=== PATIENT | male | born 1955 | race Caucasian/White ===

== ENCOUNTER 2018-03-09 09:51 | Emergency (ER) | payer OTHER ==
--- NOTE | 2018-03-09 09:55 | ER Document Report ---
ED Neuro Symptoms/Deficit - General Stated Complaint: STROKE ALERT Time Seen by Provider: 03/09/18 09:54 Notes: 62-year-old male presents via EMS with chief complaint of stroke. Symptoms began approximately 530 this morning. Patient was recently discharged from [facility] for renal failure on dialysis. Had recent surgery to the left upper extremity for AV fistula for dialysis. states that he was taking his medications when he became garbled and speech and fell onto the floor. Whole left side was affected. Moving right upper extremity and right leg. Difficulty with speech. Facial droop. Looking to the right. - HPI Patient complains to provider of: Difficulty standing, Difficulty walking, Facial Droop, Falling, Paralysis, Paresthesia, Speech Impairment, Vision Changes , Weakness Onset: This morning Symptoms are: Constant Duration: Continues in ED - Related Data Allergies/Adverse Reactions: Sulfa (Sulfonamide Antibiotics) Adverse Reaction (Verified 03/09/18 10:27) Vomiting sulfamethoxazole [From Bactrim] Adverse Reaction (Verified 03/09/18 10:27) Vomiting trimethoprim [From Bactrim] Adverse Reaction (Verified 03/09/18 10:27) Vomiting Past Medical History - General Information source: Relative - Social History Smoking Status: Unknown if Ever Smoked Cigarette use (# per day): No Frequency of alcohol use: None Drug Abuse: None Lives with: Family, Spouse/Significant other Family History: Reviewed & Not Pertinent - Medical History Notes: Hypertension, diabetes, renal failure Review of Systems - Review of Systems -: Yes ROS unobtainable due to patient's medical condition Physical Exam - Vital signs Interpretation: Hypertensive - General General appearance: Appears well, Alert - HEENT Head: Normocephalic, Atraumatic Eyes: Normal Pupils: PERRL Notes: Left-sided facial droop, right gaze - Respiratory Respiratory status: No respiratory distress Chest status: Nontender Breath sounds: Normal Chest palpation: Normal - Cardiovascular Rhythm: Regular Heart sounds: Normal auscultation Murmur: No - Abdominal Inspection: Normal Distension: No distension Bowel sounds: Normal Tenderness: Nontender Organomegaly: No organomegaly - Back Back: Normal, Nontender - Extremities General upper extremity: Normal inspection, Nontender, Normal color, Normal ROM , Normal temperature General lower extremity: Normal inspection, Nontender, Normal color, Normal ROM , Normal temperature, Normal weight bearing. No: Sal's sign - Neurological Neuro grossly intact: No Cognition: Confused [place] Coma Scale Eye Opening: Spontaneous [place] Coma Scale Motor: None - Able to move right upper extremity and right lower extremity. Complete left-sided neglect Speech: Expressive aphasia Cranial nerves: Facial palsy, Gaze palsy Motor strength normal: RUE, RLE. No: LUE, LLE Sensory: Normal - Skin Skin Temperature: Warm Skin Moisture: Dry Skin Color: Normal Course - Re-evaluation Re-evalutation: 03/09/18 10:20 Patient is right at 4-1/2 hours, hypertensive, recent vascular surgery. Does not meet criteria for intravenous thrombolytics but may benefit from neurovascular interventional treatment. Will attempt to transfer immediately. CT scan report read as consistent with large right MCA CVA. 03/09/18 10:46 Patient accepted at [facility] in [place]. Dr. Nelson and Dr. Franklin accepting. Will readdress airway management when care flight gets here. I have spoken with the family and is okay with endotracheal intubation if needed. At this time patient does have a mild gag is sitting upright. Is n.p.o. 03/09/18 10:51 Laboratory 03/09/18 03/09/18 03/09/18 10:04 10:04 10:04 WBC 5.4 RBC 3.82 L Hgb 9.6 L Hct 30.7 L MCV 80 MCH 25.2 L MCHC 31.4 L RDW 19.7 H Plt Count 175 Seg Neutrophils % 67.1 Lymphocytes % 20.0 Monocytes % 6.6 Eosinophils % 5.2 Basophils % 1.1 Absolute Neutrophils 3.6 Absolute Lymphocytes 1.1 Absolute Monocytes 0.4 Absolute Eosinophils 0.3 Absolute Basophils 0.1 PT 15.0 INR 1.13 APTT 26.8 Sodium 151.7 H Potassium 5.4 H Chloride 109 H Carbon Dioxide 25 Anion Gap 18 BUN 69 H Creatinine 3.41 H Est GFR ( Amer) 22 L Est GFR (Non-Af Amer) 18 L Glucose 179 H Calcium 9.1 Total Bilirubin 0.7 Direct Bilirubin 0.4 Neonat Total Bilirubin Not Reportable Neonat Direct Bilirubin Not Reportable Neonat Indirect Bili Not Reportable AST 12 L ALT 22 Alkaline Phosphatase 74 Creatine Kinase 36 L Total Protein 6.4 Albumin 4.1 he has been reevaluated. At this time she patient remained stable for transport. 10:55 AM - Laboratory Result Diagrams: 03/09/18 10:04 03/09/18 10:04 - EKG Interpretation by Me EKG shows normal: Sinus rhythm, [place], Intervals, QRS Complexes. abnormal: ST-T Waves Additional EKG results interpreted by me: 03/09/18 10:17 ST segment depression noted in V4 with T-wave inversions in lead II, III, aVF, V4 V5 and V6 Critical Care Note - Critical Care Note Total time excluding time spent on procedures (mins): 60 Comments: Acute strokelike symptoms, consultation with specialists, coordination of care. ED Alteplase [employer]/Exc Criteria - Inclusion Criteria: 1: Patient presented to ED within 3 hours of acute ischemic stroke symptom onset ? -: No 2: Did baseline CT exclude intracranial hemorrhage and/or other risk factors? -: Yes 3: Is the age of the patient 18 years of age or greater? -: Yes : If any of the above questions are answered "NO" then stop, patient is not a candidate for Alteplase, : If all of the above questions are answered "YES" then continue with Exclusion Criteria. - Exclusion Criteria: 1: Is there evidence of intracranial hemorrhage on baseline CT? -: No 2: Is there suspicion of subarachnoid hemorrhage (even if CT negative)? -: No 3: Is there a history of serious head trauma, recent previous stroke or LA within 3 months? -: No 4: Does the patient have a clinical presentation consistent with LA or post-LA pericarditis? -: No 5: Is there history of intracranial hemorrhage? -: No 6: On repeated measurement is Systolic BP greater than 185mmHg or Diastolic BP greater that 110 mmHg and is aggressive treatment needed to reduce blood pressure to these limits (e.g. constant infusion of an anti-hypertensive)? -: No 7: Did the patient awake with stroke symptoms? -: No 8: Has the patient had a lumbar puncture or an arterial puncture at a non- compressile site within 7 days? -: No 9: With in the last 14 days did the patient have surgery or major trauma? -: Yes 10: Is the patient or less than 2 weeks? -: No 11: Was there any active bleeding or acute trauma? -: No 12: Does the patient have intracranial neoplasm, arteriovenous malformation or aneurysm? -: Yes - fistula left arm 13: Does the patient have abnormal glucose (less than 50 or greater than 400mg/ dl)? Record glucose in Comment. -: No 14: Patient has rapidly improving symptoms at the time Alteplase is to be Administered. -: No 15: Does the patient have any risks for bleeding, including but not limited to: a.: Current use of Coumadin with PT greater than 15 seconds or INR greater than 1.7. b.: Current use of Pradaxa (Dabigatran). c.: Heparin administereed within the past 48 hours and PTT elevated. d.: Platelet count less than 100,000/mm. e.: Major surgery or serious trauma within 14 days. f.: Gastrointestinal or gynecological urinary bleeding within 14 days. g.: Myocardial Infarction (LA) within 3 months. -: Yes : If the answer to any of the above questions is "YES" then stop, the patient is not a candidate for Alteplase. : If the answer to all of the above questions is "NO" then the patient may be eligible for the Administration of Alteplase. : If the patient is noted to have seizure activity at onset of Stroke symptoms; Consult Neurologist for further evaluation. - The patient is: -: Included and is eligible to receive Alteplase. *Initiate bed placement at higher level of care* --: No Reviewd risks & benefits of thrombolytic therapy: I have reviewed the risks and benefits of thrombolytic therapy with the patient and/or his/her family. Yes -: Excluded and not eligible to receive Alteplase for the above exclusions. --: Yes - Greater than 3 hours symptoms, recent surgery, AV malformation ( surgical) -: Excluded and not eligible to receive Alteplase for other reasons (specify in comments): - Diagnosis of TIA: -: Patient presented with transient symptoms that are now resolved and no other neurologic findings are currently present. List symptoms in comments. -: Patient is NOT a candidate for tPA. -: ____(put name in comment) has been consulted for admission and continued evaluation of risk factor assessment. ED NIH Stroke Scale - NIH Stroke Scale When completed:: Before Alteplase *: 1. NIH scale should be completed with appropriate accompanying assessment tools. *: 2. The NIH should reflect what the patient is capable of doing and should not be coached by the clinician. 1a. Level of Consciousness: 0=Alert;keenly responsive -: 1=Drowsy -: 2=Obtunded -: 3=Coma/unresponsive or reflex to noxious stimuli. 1a. Responses: 2 1b. Orientation Questions: a. What month is it? -: b. How old are you? -: 0=Answers both questions correctly. -: 1=Answers one question correctly or patient is intubated or has orotracheal trauma. -: 2=Answers neither question correctly. 1b. Responses: 2 1c. Response to commands: a. Open and close eyes? -: b. Manager Urgent [facility] and release hand? -: Credit is given despite weakness. Demonstration of task is permitted. Substitute command if hands cannot be used. -: 0=Performs both tasks correctly -: 1=Performs one task correctly -: 2=Performs neither task correctly 1c. Responses: 0 2. Gaze: Establish eye contact and instruct patient to "Follow my finger" -: 0=Normal -: 1=Partial gaze palsy. Gaze is abnormal in one or both eyes, but where forced deviation or total gaze paresis is not present. -: 2=Forced deviation or total gaze paresis. 2. Responses: 2 3. Visual Erwin: Sees fingers in all four quadrants. -: 0=No visual loss. -: 1=Partial hemianopsia. -: 2=Complete hemianopsia. -: 3=Bilateral hemianopsia (including Cortical blindness) 3. Responses: 2 4. Facial Movement: Instruct patient to: -: a. Show me your teeth -: b. Raise your eyebrows -: c. Close your eyes -: d. Smile -: 0=Normal symmetrical movement -: 1=Minor paralysis (flattened nasolabial fold, asymmetry on smiling). -: 2=Partial paralysis (total or near total paralysis of lower face). -: 3=Complete paralysis of upper and lower face 4. Responses: 3 5. Motor functions (left arm): Alternate sides and extend each arm with palms down (90 degrees if sitting or 45 degrees for supine). -: 0=No drift;limb holds for full 10 seconds. -: 1=Drift; limb holds but drifts down before full 10 seconds, but does not hit bed. -: 2=Some effort against gravity; limb cannot get to or maintain position. -: 3=No effort against gravity; limb falls. -: 4=No movement. -: UN=Amputation, joint fusion, explain in comments. 5. Responses (left arm): 4 5. Motor Functions (right arm): Alternate sides and extend each arm with palms down (90 degrees if sitting or 45 degrees for supine). -: 0=No drift;limb holds for full 10 seconds. -: 1=Drift; limb holds but drifts down before full 10 seconds, but does not hit bed. -: 2=Some effort against gravity; limb cannot get to or maintain position. -: 3=No effort against gravity; limb falls. -: 4=No movement. -: UN=Amputation, joint fusion, explain in comments. 5. Responses (right arm): 0 6. Motor Functions (left leg): With patient lying supine, alternate sides and extend each leg (30 degrees always while supine). -: 0=No drift, leg holds position for full 5 seconds -: 1=Drift; leg falls before full 5 seconds but does not hit bed. -: 2=Some effort against gravity, leg falls to bed but some effort against gravity. -: 3=No effort against gravity, leg falls to bed immediately. -: 4=No movement. -: UN=Amputation, joint fusion; explain in comments. 6. Responses (left leg): 4 6. Motor Functions (right leg): With patient lying supine, alternate sides and extend each leg (30 degrees always while supine). -: 0=No drift, leg holds position for full 5 seconds -: 1=Drift; leg falls before full 5 seconds but does not hit bed. -: 2=Some effort against gravity, leg falls to bed but some effort against gravity. -: 3=No effort against gravity, leg falls to bed immediately. -: 4=No movement. -: UN=Amputation, joint fusion; explain in comments. 6. Responses (right leg): 0 7. Limb Ataxia: With eyes open instruct patient to: -: a. "Touch your finger to your nose". -: b. "Touch your heel to your vences" -: 0=Absent -: 1=Present in one limb. -: 2=Present in two limbs. -: UN=Amputation or joint fusion; explain in comments. 7. Responses: 1 7. If ataxia present choose as appropriate: Right arm, Right leg 8. Sensory: Test sensation using pinprick or noxious stimuli. Test as many body parts as possible. -: 0=Normal;no sensory loss -: 1=Mile to moderate sensory loss (patient feels pin prick but is less sharp on affected side). -: 2=Severe or total sensory loss. 8. Responses: 2 9. Best Language: Instruct patient to: -: a. "Describe what you see in this picture." -: b. "Name the items in this picture." -: c. "Read these sentences." -: 0=No aphasia, normal -: 1=Mild to moderate aphasia. -: 2=Severe aphasia -: 3=Mute, global aphasia, no usable speech or auditory comprehension. 9. Responses: 3 10. Articulation, Dysarthia: Instruct patient to: -: "Read these words" or "Repeat these words" -: 0=Normal -: 1=Mild to moderate; patient may slur some words but can be understood without difficulty. -: 2=Severe; patients speech so slurred as to be unintelligible in the absence of dysphasia. -: UN=Intubated or other physical barrier, explain in comments. 10. Responses: 2 11. Extinction or inattention: 0=No abnormality -: 1= Visual, tactile, auditory, spatial, or personal inattention or extinction to bilateral simulation in one or the sensory modalities. -: 2=Profound lito-inattention or lito-inattention to more than one modality; does not recognize own hand. 11. Responses: 2 Total Score: 29 Discharge - Discharge Clinical Impression: Acute right MCA stroke Condition: Poor
--- NOTE | 2018-03-09 10:13 | RADIOLOGY REPORT (SQ) ---
EXAM DESCRIPTION: CT HEAD WITHOUT COMPLETED DATE/TIME: 03/09/2018 10:03 am REASON FOR STUDY: stroke COMPARISON: None. TECHNIQUE: Axial images acquired through the brain without intravenous contrast. Images reviewed wi th bone, brain and subdural windows. Additional sagittal and coronal reconstructions were generated. Images stored on PACS. All CT scanners at this facility use dose modulation, iterative reconstruction, and/or weight based d osing when appropriate to reduce radiation dose to as low as reasonably achievable (ALARA). [facility]: Dose Right [facility]: CareDose [facility]: Dose Right [facility]: Teradose 4D [facility]: Xylo RADIATION DOSE: CT Rad equipment meets quality standard of care and radiation dose reduction techniq ues were employed. CTDIvol: 53.2 mGy. DLP: 991 mGy-cm. mGy. LIMITATIONS: None. FINDINGS: VENTRICLES: Normal size and contour. CEREBRUM: There is loss of campbell-white differentiation in the right hemisphere over the frontoparietal and temporal regions. Insular cortex is difficult to visualize, external capsule difficult to visua lize. Findings are worrisome for a large right MCA acute infarct. On axial image 15, a dense right middle cerebral artery sign may be present. These findings were discussed with Dr. Rangel. No midl ine shift. No acute intracranial hemorrhage CEREBELLUM: No masses. No hemorrhage. No alteration of density. No evidence for acute infarction. EXTRAAXIAL SPACES: No fluid collections. No masses. ORBITS AND GLOBE: No intra- or extraconal masses. Normal contour of globe without masses. CALVARIUM: No fracture. PARANASAL SINUSES: No fluid or mucosal thickening. SOFT TISSUES: No mass or hematoma. OTHER: No other significant finding. IMPRESSION: Large acute right MCA distribution nonhemorrhagic infarct. EVIDENCE OF ACUTE STROKE: Yes COMMENT: Pertinent findings on the imaging study reported as a CRITICAL RESULT to ANIKA RANGEL DO at10:00 on 03/09/2018. Category of Critical Result: CT code stroke Quality ID # [id number]: Final reports with documentation of one or more dose reduction techniques (e.g., Au tomated exposure control, adjustment of the mA and/or kV according to patient size, use of iterative reconstruction technique) TECHNICAL DOCUMENTATION: JOB ID: [id number] [employer]- All Rights Reserved Reading location - IP/workstation name: [facility]
--- NOTE | 2018-03-09 10:17 | RADIOLOGY REPORT (SQ) ---
EXAM DESCRIPTION: CHEST SINGLE VIEW COMPLETED DATE/TIME: 03/09/2018 10:05 am REASON FOR STUDY: stroke COMPARISON: None. EXAM PARAMETERS: NUMBER OF VIEWS: One view. TECHNIQUE: Single frontal radiographic view of the chest acquired. RADIATION DOSE: NA LIMITATIONS: None. FINDINGS: LUNGS AND PLEURA: Pulmonary edema in. MEDIASTINUM AND HILAR STRUCTURES: No masses. Contour normal. HEART AND VASCULAR STRUCTURES: Cardiomegaly. Pulmonary edema. BONES: No acute findings. HARDWARE: None in the chest. OTHER: No other significant finding. IMPRESSION: Cardiomegaly with pulmonary edema. TECHNICAL DOCUMENTATION: JOB ID: [id number] [employer]- All Rights Reserved Reading location - IP/workstation name: [email or web address]
[2018-03-09 10:21] LABS: ABSOLUTE BASOPHILS # (AUTO) 0.1 10^3/uL (0.0-0.2); ABSOLUTE EOSINOPHILS # (AUTO) 0.3 10^3/uL (0.0-0.6); ABSOLUTE LYMPHOCYTES (AUTO) 1.1 10^3/uL (0.5-4.7); ABSOLUTE MONOCYTES (AUTO) 0.4 10^3/uL (0.1-1.4); ABSOLUTE NEUT (AUTO) 3.6 10^3/uL (1.7-8.2); BASOPHILS % (AUTO) 1.1 % (0-2); EOSINOPHILS % (AUTO) 5.2 % (0-6); HEMATOCRIT 30.7 % (37.9-51.0); HEMOGLOBIN 9.6 g/dL (13.5-17.0); MEAN CORPUSCULAR HEMOGLOBIN 25.2 pg (27.0-33.4); MEAN CORPUSCULAR HGB CONC 31.4 g/dL (32.0-36.0); MEAN CORPUSCULAR VOLUME 80 fl (80-97); MONOCYTES % (AUTO) 6.6 % (3-13); PLATELET COUNT 175 10^3/uL (150-450); RED BLOOD COUNT 3.82 10^6/uL (4.35-5.55); RED CELL DISTRIBUTION WIDTH 19.7 % (11.5-14.0); SEGMENTED NEUTROPHILS % (AUTO) 67.1 % (42-78); TOTAL CELLS COUNTED % (AUTO) 100 %; WHITE BLOOD COUNT 5.4 10^3/uL (4.0-10.5)
[2018-03-09 10:22] LABS: INTERNATIONAL RATION (INR) 1.13; PARTIAL THROMBOPLASTIN TIME 26.8 SEC (23.5-35.8)
[2018-03-09 10:26] VITALS: BP 145/129
[2018-03-09 10:39] LABS: ALANINE AMINOTRANSFERASE 22 U/L (21-72); ALBUMIN 4.1 g/dL (3.5-5.0); ALKALINE PHOSPHATASE 74 U/L (38-126); ANION GAP 18 (5-19); ASPARTATE AMINO TRANSFERASE 12 U/L (17-59); BILIRUBIN,DIRECT 0.4 mg/dL (0.0-0.4); BILIRUBIN,TOTAL 0.7 mg/dL (0.2-1.3); BLOOD UREA NITROGEN 69 mg/dL (7-20); CALCIUM 9.1 mg/dL (8.4-10.2); CARBON DIOXIDE 25 mmol/L (22-30); CHLORIDE 109 mmol/L (98-107); CREATINE KINASE 36 U/L (55-170); GLUCOSE 179 mg/dL (75-110); POTASSIUM 5.4 mmol/L (3.6-5.0); SODIUM 151.7 mmol/L (137-145); TOTAL PROTEIN 6.4 g/dL (6.3-8.2)
[2018-03-09 10:51] LABS: CREATINE KINASE MB 1.07 ng/mL (<4.55)
[2018-03-09 10:52] LABS: TROPONIN I 0.447 ng/mL
--- NOTE | 2018-03-09 21:07 | EKG REPORT ---
SEVERITY:- ABNORMAL ECG - SINUS RHYTHM REPOL ABNRM SUGGESTS ISCHEMIA, DIFFUSE LEADS : Confirmed by: Rosalind Hilliard 09-Mar-2018 21:06:50
== END 2018-03-09 11:30 | disposition short-term general hospital (02) ==
LOC: ER 09:51
DX: I63.9 Cerebral infarction, unspecified (principal); R29.810 Facial weakness; R47.01 Aphasia; R26.2 Difficulty in walking, not elsewhere classified; R20.2 Paresthesia of skin; N18.9 Chronic kidney disease, unspecified; Z99.2 Dependence on renal dialysis; Z98.890 Other specified postprocedural states
CPT/HCPCS: 36415; 70450; 71045; 80053; 82550; 82553; 84484; 85025; 85610; 85730; 93005; 93010; 99291

== ENCOUNTER 2018-06-19 14:57 | Emergency (ER) | payer OTHER, BC ==
--- NOTE | 2018-06-19 15:42 | ER Document Report ---
ED General - General Mode of Arrival: Ambulatory Information source: Patient TRAVEL OUTSIDE OF THE [place] IN LAST 30 DAYS: No <ELDA GRAVES - Last Filed: 06/19/18 17:16> <YENNY LIND - Last Filed: 06/19/18 18:19> - General Stated Complaint: WEAKNESS Time Seen by Provider: 06/19/18 15:12 Notes: 62-year-old male who presents to the emergency department today for PICC line placement. Patient is currently residing at [facility]. Patient has chronic lower extremity wounds secondary to peripheral vascular disease. Patient recently had a posterior tibial "clean out" according to family at bedside. (ELDA GRAVES) - Related Data Allergies/Adverse Reactions: Sulfa (Sulfonamide Antibiotics) Adverse Reaction (Verified 03/09/18 10:27) Vomiting sulfamethoxazole [From Bactrim] Adverse Reaction (Verified 03/09/18 10:27) Vomiting trimethoprim [From Bactrim] Adverse Reaction (Verified 03/09/18 10:27) Vomiting Past Medical History - General Information source: Patient - Social History Smoking Status: Never Smoker Cigarette use (# per day): No Family History: Reviewed & Not Pertinent - Past Medical History Cardiac Medical History: Reports: Hx Atrial Fibrillation Renal/ Medical History: Denies: Hx Peritoneal Dialysis - pt may start but hasnt decided Past Surgical History: Reports: Hx Appendectomy, Hx Orthopedic Surgery - bilateral, Hx Tonsillectomy <ELDA GRAVES - Last Filed: 06/19/18 17:16> Review of Systems - Review of Systems Constitutional: See HPI, Other - sent here for PICC line EENT: No symptoms reported Cardiovascular: No symptoms reported Respiratory: No symptoms reported Gastrointestinal: No symptoms reported Genitourinary: No symptoms reported Male Genitourinary: No symptoms reported Musculoskeletal: No symptoms reported Skin: See HPI, Lesions - multiple lower extremity wounds Hematologic/Lymphatic: No symptoms reported Neurological/Psychological: No symptoms reported -: Yes All other systems reviewed and negative <ELDA GRAVES - Last Filed: 06/19/18 17:16> Physical Exam <ELDA GRAVES - Last Filed: 06/19/18 17:16> <YENNY LIND - Last Filed: 06/19/18 18:19> - Notes Notes: Physical Exam: General: Alert. HEENT: Normocephalic. Atraumatic. PERRL. Extraocular movements intact. Oropharynx clear. Neck: Supple. Non-tender. Respiratory: No respiratory distress. Clear and equal breath sounds bilaterally. Cardiovascular: Regular rate and rhythm. Abdominal: Normal Inspection. Non-tender. No distension. Normal Bowel Sounds. Back: Non-tender. No deformity or step off. Extremities: Moves all four extremities. Upper extremities: Normal inspection. Normal ROM. Lower extremities: Lower extremity chronic discoloration but legs are warm to the touch, right heel is bandaged. No edema. Normal ROM. Neurological: Normal cognition. AAOx4. Normal speech. Psychological: Normal affect. Normal Mood. Skin: Warm. Dry. Normal color. (ELDA GRAVES) Course <ELDA GRAVES - Last Filed: 06/19/18 17:16> - Laboratory Result Diagrams: 06/19/18 17:30 06/19/18 17:30 <YENNY LIND - Last Filed: 06/19/18 18:19> - Re-evaluation Re-evalutation: 06/19/18 18:17 Patient daughter was advised to [facility] to [facility] to have him brought to the emergency room at [address] he should be here and ready to go by the time the radiology department can take him back to do the PICC line. He should then have plenty of time to make it to his 10 AM dialysis time. (YENNY LIND) - Laboratory Laboratory results interpreted by me: 06/19/18 06/19/18 06/19/18 17:30 17:30 17:30 WBC 11.8 H RBC 4.12 L Hgb 10.3 L Hct 32.2 L MCV 78 L MCH 24.9 L MCHC 31.9 L RDW 22.7 H Absolute Neutrophils 8.8 H PT 28.0 H BUN 43 H Creatinine 6.56 H Est GFR ( Amer) 10 L Est GFR (Non-Af Amer) 9 L Glucose 143 H Total Protein 5.9 L Albumin 3.2 L Discharge <ELDA GRAVES - Last Filed: 06/19/18 17:16> <YENNY LIND - Last Filed: 06/19/18 18:19> - Discharge Clinical Impression: Need for intravenous access, Anticoagulated on Coumadin Diabetic foot ulcer Qualifiers: Diabetic foot ulcer location: heel Diabetes mellitus type: other specified ( including ERIN) Laterality: right Non-pressure ulcer stage: unspecified non- pressure ulcer stage Qualified Code(s): E13.621 - Other specified diabetes mellitus with foot ulcer; L97.419 - Non-pressure chronic ulcer of right heel and midfoot with unspecified severity; L97.419 - Non-pressure chronic ulcer of right heel and midfoot with unspecified severity; L97.419 - Non-pressure chronic ulcer of right heel and midfoot with unspecified severity; L97.419 - Non -pressure chronic ulcer of right heel and midfoot with unspecified severity Chronic renal failure Qualifiers: Chronic kidney disease stage: stage 5 Qualified Code(s): N18.5 - Chronic kidney disease, stage 5 Condition: Stable Disposition: HOME, SELF-CARE Additional Instructions: Return to the emergency room early in the day tomorrow to have a PICC line inserted by the radiology department. [employer] Attestation: 06/19/18 18:08 I personally performed the services described in the documentation, reviewed and edited the documentation which was dictated to the scribe in my presence, and it accurately records my words and actions. (YENNY ILND) Scribe Documentation - Scribe Written by Vandana:: Vandana Alvarado, 06/19/2018 1719 acting as scribe for :: Yadiel <ELDA GRAVES - Last Filed: 06/19/18 17:16>
[2018-06-19 17:47] LABS: ABSOLUTE BASOPHILS # (AUTO) 0.1 10^3/uL (0.0-0.2); ABSOLUTE EOSINOPHILS # (AUTO) 0.1 10^3/uL (0.0-0.6); ABSOLUTE MONOCYTES (AUTO) 0.7 10^3/uL (0.1-1.4); ABSOLUTE NEUT (AUTO) 8.8 10^3/uL (1.7-8.2); BASOPHILS % (AUTO) 0.5 % (0-2); EOSINOPHILS % (AUTO) 1.2 % (0-6); HEMATOCRIT 32.2 % (37.9-51.0); HEMOGLOBIN 10.3 g/dL (13.5-17.0); MEAN CORPUSCULAR HEMOGLOBIN 24.9 pg (27.0-33.4); MEAN CORPUSCULAR HGB CONC 31.9 g/dL (32.0-36.0); MEAN CORPUSCULAR VOLUME 78 fl (80-97); MONOCYTES % (AUTO) 6.2 % (3-13); PLATELET COUNT 268 10^3/uL (150-450); RED BLOOD COUNT 4.12 10^6/uL (4.35-5.55); RED CELL DISTRIBUTION WIDTH 22.7 % (11.5-14.0); SEGMENTED NEUTROPHILS % (AUTO) 75.1 % (42-78); TOTAL CELLS COUNTED % (AUTO) 100 %; WHITE BLOOD COUNT 11.8 10^3/uL (4.0-10.5)
[2018-06-19 17:56] LABS: INTERNATIONAL RATION (INR) 2.48
[2018-06-19 18:01] LABS: ALANINE AMINOTRANSFERASE 34 U/L (21-72); ALBUMIN 3.2 g/dL (3.5-5.0); ALKALINE PHOSPHATASE 79 U/L (38-126); ANION GAP 15 (5-19); ASPARTATE AMINO TRANSFERASE 59 U/L (17-59); BILIRUBIN,DIRECT 0.4 mg/dL (0.0-0.4); BILIRUBIN,TOTAL 0.5 mg/dL (0.2-1.3); BLOOD UREA NITROGEN 43 mg/dL (7-20); CALCIUM 8.5 mg/dL (8.4-10.2); CARBON DIOXIDE 27 mmol/L (22-30); CHLORIDE 99 mmol/L (98-107); GLUCOSE 143 mg/dL (75-110); POTASSIUM 4.5 mmol/L (3.6-5.0); SODIUM 140.8 mmol/L (137-145); TOTAL PROTEIN 5.9 g/dL (6.3-8.2)
== END 2018-06-19 19:49 | disposition home or self-care (01) ==
LOC: ER 14:57
DX: E13.621 Other specified diabetes mellitus with foot ulcer (principal); E13.51 Other specified diabetes mellitus with diabetic peripheral angiopathy without gangrene; E13.22 Other specified diabetes mellitus with diabetic chronic kidney disease; L97.419 Non-pressure chronic ulcer of right heel and midfoot with unspecified severity; N18.5 Chronic kidney disease, stage 5; Z99.2 Dependence on renal dialysis; I48.91 Unspecified atrial fibrillation; Z79.01 Long term (current) use of anticoagulants
CPT/HCPCS: 36415; 80053; 85025; 85610; 99285

== ENCOUNTER 2018-06-20 08:06 | Emergency (ER) | payer BC, OTHER ==
[2018-06-20] MEDS ORDERED: MORPHINE SULFATE 10 MG/ML INJ IV ONE (08:30)
--- NOTE | 2018-06-20 08:44 | ER Document Report ---
ED General - General Chief Complaint: Other Stated Complaint: PICC LINE PROBLEMS Time Seen by Provider: 06/20/18 08:16 Mode of Arrival: Ambulatory Information source: Patient Notes: 62-year-old male with atrial fibrillation, coronary artery disease, multiple myeloma, osteomyelitis of the foot presents from [facility] with request for PICC line placement. Per nursing facility patient is requiring long -term antibiotics. Patient was seen yesterday in the emergency department and advised to return this morning for PICC line placement. After speaking to our vascular surgeon and radiologist they are declining PICC line placement at this time due to the patient's end-stage renal disease and dialysis requirements. We have contacted Dr. Whitley the patient's seam stay stitcher who suggests that we may be able to administer antibiotics during dialysis. Patient currently complaining of left foot pain. TRAVEL OUTSIDE OF THE [place] IN LAST 30 DAYS: No - HPI Onset: Yesterday Onset/Duration: Gradual Quality of pain: Throbbing Severity: Moderate Associated symptoms: None Exacerbated by: Movement Relieved by: Denies Similar symptoms previously: Yes Recently seen / treated by doctor: Yes - 06/19/2018 - Related Data Allergies/Adverse Reactions: Sulfa (Sulfonamide Antibiotics) Adverse Reaction (Verified 06/20/18 08:47) Vomiting sulfamethoxazole [From Bactrim] Adverse Reaction (Verified 06/20/18 08:47) Vomiting trimethoprim [From Bactrim] Adverse Reaction (Verified 06/20/18 08:47) Vomiting Past Medical History - General Information source: Patient, Relative, [facility] Records, Outside Facility Records - Social History Smoking Status: Former Smoker Frequency of alcohol use: None Drug Abuse: None Lives with: [facility] Family History: Reviewed & Not Pertinent Patient has suicidal ideation: No Patient has homicidal ideation: No - Past Medical History Cardiac Medical History: Reports: Hx Atrial Fibrillation Renal/ Medical History: Denies: Hx Peritoneal Dialysis - pt may start but hasnt decided Past Surgical History: Reports: Hx Appendectomy, Hx Orthopedic Surgery - bilateral, Hx Tonsillectomy Review of Systems - Review of Systems Notes: REVIEW OF SYSTEMS: CONSTITUTIONAL : Denies fever, chills, or sweats. Denies recent illness. Denies weight loss, recent hospitalizations. EENT: Denies visual changes, eye pain. Denies nasal or sinus congestion or discharge. Denies sore throat, oral lesions, difficulty swallowing. CARDIOVASCULAR: Denies chest pain. Denies palpitations. Denies lower extremity edema. RESPIRATORY: Denies cough, cold, or chest congestion. Denies shortness of breath, wheezing. GASTROINTESTINAL: Denies abdominal pain or distention. Denies nausea, vomiting , or diarrhea. Denies blood in vomitus, stools, or per rectum. Denies black, tarry stools. Denies constipation. GENITOURINARY: Denies difficulty urinating, painful urination, frequency, blood in urine, or vaginal discharge. MUSCULOSKELETAL: SKIN: Denies rash, lesions or sores. HEMATOLOGIC : Denies easy bruising or bleeding. LYMPHATIC: Denies swollen glands. NEUROLOGICAL: Denies confusion or altered mental status. Denies passing out or loss of consciousness. Denies dizziness or lightheadedness. Denies headache. Denies weakness or paralysis. Denies problems difficulty with ambulation, slurred speech. Denies sensory loss, numbness, or tingling. Denies seizures. PSYCHIATRIC: Denies anxiety or stress. Denies depression, suicidal ideation, or homicidal ideation. Denies visual or auditory hallucinations. Physical Exam - Vital signs Vitals: Temp Pulse Resp BP Pulse Ox 98.2 F 70 18 177/114 H 96 06/20/18 08:47 06/20/18 08:47 06/20/18 08:47 06/20/18 08:47 06/20/18 08:47 Interpretation: Hypertensive. No: Febrile - Notes Notes: PHYSICAL EXAMINATION: GENERAL: Well-appearing, well-nourished and in no acute distress. HEAD: Atraumatic, normocephalic. EYES: Pupils equal round and reactive to light, extraocular movements intact, sclera anicteric, conjunctiva are normal. ENT: Nares patent, oropharynx clear without exudates. Moist mucous membranes. NECK: Normal range of motion, supple without lymphadenopathy LUNGS: Breath sounds clear to auscultation bilaterally and equal. No wheezes rales or rhonchi. HEART: Regular rate and rhythm without murmurs ABDOMEN: Soft, nontender, nondistended abdomen. No guarding, no rebound. No masses appreciated. Musculoskeletal: Normal range of motion, no pitting or edema. No cyanosis. NEUROLOGICAL: Cranial nerves grossly intact. Normal speech, normal gait. Normal sensory, motor exams PSYCH: Normal mood, normal affect. SKIN: Bilateral foot ulcers. Course - Re-evaluation Re-evalutation: 06/20/18 10:22 62-year-old male with atrial fibrillation, coronary artery disease, multiple myeloma, osteomyelitis of the foot presents from [facility] with request for PICC line placement. Per nursing facility patient is requiring long -term antibiotics. Patient was seen yesterday in the emergency department and advised to return this morning for PICC line placement. After speaking to our vascular surgeon and radiologist they are declining PICC line placement at this time due to the patient's end-stage renal disease and dialysis requirements. We have contacted Dr. Whitley the patient's seam stay stitcher who suggests that we may be able to administer antibiotics during dialysis. Patient currently complaining of left foot pain. Patient was transported to dialysis. We did speak to the daughter at length regarding the need for her to talk to the patient's nephrology who is not Dr. Whitley. Patient provided the opportunity to ask questions, and express concerns. Discharge instructions discussed. Patient is agreeable with discharge home. Return indications explained and discussed with the patient who displays understanding. Patient encouraged to return to the emergency department immediately with any concerns. - Vital Signs Vital signs: Temp Pulse Resp BP Pulse Ox 98.2 F 70 18 177/114 H 96 06/20/18 08:47 06/20/18 08:47 06/20/18 08:47 06/20/18 08:47 06/20/18 08:47 Discharge - Discharge Clinical Impression: Need for intravenous access, ESRD (end stage renal disease), Request for PICC placement Hypertension Qualifiers: Hypertension type: unspecified Qualified Code(s): I10 - Essential (primary) hypertension Chronic pain Qualifiers: Chronic pain type: other chronic pain Qualified Code(s): G89.29 - Other chronic pain Condition: Good Disposition: SNF-Other Additional Instructions: Unfortunately we are unable to place a PICC line due to the fact that you are a dialysis patient. Please discuss with your seam stay stitcher during dialysis your need for chronic antibiotics. Forms: Elevated Blood Pressure
[2018-06-20 08:47] VITALS: BP 177/114
== END 2018-06-20 09:38 ==
LOC: ER 08:06
DX: I12.0 Hypertensive chronic kidney disease with stage 5 chronic kidney disease or end stage renal disease (principal); N18.6 End stage renal disease; Z99.2 Dependence on renal dialysis; M79.672 Pain in left foot; G89.29 Other chronic pain; I48.91 Unspecified atrial fibrillation; I25.10 Atherosclerotic heart disease of native coronary artery without angina pectoris; Z87.891 Personal history of nicotine dependence
CPT/HCPCS: 99283; 96374; J2270

== ENCOUNTER → 2018-06-21 | Day surgery (SDC) | payer BC, MEDICARE, OTHER ==
--- NOTE | 2018-06-21 14:52 | RADIOLOGY REPORT (SQ) ---
EXAM DESCRIPTION: PICC INSERTION; U/S GUIDE FOR VASCULAR ACCESS; FLUORO/CV PLACEMENT COMPLETED DATE/TIME: 06/21/2018 2:44 pm REASON FOR STUDY: E13.621 OTHER SPECIFIED DIABETES MELLITUS WITH FOOT ULCER; IV ABX E13.621 OTHER S PECIFIED DIABETES MELLITUS WITH FOOT ULCER COMPARISON: AP chest 03/09/2018 FLUOROSCOPY TIME: 46 seconds 1 ultrasound image and 1 digital fluoroscopic chest image saved to PACS. TECHNIQUE: Fluoroscopic and ultrasound guided PICC placement. LIMITATIONS: None. PROCEDURE: After written consent and assessment were obtained, the patient was brought into the fluo roscopy room and place supine on the table. Ultrasound evaluation of potential access sites were perf ormed. After successfully identifying a patent right basilic, the right arm was prepped and draped in a sterile fashion along with the ultrasound probe. The entry site was anesthetized with 1% lidocaine . A 21 gauge 7 cm needle was advanced through the skin and into the basilic vein under live ultrasoun d guidance. An ultrasound image was saved to PACS confirming access site. A .018 guide wire was the n inserted through the needle and into the venous system. The needle was the removed and an 11 blade scalpel was used to make a 1cm skin incision. A 5 fr peel-away sheath was advanced over the wire and into the venous system. A measurement was then made using the existing wire and live fluoroscopic gu idance. The wire was then removed and the trimmed. The PICC was advanced through the peel-away sheath and into the venous system. The peel-away sheath was removed and the catheter was adhered to the pat ients arm with a stat lock. The catheter was then aspirated and flushed and a sterile bandage was marce summer over the access site. A fluoroscopic spot image was saved to PACS confirming the catheter tip wi thin the superior vena cava. IMPRESSION: SUCCESSFUL PLACEMENT OF A 5 FR DUAL LUMEN 37 CM PICC IN THE RIGHT BASILIC VEIN. COMMENT: Patient medication list reviewed: Yes- Quality ID# 130:Eligible professional attests to doc umenting in the medical record they obtained, updated, or reviewed the patient's current medications. . Quality ID 145: Final reports for procedures using fluoroscopy that document radiation exposure castro da, or exposure time and number of fluorographic images (if radiation exposure indices are not avail able) Quality ID #76: The patient was prepped and draped using maximum sterile barrier technique including cap, mask, sterile gown, sterile gloves, a large sterile sheet, hand hygiene, and 2% Chlorhexidine fo r cutaneous antisepsis. When ultrasound is used, sterile ultrasound techniques are followed requiring sterile gel and sterile probes. TECHNICAL DOCUMENTATION: JOB ID: [id number] [employer]- All Rights Reserved rev-03/23 Reading location - IP/workstation name: [email or web address] [id number]
== END ==
LOC: RAD 14:02
PROVIDERS: ATTEND Family Medicine
DX: E13.621 Other specified diabetes mellitus with foot ulcer (principal)
CPT/HCPCS: 36569; 77001; 76937; J1642

== ENCOUNTER 2018-06-23 21:06 | Emergency (ER) | payer BC, MEDICARE, OTHER ==
[2018-06-23 21:42] LABS: ABSOLUTE BASOPHILS # (AUTO) 0.1 10^3/uL (0.0-0.2); ABSOLUTE EOSINOPHILS # (AUTO) 0.2 10^3/uL (0.0-0.6); ABSOLUTE LYMPHOCYTES (AUTO) 2.4 10^3/uL (0.5-4.7); ABSOLUTE MONOCYTES (AUTO) 0.6 10^3/uL (0.1-1.4); ABSOLUTE NEUT (AUTO) 4.9 10^3/uL (1.7-8.2); BASOPHILS % (AUTO) 0.8 % (0-2); EOSINOPHILS % (AUTO) 2.8 % (0-6); HEMATOCRIT 27.7 % (37.9-51.0); LYMPHOCYTES % (AUTO) 29.5 % (13-45); MEAN CORPUSCULAR HEMOGLOBIN 25.3 pg (27.0-33.4); MEAN CORPUSCULAR HGB CONC 32.4 g/dL (32.0-36.0); MEAN CORPUSCULAR VOLUME 78 fl (80-97); MONOCYTES % (AUTO) 7.5 % (3-13); PLATELET COUNT 293 10^3/uL (150-450); RED BLOOD COUNT 3.54 10^6/uL (4.35-5.55); RED CELL DISTRIBUTION WIDTH 21.7 % (11.5-14.0); SEGMENTED NEUTROPHILS % (AUTO) 59.4 % (42-78); TOTAL CELLS COUNTED % (AUTO) 100 %; WHITE BLOOD COUNT 8.2 10^3/uL (4.0-10.5)
--- NOTE | 2018-06-23 21:44 | ER Document Report ---
ED General - General Chief Complaint: Edema Stated Complaint: left side swelling Time Seen by Provider: 06/23/18 21:36 Notes: Patient is a 62-year-old male with a complex medical history including chronic kidney disease with dialysis dependence effectively no urine output, recent stroke with residual left-sided hemiparesis, morbid obesity, hypertension, atrial fibrillation anticoagulated on Coumadin, recent angioplasty of the left upper extremity secondary to peripheral arterial disease who presents with several hours of progressively worsening swelling over the left side of his chest and left upper extremity. The family first noticed this when they visited today. They state the swelling has gotten progressively worse since onset. The patient has chronic pain with opiate dependence but states that this pain is new and is a dull, throbbing, constant pain to the entire affected area. The patient denies any new additional symptoms. He is completely paralyzed with the extremity at baseline. Family does note that he has had multiple transfers due to having to go to various appointments and wonder if he could have become injured during 1 of these transports. He was referred from the nursing facility where he is currently staying. TRAVEL OUTSIDE OF THE [place] IN LAST 30 DAYS: No - Related Data Allergies/Adverse Reactions: Sulfa (Sulfonamide Antibiotics) Adverse Reaction (Verified 06/20/18 08:47) Vomiting sulfamethoxazole [From Bactrim] Adverse Reaction (Verified 06/20/18 08:47) Vomiting trimethoprim [From Bactrim] Adverse Reaction (Verified 06/20/18 08:47) Vomiting Past Medical History - General Information source: Patient, Relative - Social History Smoking Status: Never Smoker Frequency of alcohol use: None Drug Abuse: None Lives with: Group Home Family History: Reviewed & Not Pertinent - Past Medical History Cardiac Medical History: Reports: Hx Atrial Fibrillation Endocrine Medical History: Reports: Hx Diabetes Mellitus Type 2 Renal/ Medical History: Denies: Hx Peritoneal Dialysis - pt may start but hasnt decided Past Surgical History: Reports: Hx Appendectomy, Hx Orthopedic Surgery - bilateral, Hx Tonsillectomy Review of Systems - Review of Systems Notes: Constitutional: Negative for fever. HENT: Negative for sore throat. Eyes: Negative for visual changes. Cardiovascular: Negative for chest pain. Respiratory: Negative for shortness of breath. Gastrointestinal: Negative for abdominal pain, vomiting or diarrhea. Genitourinary: Negative for dysuria. Musculoskeletal: Positive for left upper extremity swelling and pain Skin: Negative for rash. Neurological: Negative for headaches, positive for left-sided hemiparesis 10 point ROS negative except as marked above and in HPI. Physical Exam - Vital signs Vitals: Resp 18 06/23/18 21:20 Interpretation: Normal Notes: PHYSICAL EXAMINATION: GENERAL: Appears older than stated age, chronically ill in appearance but in no acute distress HEAD: Atraumatic, normocephalic. EYES: Pupils equal round and reactive to light, extraocular movements intact, sclera anicteric, conjunctiva are normal. ENT: nares patent, oropharynx clear without exudates. Mildly dry mucous membranes. NECK: Normal range of motion, supple without lymphadenopathy LUNGS: Breath sounds clear to auscultation bilaterally and equal. No wheezes rales or rhonchi. HEART: Irregular regular rate and rhythm without murmurs, 2+ radial pulses bilaterally. Palpable thrill over the AV fistula in the distal left upper extremity. Chest wall: The left pectoral muscle appears visibly more swollen versus the right. No bruising or erythema over the area. ABDOMEN: Soft, nontender, normoactive bowel sounds. No guarding, no rebound. No masses appreciated. EXTREMITIES: Notable edema approximately 1+ to the entirety of left upper extremity. Patient is unable to range the extremity at baseline secondary to hemiparesis. NEUROLOGICAL: Left-sided hemiparesis which is baseline. PSYCH: Normal mood, normal affect. SKIN: Warm, Dry, normal turgor, no rashes or lesions noted. Course - Re-evaluation Re-evalutation: 06/23/18 21:43 Patient presents with left upper extremity edema that has been present over the last 12 hours. Hemiparetic at baseline from prior stroke and is unable to move the left upper extremity. He does have a fistula in the left distal upper extremity that has a palpable thrill. 2+ radial pulse. Will obtain Doppler ultrasound of the left upper extremity to evaluate for a DVT. Will also obtain an x-ray of the humerus and chest as this appears to be where the swelling is most prominent. 06/23/18 23:52 Patient's left upper extremity Doppler does not show any evidence of an acute DVT. The patient continues to have swelling over the left chest and left upper extremity but family notes has progressed since he has been here. The patient' s INR is nontherapeutic at 1.2. A dose of Lovenox has been given to bridge the patient as he has continued to be subtherapeutic on his Coumadin dosing for at least the past 3-4 days. I increased concerned about the possibility of a subclavian artery occlusion which could produce left upper and chest wall edema and swelling. I have informed the family that he is already dialysis dependent although apparently does make urine once every several days. The family understands that this could effectively remove his ability to make any urine whatsoever and consents to this risk. 06/24/18 01:46 CT of the chest shows no evidence of subclavian artery occlusion. At this point the exact etiology of why the patient is having swelling over the left side of the chest and into the left upper extremity is uncertain to me but it is possible that this is still due to local trauma from either the patient being turned or transported. There is no evidence of bony injury, no evidence of a venous occlusion, no evidence of a proximal arterial occlusion and the patient just had an angioplasty and angiogram less than 2 weeks ago. He continues to have appropriate pulses, capillary refill of the left upper extremity and I do not suspect a critical arterial occlusion. At this point we have initiated Lovenox for bridging as he on therapeutic and I have prescribed this for return to the nursing facility. I have also explained to the family and patient that there is diagnostic uncertainty regarding the cause of his left upper extremity swelling that he does need to follow-up with vascular surgery as this could also be related to his recent angiogram and angioplasty. At this time will discharge with return precautions and follow-up recommendations. Verbal discharge instructions given a the bedside and opportunity for questions given. Medication warnings reviewed. Patient is in agreement with this plan and has verbalized understanding of return precautions and the need for vascular surgery and primary care follow-up in the next 24-48 hours. - Vital Signs Vital signs: Temp Pulse Resp BP Pulse Ox 14 101/74 98 06/24/18 02:29 06/24/18 02:29 06/24/18 02:29 - Laboratory Result Diagrams: 06/23/18 21:24 06/23/18 21:24 Laboratory results interpreted by me: 06/23/18 06/23/18 06/23/18 21:24 21:24 21:24 RBC 3.54 L Hgb 9.0 L Hct 27.7 L MCV 78 L MCH 25.3 L RDW 21.7 H PT 16.6 H BUN 47 H Creatinine 8.05 H Est GFR ( Amer) 8 L Est GFR (Non-Af Amer) 7 L Glucose 134 H - Diagnostic Test Radiology reviewed: Image reviewed, Reports reviewed Radiology results interpreted by me: 06/24/18 01:48 Left humerus x-ray: No acute fracture or dislocation Discharge - Discharge Clinical Impression: Left upper extremity edema, Localized swelling of chest wall, Anticoagulated on Coumadin, Subtherapeutic anticoagulation Chronic renal failure Qualifiers: Chronic kidney disease stage: unspecified stage Qualified Code(s): N18.9 - Chronic kidney disease, unspecified Condition: Stable Disposition: HOME, SELF-CARE Additional Instructions: The exact cause of the swelling in her left upper extremity and chest wall is uncertain but may be due to trauma sustained during a transfer. The CT scan your chest does not show any evidence of a blockage in the subclavian artery in your chest. The venous Doppler ultrasound of your approximate does not show any clot. Your labs do show that your Coumadin level is not high enough. You have been started on Lovenox until your INR comes back to a normal level. Please follow closely with your vascular surgeon and doctor within the next 24- 48 hours. Return if you have worsening pain to the area, increased swelling, fever, or any other symptoms that are worrisome to you. Prescriptions: Enoxaparin Sodium [Lovenox Inj 100 mg/1 ml Disp.syrin] 100 mg SUBCUT Q12 #60 disp.syrin Referrals: ANNIE GALICIA DO [Primary Care Provider] - Follow up as needed
[2018-06-23 22:00] LABS: INTERNATIONAL RATION (INR) 1.28; PROTHROMBIN TIME 16.6 SEC (11.4-15.4)
--- NOTE | 2018-06-23 22:22 | RADIOLOGY REPORT (SQ) ---
EXAM DESCRIPTION: HUMERUS LEFT COMPLETED DATE/TIME: 06/23/2018 10:14 pm REASON FOR STUDY: lue swelling, pain COMPARISON: None. NUMBER OF VIEWS: Two views. TECHNIQUE: Two radiographic images were acquired of the left humerus to include elbow and shoulder i n at least one projection. LIMITATIONS: None. FINDINGS: MINERALIZATION: Normal. BONES: No acute fracture or dislocation. No worrisome bone lesions. SOFT TISSUES: No obvious swelling or foreign body. OTHER: No other significant finding. IMPRESSION: NEGATIVE STUDY OF THE LEFT HUMERUS. NO RADIOGRAPHIC EVIDENCE OF ACUTE INJURY. TECHNICAL DOCUMENTATION: JOB ID: [id number] [employer]- All Rights Reserved Reading location - IP/workstation name: [email or web address]
--- NOTE | 2018-06-23 22:25 | RADIOLOGY REPORT (SQ) ---
EXAM DESCRIPTION: CHEST SINGLE VIEW COMPLETED DATE/TIME: 06/23/2018 10:14 pm REASON FOR STUDY: lue swelling, pain COMPARISON: 03/09/2018 and 06/21/2018 EXAM PARAMETERS: NUMBER OF VIEWS: One view. TECHNIQUE: Single frontal radiographic view of the chest acquired. RADIATION DOSE: NA LIMITATIONS: None. FINDINGS: LUNGS AND PLEURA: No opacities, masses or pneumothorax. No pleural effusion. MEDIASTINUM AND HILAR STRUCTURES: No masses. Contour normal. HEART AND VASCULAR STRUCTURES: Cardiomegaly without central vascular congestion. BONES: No acute findings. HARDWARE: Right upper extremity PICC and right cervical vascular access catheter without evidence of gross complication. OTHER: No other significant finding. IMPRESSION: Cardiomegaly without evidence of vascular congestion. Right upper extremity PICC and ri ght central vascular access catheter. TECHNICAL DOCUMENTATION: JOB ID: [id number] [employer]- All Rights Reserved Reading location - IP/workstation name: [email or web address]
[2018-06-23 22:26] LABS: ANION GAP 16 (5-19); BLOOD UREA NITROGEN 47 mg/dL (7-20); CALCIUM 8.6 mg/dL (8.4-10.2); CARBON DIOXIDE 25 mmol/L (22-30); CHLORIDE 100 mmol/L (98-107); GLUCOSE 134 mg/dL (75-110); POTASSIUM 4.7 mmol/L (3.6-5.0); SODIUM 140.5 mmol/L (137-145)
[2018-06-23] MEDS ORDERED: ENOXAPARIN SODIUM INJ 100 MG/1 ML DISP.SYRIN SUBCUT SCH (23:45)
[2018-06-24] MEDS ORDERED: OXYCODONE-ACETAMINOPHEN 5-325 MG TABLET PO ONE (00:14)
[2018-06-24] MEDS ORDERED: MORPHINE SULFATE SR 15 MG TABLET PO ONE (00:15)
--- NOTE | 2018-06-24 01:36 | RADIOLOGY REPORT (SQ) ---
EXAM DESCRIPTION: CT CHEST ANGIOGRAPHY WITHOUT THEN WITH IV CONTRAST COMPLETED DATE/TME: 06/23/2018 23:51 CLINICAL HISTORY: 62 years Male, Evaluate possible left subclavian occlusion Comparison: None. Technique: IV contrast. Coronal and sagittal reformat. 3d reconstruction. This exam was performed according to our departmental dose-optimization program, which includes automated exposure control, adjustment of the mA and/or kV according to patient size and/or use of iterative reconstruction technique.[facility]: Dose Right [facility]: CareDose [facility]: Dose Right [facility]: Teradose 4D [facility]: [employer] LIMITATIONS: Streak artifact. Findings: Indeterminate 1.4 cm lesion of the left kidney may indicate a hemorrhagic cyst. Differential diagnosis includes neoplasm. Recommend multiphase contrast CT or MRI of the kidneys. Splenomegaly index of 865. No pulmonary embolus. No right ventricular strain. Left subclavian artery appears patent, as queried. Moderate coronary artery calcification, calcification/prosthesis associated with the aortic valve, right jugular central line tip at the mid right atrium; consider 5.4 cm retraction of the right jugular central line. Mild scattered interstitial markings, atelectasis, or scar. Mild bilateral perinephric fat stranding. 3.6 cm ectatic diameter of the ascending thoracic aorta. Inferior neck, axillae, mediastinum, airway, lymphatics, heart, vasculature, upper abdomen, and musculoskeleton appear unremarkable. Impression: 1. Indeterminate 1.4 cm lesion of the left kidney may indicate a hemorrhagic cyst. Differential diagnosis includes neoplasm. Recommend multiphase contrast CT or MRI of the kidneys. 2. Splenomegaly index of 865. 3. No pulmonary embolus. No right ventricular strain. 4. Left subclavian artery appears patent, as queried.
[2018-06-24 02:55] VITALS: BP 101/74
--- NOTE | 2018-06-24 08:42 | RADIOLOGY REPORT (SQ) ---
EXAM DESCRIPTION: VENOUS UNILATERAL UPPER COMPLETED DATE/TIME: 06/23/2018 11:28 pm REASON FOR STUDY: Blue swelling COMPARISON: None. TECHNIQUE: Dynamic and static campbell scale and color images acquired of the left arm venous system. Se lected spectral images acquired with additional compression and augmentation maneuvers. The contralat eral subclavian vein and internal jugular vein were also imaged. Images stored on PACS. LIMITATIONS: None. FINDINGS: INTERNAL JUGULAR VEIN: Normal phasicity and compression. No visualized echogenic material on campbell scale. No defects on color images. Comparison opposite side normal. SUBCLAVIAN VEIN: Normal compression. No visualized echogenic material on campbell scale. No defects on co mary images. AXILLARY VEIN: Normal compression, augmentation. No visualized echogenic material on campbell scale. No d efects on color images. BRACHIAL VEIN: Normal compression. No visualized echogenic material on campbell scale. No defects on colo r images. BASILIC VEIN: Normal compression. No visualized echogenic material on campbell scale. No defects on color images. CEPHALIC VEIN: Normal compression. No visualized echogenic material on campbell scale. No defects on colo r images. RADIAL VEIN: Normal compression. No visualized echogenic material on cambpell scale. No defects on color images. OTHER: Ulnar venous system not identified. No other significant finding. CONTRALATERAL SUBCLAVIAN VEIN AND INTERNAL JUGULAR VEIN: Not assessed. IMPRESSION: NO EVIDENCE DVT OR SVT LEFT ARM. TECHNICAL DOCUMENTATION: JOB ID: [id number]- All Rights Reserved Reading location - IP/workstation name: [email or web address]
== END 2018-06-24 02:29 | disposition home or self-care (01) ==
LOC: ER 21:06
DX: R60.0 Localized edema (principal); I12.0 Hypertensive chronic kidney disease with stage 5 chronic kidney disease or end stage renal disease; E11.22 Type 2 diabetes mellitus with diabetic chronic kidney disease; N18.6 End stage renal disease; Z99.2 Dependence on renal dialysis; I48.91 Unspecified atrial fibrillation; Z79.01 Long term (current) use of anticoagulants; E11.51 Type 2 diabetes mellitus with diabetic peripheral angiopathy without gangrene; I69.354 Hemiplegia and hemiparesis following cerebral infarction affecting left non-dominant side; G89.29 Other chronic pain; F11.20 Opioid dependence, uncomplicated; Z98.890 Other specified postprocedural states
CPT/HCPCS: 99285; 96372; 36415; 85025; 85610; 80048; 93971; 71045; 73060; 71275; J3490; J1650

== ENCOUNTER 2018-06-30 11:23 | Emergency (ER) | payer MEDICARE, OTHER ==
[2018-06-30] MEDS ORDERED: ONDANSETRON HCL INJ/PF 4 MG/2 ML SDV ONE (11:34)
--- NOTE | 2018-06-30 11:49 | ER Document Report ---
ED General - General Stated Complaint: SPITTING UP BLOOD Time Seen by Provider: 06/30/18 11:28 Mode of Arrival: Medic Information source: Patient, Relative, [facility] Records, Outside Facility Records Notes: 62-year-old male with type 2 diabetes, atrial fibrillation, coronary artery disease, end-stage renal disease on dialysis, COPD, remote history of multiple myeloma which is now in remission presents from [facility] via EMS with hemoptysis. Per the she went to visit the patient this morning and noticed blood dripping out of his mouth. Patient currently only complaining of a headache. He denies any shortness of breath, difficulty swallowing, chest pain, abdominal pain. Patient is on Coumadin for atrial fibrillation. His states that he was subtherapeutic the last time he was seen in the emergency room (last week)and was started on Lovenox which was completed yesterday. Patient recently discharged from [facility]. TRAVEL OUTSIDE OF THE [place] IN LAST 30 DAYS: No - HPI Onset: This morning Onset/Duration: Sudden, Worse Quality of pain: Achy Severity: Moderate - Bleeding after coughing Pain Level: 1 Associated symptoms: Headache. denies: Chest pain, Nonproductive cough, Shortness of breath Exacerbated by: Denies, Standing Similar symptoms previously: No Recently seen / treated by doctor: Yes - 06/24/18 recent admission to [facility] - Related Data Allergies/Adverse Reactions: Sulfa (Sulfonamide Antibiotics) Adverse Reaction (Verified 06/20/18 08:47) Vomiting sulfamethoxazole [From Bactrim] Adverse Reaction (Verified 06/20/18 08:47) Vomiting trimethoprim [From Bactrim] Adverse Reaction (Verified 06/20/18 08:47) Vomiting Past Medical History - General Information source: Patient, Relative, [facility] Records, Outside Facility Records - Social History Smoking Status: Former Smoker Frequency of alcohol use: None Drug Abuse: None Lives with: Care Home Family History: Reviewed & Not Pertinent Patient has suicidal ideation: No Patient has homicidal ideation: No - Past Medical History Cardiac Medical History: Reports: Hx Atrial Fibrillation Endocrine Medical History: Reports: Hx Diabetes Mellitus Type 2 Renal/ Medical History: Denies: Hx Peritoneal Dialysis - pt may start but hasnt decided Past Surgical History: Reports: Hx Appendectomy, Hx Orthopedic Surgery - bilateral, Hx Tonsillectomy Review of Systems - Review of Systems Notes: REVIEW OF SYSTEMS: CONSTITUTIONAL : Denies fever, chills, or sweats. Denies recent illness. Denies weight loss, recent hospitalizations. EENT: Denies visual changes, eye pain. Denies nasal or sinus congestion or discharge. Denies sore throat, oral lesions, difficulty swallowing. CARDIOVASCULAR: Denies chest pain. Denies palpitations. Denies lower extremity edema. RESPIRATORY: Denies cough, cold, or chest congestion. Denies shortness of breath, wheezing. GASTROINTESTINAL: Denies abdominal pain or distention. Denies nausea, vomiting , or diarrhea. Denies blood in vomitus, stools, or per rectum. Denies black, tarry stools. Denies constipation. GENITOURINARY: Denies difficulty urinating, painful urination, frequency, blood in urine, MUSCULOSKELETAL: Denies back or neck pain or stiffness. Denies joint pain or swelling. SKIN: Denies rash, lesions or sores. HEMATOLOGIC : Denies easy bruising or bleeding. LYMPHATIC: Denies swollen glands. NEUROLOGICAL: Denies confusion or altered mental status. Denies passing out or loss of consciousness. Denies dizziness or lightheadedness. Denies weakness or paralysis. Denies problems difficulty with ambulation, slurred speech. Denies sensory loss, numbness, or tingling. Denies seizures. PSYCHIATRIC: Denies anxiety or stress. Denies depression, suicidal ideation, or homicidal ideation. Denies visual or auditory hallucinations. Physical Exam - Vital signs Vitals: Resp 15 06/30/18 11:26 - Notes Notes: PHYSICAL EXAMINATION: GENERAL: Ill-appearing, actively coughing up large amounts of blood blood. HEAD: Atraumatic, normocephalic. EYES: Pupils equal round and reactive to light, extraocular movements intact, sclera anicteric, conjunctiva are normal. ENT: Blood in mouth and posterior pharynx. Airway patent after mild suctioning. NECK: Normal range of motion, supple without lymphadenopathy LUNGS: Diminished breath sounds in the right and left lower lung field no wheezes rales or rhonchi. HEART: Tachycardic, irregular rhythm. Port and right upper chest without associated erythema. ABDOMEN: Soft, nontender, nondistended abdomen. No guarding, no rebound. No masses appreciated. Musculoskeletal: Lower extremity with skin discoloration, feet it Booties secondary to extensive wound wounds. Left upper extremity fistula with strong bruit. PICC line and right upper extremity. NEUROLOGICAL: Cranial nerves grossly intact. Normal sensory, motor exams PSYCH: Normal mood, normal affect. SKIN: Warm, Dry, normal turgor, no rashes or lesions noted. Course - Re-evaluation Re-evalutation: Laboratory 06/30/18 06/30/18 06/30/18 11:44 11:44 11:44 WBC 11.4 H RBC 3.52 L Hgb 8.9 L Hct 27.5 L MCV 78 L MCH 25.2 L MCHC 32.2 RDW 21.8 H Plt Count 223 Seg Neutrophils % 82.5 H Lymphocytes % 12.3 L Monocytes % 4.2 Eosinophils % 0.5 Basophils % 0.5 Absolute Neutrophils 9.4 H Absolute Lymphocytes 1.4 Absolute Monocytes 0.5 Absolute Eosinophils 0.1 Absolute Basophils 0.1 PT 22.0 H INR 1.82 APTT 69.5 H Sodium 143.2 Potassium 3.9 Chloride 103 Carbon Dioxide 26 Anion Gap 14 BUN 37 H Creatinine 5.80 H Est GFR ( Amer) 12 L Est GFR (Non-Af Amer) 10 L Glucose 138 H Calcium 8.4 Total Bilirubin 0.3 Direct Bilirubin 0.3 Neonat Total Bilirubin Not Reportable Neonat Direct Bilirubin Not Reportable Neonat Indirect Bili Not Reportable AST 22 ALT 38 Alkaline Phosphatase 90 Creatine Kinase 25 L CK-MB (CK-2) Troponin I Total Protein 5.7 L Albumin 3.0 L 06/30/18 11:44 WBC RBC Hgb Hct MCV MCH MCHC RDW Plt Count Seg Neutrophils % Lymphocytes % Monocytes % Eosinophils % Basophils % Absolute Neutrophils Absolute Lymphocytes Absolute Monocytes Absolute Eosinophils Absolute Basophils PT INR APTT Sodium Potassium Chloride Carbon Dioxide Anion Gap BUN Creatinine Est GFR ( Amer) Est GFR (Non-Af Amer) Glucose Calcium Total Bilirubin Direct Bilirubin Neonat Total Bilirubin Neonat Direct Bilirubin Neonat Indirect Bili AST ALT Alkaline Phosphatase Creatine Kinase CK-MB (CK-2) 1.42 Troponin I 0.063 Total Protein Albumin Chest X-Ray 06/30/18 11:38 IMPRESSION: HEART ENLARGED WITHOUT FAILURE. NO OTHER SIGNIFICANT RADIOGRAPHIC FINDING IN THE CHEST. 06/30/18 12:29 [address] speak [address] Russo concrete floor installer who is willing to consult on the patient. requesting transfer to [facility]. 06/30/18 12:39 [facility] contacted for transfer but I was informed that the marketing teacher does not do bronchoscopies and cannot accept the patient at this time. 06/30/18 12:44 Patient refused by hospitalist at [facility]. Hospitalist is concerned patient will need to dialysis. 06/30/18 12:46 [facility] now contacted for transfer. 06/30/18 12:[address] Jesse Vázquez at [facility] 06/30/18 12:57 Patient reevaluated and is resting comfortably. He denies any chest pain, further hemoptysis. 06/30/18 [id number] male with type 2 diabetes, atrial fibrillation, coronary artery disease, end-stage renal disease on dialysis, COPD, remote history of multiple myeloma which is now in remission presents from [facility] with hemoptysis. Upon arrival patient is hypotensive, tachycardic. Blood pressure has improved with a 500 cc fluid bolus. Heart rate improved from 137-115 without intervention. Hemoptysis has stopped since receiving vitamin K and TXA. CBC does show a hemoglobin of 8 point which is the patient's baseline after reviewing previous labs. Surprisingly patient's INR is still considered therapeutic. Patient does have a mildly elevated troponin without chest pain, ST elevation on EKG. Patient was not administered aspirin or heparin because of incoming complaint of large volume hemoptysis. 06/30/18 16:47 Reevaluated multiple times. He is now resting comfortably. He has had no further hemoptysis. His last blood pressure reading was 87/70 with the patient sleeping soundly. He was easily aroused. An additional 250 cc of normal saline will be administered. Patient was accepted to [facility] by Dr. Jesse Vázquez. 06/30/18 12:57 Patient reevaluated and is resting comfortably. He denies any chest pain, further hemoptysis. Patient transferred in stable condition. 06/30/18 23:07 - Vital Signs Vital signs: Temp Pulse Resp BP Pulse Ox 98 F 17 84/34 L 98 06/30/18 17:00 06/30/18 17:01 06/30/18 17:01 06/30/18 17:01 - Laboratory Result Diagrams: 06/30/18 11:44 06/30/18 11:44 Laboratory results interpreted by me: 08/25/18 08/25/18 08/25/18 11:44 11:44 11:44 WBC 11.4 H RBC 3.52 L Hgb 8.9 L Hct 27.5 L MCV 78 L MCH 25.2 L RDW 21.8 H Seg Neutrophils % 82.5 H Lymphocytes % 12.3 L Absolute Neutrophils 9.4 H PT 22.0 H APTT 69.5 H BUN 37 H Creatinine 5.80 H Est GFR ( Amer) 12 L Est GFR (Non-Af Amer) 10 L Glucose 138 H Creatine Kinase 25 L Total Protein 5.7 L Albumin 3.0 L - Diagnostic Test Radiology reviewed: Image reviewed, Reports reviewed - EKG Interpretation by Me Rate: Tachycardia Rhythm: A.Flutter, PVC's When compared to previous EKG there are: Changes noted Critical Care Note - Critical Care Note Total time excluding time spent on procedures (mins): 40 - minutes of critical care time spent in direct contact evaluating and reevaluating the patient, treating symptoms, reviewing labs and studies and speaking with family and consultants excluding any procedures Discharge - Discharge Clinical Impression: Hemoptysis, End stage renal disease, Subtherapeutic anticoagulation Atrial fibrillation Qualifiers: Atrial fibrillation type: chronic Qualified Code(s): I48.2 - Chronic atrial fibrillation Hypotension Qualifiers: Hypotension type: unspecified hypotension type Qualified Code(s): I95.9 - Hypotension, unspecified Headache Qualifiers: Headache type: unspecified Headache chronicity pattern: unspecified pattern Intractability: not intractable Qualified Code(s): R51 - Headache Condition: Fair Disposition: [facility] Referrals: ANNIE GALICIA DO [Primary Care Provider] - Follow up as needed
[2018-06-30] MEDS ORDERED: PHYTONADIONE INJ 1 MG/0.5 ML DISP.SYRIN INJ ONE (11:54)
[2018-06-30 11:58] LABS: ABSOLUTE BASOPHILS # (AUTO) 0.1 10^3/uL (0.0-0.2); ABSOLUTE EOSINOPHILS # (AUTO) 0.1 10^3/uL (0.0-0.6); ABSOLUTE LYMPHOCYTES (AUTO) 1.4 10^3/uL (0.5-4.7); ABSOLUTE MONOCYTES (AUTO) 0.5 10^3/uL (0.1-1.4); ABSOLUTE NEUT (AUTO) 9.4 10^3/uL (1.7-8.2); BASOPHILS % (AUTO) 0.5 % (0-2); EOSINOPHILS % (AUTO) 0.5 % (0-6); HEMATOCRIT 27.5 % (37.9-51.0); HEMOGLOBIN 8.9 g/dL (13.5-17.0); LYMPHOCYTES % (AUTO) 12.3 % (13-45); MEAN CORPUSCULAR HEMOGLOBIN 25.2 pg (27.0-33.4); MEAN CORPUSCULAR HGB CONC 32.2 g/dL (32.0-36.0); MEAN CORPUSCULAR VOLUME 78 fl (80-97); MONOCYTES % (AUTO) 4.2 % (3-13); PLATELET COUNT 223 10^3/uL (150-450); RED BLOOD COUNT 3.52 10^6/uL (4.35-5.55); RED CELL DISTRIBUTION WIDTH 21.8 % (11.5-14.0); SEGMENTED NEUTROPHILS % (AUTO) 82.5 % (42-78); TOTAL CELLS COUNTED % (AUTO) 100 %; WHITE BLOOD COUNT 11.4 10^3/uL (4.0-10.5)
[2018-06-30] MEDS ORDERED: TRANEXAMIC ACID INJ/PF 1,000 MG/10 ML SDV IV ONE (12:03)
[2018-06-30 12:04] LABS: INTERNATIONAL RATION (INR) 1.82
[2018-06-30 12:06] LABS: PARTIAL THROMBOPLASTIN TIME 69.5 SEC (23.5-35.8)
[2018-06-30] MEDS ORDERED: PHYTONADIONE INJ 10 MG/1 ML AMPULE SUBCUT ONE (12:08)
[2018-06-30] MEDS ORDERED: NORMAL SALINE 1000 ML 250 ML IV ONE ×2 (12:23→13:53)
[2018-06-30] MEDS ORDERED: ONDANSETRON HCL INJ/PF 4 MG/2 ML SDV IV ONE (12:23)
[2018-06-30 12:30] LABS: ALANINE AMINOTRANSFERASE 38 U/L (21-72); ALKALINE PHOSPHATASE 90 U/L (38-126); ANION GAP 14 (5-19); ASPARTATE AMINO TRANSFERASE 22 U/L (17-59); BILIRUBIN,DIRECT 0.3 mg/dL (0.0-0.4); BILIRUBIN,TOTAL 0.3 mg/dL (0.2-1.3); BLOOD UREA NITROGEN 37 mg/dL (7-20); CALCIUM 8.4 mg/dL (8.4-10.2); CARBON DIOXIDE 26 mmol/L (22-30); CHLORIDE 103 mmol/L (98-107); CREATINE KINASE 25 U/L (55-170); GLUCOSE 138 mg/dL (75-110); POTASSIUM 3.9 mmol/L (3.6-5.0); SODIUM 143.2 mmol/L (137-145); TOTAL PROTEIN 5.7 g/dL (6.3-8.2)
[2018-06-30 12:34] LABS: CREATINE KINASE MB 1.42 ng/mL (<4.55)
--- NOTE | 2018-06-30 12:37 | RADIOLOGY REPORT (SQ) ---
EXAM DESCRIPTION: CHEST SINGLE VIEW COMPLETED DATE/TIME: 06/30/2018 12:11 pm REASON FOR STUDY: Hemoptysis COMPARISON: 06/23/2018. NUMBER OF VIEWS: One view. TECHNIQUE: Single frontal radiographic view of the chest acquired. LIMITATIONS: None. FINDINGS: LUNGS AND PLEURA: No opacities, masses or pneumothorax. No pleural effusion. MEDIASTINUM AND HILAR STRUCTURES: No masses. Contour normal. HEART AND VASCULAR STRUCTURES: Heart enlarged without failure. Normal vasculature. BONES: No acute findings. HARDWARE: Stable multi lumen catheter. OTHER: No other significant finding. IMPRESSION: HEART ENLARGED WITHOUT FAILURE. NO OTHER SIGNIFICANT RADIOGRAPHIC FINDING IN THE CHEST. TECHNICAL DOCUMENTATION: JOB ID: [id number] [employer]- All Rights Reserved Reading location - IP/workstation name: [email or web address]
[2018-06-30 12:41] LABS: TROPONIN I 0.063 ng/mL
--- NOTE | 2018-06-30 13:27 | RADIOLOGY REPORT (SQ) ---
EXAM DESCRIPTION: CT CHEST WITHOUT COMPLETED DATE/TIME: 06/30/2018 1:01 pm REASON FOR STUDY: Hemoptysis COMPARISON: 06/24/2018. TECHNIQUE: CT scan performed of the chest without intravenous contrast. Images reviewed with lung, soft tissue and bone windows. Reconstructed coronal and sagittal MPR images reviewed. All images st ored on PACS. All CT scanners at this facility use dose modulation, iterative reconstruction, and/or weight based d osing when appropriate to reduce radiation dose to as low as reasonably achievable (ALARA). [facility]: Dose Right [facility]: CareDose [facility]: Dose Right [facility]: Teradose 4D [facility]: Smart [employer] RADIATION DOSE: CT Rad equipment meets quality standard of care and radiation dose reduction techniq ues were employed. CTDIvol: 21.8 mGy. DLP: 967 mGy-cm. mGy. LIMITATIONS: No technical limitations. FINDINGS: LUNGS AND PLEURA: Prominent interstitial markings particularly in the right lung and right lower lobe. No pleural effusion. HILAR AND MEDIASTINAL STRUCTURES: No identified masses or abnormal nodes. No obvious aneurysm. HEART AND VASCULAR STRUCTURES: No aneurysm. No pericardial effusion. UPPER ABDOMEN: No significant findings. Limited exam. THYROID AND OTHER SOFT TISSUES: No masses. No adenopathy. BONES: No significant finding. HARDWARE: Multi lumen catheter. OTHER: No other significant findings. IMPRESSION: PROMINENT INTERSTITIAL MARKINGS PARTICULARLY IN THE RIGHT LUNG PROBABLY DUE TO CHRONIC S CARRING ALTHOUGH CANNOT EXCLUDE DEVELOPING INFILTRATE, PARTICULARLY IN THE RIGHT LOWER LOBE. TECHNICAL DOCUMENTATION: JOB ID: [id number] Quality ID # [id number]: Final reports with documentation of one or more dose reduction techniques (e.g., Au tomated exposure control, adjustment of the mA and/or kV according to patient size, use of iterative reconstruction technique) 2010 [employer]- All Rights Reserved Reading location - IP/workstation name: [email or web address]
[2018-06-30] MEDS ORDERED: FENTANYL CITRATE INJ/PF 100 MCG/2 ML AMPUL IV ONE (13:40)
[2018-06-30] MEDS ORDERED: NORMAL SALINE 250 ML IV ONE (16:46)
[2018-06-30 17:15] VITALS: BP 84/34
--- NOTE | 2018-06-30 20:44 | EKG REPORT ---
SEVERITY:- ABNORMAL ECG - ATRIAL FIB FLUTTER, A-RATE 306 MULTIFORM VENTRICULAR PREMATURE COMPLEXES NONSPECIFIC INTRAVENTRICULAR CONDUCTION DELAY ST DEPRESSION, CONSIDER ISCHEMIA, ANT-LAT LDS : Confirmed by: Rosalind Hilliard 30-Jun-2018 20:44:23
--- NOTE | 2018-06-30 20:46 | EKG REPORT ---
SEVERITY:- ABNORMAL ECG - ATRIALFIB FLUTTER, A-RATE 312 MULTIPLE VENTRICULAR PREMATURE COMPLEXES NONSPECIFIC INTRAVENTRICULAR CONDUCTION DELAY ST DEPRESSION, CONSIDER ISCHEMIA, ANT-LAT LDS : Confirmed by: Rosalind Hilliard 30-Jun-2018 20:45:03
== END 2018-06-30 17:15 | disposition short-term general hospital (02) ==
LOC: ER 11:23
DX: R04.2 Hemoptysis (principal); R51 Headache; I95.9 Hypotension, unspecified; I48.2 Chronic atrial fibrillation; R79.1 Abnormal coagulation profile; C90.01 Multiple myeloma in remission; I25.10 Atherosclerotic heart disease of native coronary artery without angina pectoris; E11.22 Type 2 diabetes mellitus with diabetic chronic kidney disease; I12.0 Hypertensive chronic kidney disease with stage 5 chronic kidney disease or end stage renal disease; N18.6 End stage renal disease; Z99.2 Dependence on renal dialysis; Z88.2 Allergy status to sulfonamides; Z88.3 Allergy status to other anti-infective agents; Z87.891 Personal history of nicotine dependence
CPT/HCPCS: 93005; 99291; 96361; 96374; 96375; 86900; 86901; 36415; 82553; 86850; 82550; 85025; 85610; 85730; 80053; 84484; 71045; 71250; 93010; J3010; J3430; J2405; J7030; J7050; J3490

== ENCOUNTER 2018-07-23 14:01 | Emergency (ER) | payer OTHER, BC, MEDICARE ==
[2018-07-23] MEDS ORDERED: NORMAL SALINE 250 ML IV ONE ×2 (14:23→15:28)
--- NOTE | 2018-07-23 14:30 | ER Document Report ---
ED General - General Chief Complaint: Altered Mental Status Stated Complaint: ALTERED MENTAL STATUS Time Seen by Provider: 07/23/18 14:14 Mode of Arrival: Stretcher Information source: Emergency Med Personnel Notes: Patient was having a dialysis this afternoon when during the dialysis then noticed that he is increasingly altered. As a baseline history of dementia and lives in the correction. He does not communicate or follow verbal commands. History was not possible to obtain because patient does not communicate. TRAVEL OUTSIDE OF THE [place] IN LAST 30 DAYS: No - HPI Onset: Just prior to arrival Onset/Duration: Sudden Quality of pain: No pain Severity: None Associated symptoms: None - Related Data Allergies/Adverse Reactions: Sulfa (Sulfonamide Antibiotics) Adverse Reaction (Verified 07/23/18 14:39) Vomiting sulfamethoxazole [From Bactrim] Adverse Reaction (Verified 07/23/18 14:39) Vomiting trimethoprim [From Bactrim] Adverse Reaction (Verified 07/23/18 14:39) Vomiting Past Medical History - Social History Smoking Status: Unknown if Ever Smoked Family History: Reviewed & Not Pertinent - Past Medical History Cardiac Medical History: Reports: Hx Atrial Fibrillation Pulmonary Medical History: Reports: Hx Asthma, Hx COPD Endocrine Medical History: Reports: Hx Diabetes Mellitus Type 2 Renal/ Medical History: Denies: Hx Peritoneal Dialysis - pt may start but hasnt decided Past Surgical History: Reports: Hx Appendectomy, Hx Orthopedic Surgery - bilateral, Hx Tonsillectomy Review of Systems - Review of Systems -: Yes ROS unobtainable due to patient's medical condition - Patient does not communicate and does not follow commands. Physical Exam - Vital signs Vitals: Pulse Ox 96 07/23/18 14:05 - General General appearance: Appears well, Alert In distress: None - HEENT Head: Normocephalic, Atraumatic Eyes: Normal Pupils: PERRL - Respiratory Respiratory status: No respiratory distress Chest status: Nontender Breath sounds: Normal Chest palpation: Normal - Cardiovascular Rhythm: Regular, Tachycardia Heart sounds: Normal auscultation Murmur: No - Abdominal Inspection: Normal Distension: No distension Bowel sounds: Normal Tenderness: Nontender Organomegaly: No organomegaly - Back Back: Normal, Nontender, Other - Stage II sacral decubitus ulcer. - Extremities General upper extremity: Normal inspection, Nontender, Normal color, Normal ROM , Normal temperature General lower extremity: Nontender, Normal color, Normal ROM, Normal temperature , Normal weight bearing, Other - Left heel gangrene.. No: Sal's sign - Neurological Cognition: Other - Patient is nonverbal. Does not follow commands. 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 - Psychological Associated symptoms: Uncooperative - Skin Skin Temperature: Warm Skin Moisture: Dry Skin Color: Other - Dusky looking right lower leg which appears to be at his baseline by the design manager. Skin Turgor: Loose Course - Re-evaluation Re-evalutation: 07/23/18 17:27 I consulted the ICU doctor environmental permitting specialist at [facility] and spoke with Dr. Dominguez. He accepted patient for transfer to [facility] for further evaluation and management. This transfer is necessary for higher level of care because we do not have dialysis and Gastroenterology coverage at [facility] today. - Vital Signs Vital signs: Temp Pulse Resp BP Pulse Ox 99.0 F 102 H 18 125/71 97 07/23/18 14:49 07/23/18 18:31 07/23/18 18:31 07/23/18 18:34 07/23/18 18:31 - Laboratory Result Diagrams: 07/23/18 16:00 07/23/18 14:12 Laboratory results interpreted by me: 07/23/18 07/23/18 07/23/18 14:12 14:12 14:12 RBC Hgb Hct MCH RDW PT 25.6 H APTT 47.9 H Potassium 5.3 H Carbon Dioxide 21 L Anion Gap 20 H BUN 76 H Creatinine 8.90 H Est GFR ( Amer) 7 L Est GFR (Non-Af Amer) 6 L Glucose 125 H Lactic Acid Direct Bilirubin 0.6 H Creatine Kinase 216 H CK-MB (CK-2) 4.62 H NT-Pro-B Natriuret Pep 85644 H Urine Protein Urine Bilirubin 07/23/18 07/23/18 07/23/18 14:12 15:49 16:00 RBC 3.78 L Hgb 10.0 L Hct 31.1 L MCH 26.5 L RDW 20.8 H PT APTT Potassium Carbon Dioxide Anion Gap BUN Creatinine Est GFR ( Amer) Est GFR (Non-Af Amer) Glucose Lactic Acid 3.1 H Direct Bilirubin Creatine Kinase CK-MB (CK-2) NT-Pro-B Natriuret Pep Urine Protein 30 H Urine Bilirubin MODERATE H - Diagnostic Test Radiology reviewed: Image reviewed, Reports reviewed - EKG Interpretation by Me Rate: Tachycardia - 109 Rhythm: A.Flutter, with a 2:1 Block When compared to previous EKG there are: No significant change Additional EKG results interpreted by me: 07/23/18 14:37 No STEMI. - Transfer of Care Notes: 07/23/18 14:33 Altered mental status. Hypotension. Critical Care Note - Critical Care Note Total time excluding time spent on procedures (mins): 50 Comments: Plan was for multiple evaluations, consolidation, lab review and imaging review. Also time was spent with the explaining patient care. Discharge - Discharge Clinical Impression: Acute hyperkalemia, End-stage renal disease on hemodialysis, Metabolic acidosis Ulcer of left heel Qualifiers: Non-pressure ulcer stage: with necrosis of muscle Qualified Code(s): L97.423 - Non-pressure chronic ulcer of left heel and midfoot with necrosis of muscle GI (gastrointestinal bleed) Qualifiers: GI bleed type/associated pathology: unspecified gastrointestinal hemorrhage type Qualified Code(s): K92.2 - Gastrointestinal hemorrhage, unspecified Altered mental status Qualifiers: Altered mental status type: unspecified Qualified Code(s): R41.82 - Altered mental status, unspecified Sepsis Qualifiers: Sepsis type: sepsis due to unspecified organism Qualified Code(s): A41.9 - Sepsis, unspecified organism Condition: Fair Disposition: [facility] Referrals: ANNIE GALICIA DO [Primary Care Provider] - Follow up as needed
[2018-07-23 14:36] LABS: INTERNATIONAL RATION (INR) 2.21; PROTHROMBIN TIME 25.6 SEC (11.4-15.4)
[2018-07-23 14:37] LABS: PARTIAL THROMBOPLASTIN TIME 47.9 SEC (23.5-35.8)
[2018-07-23 14:52] LABS: ALANINE AMINOTRANSFERASE 24 U/L (21-72); ALBUMIN 3.9 g/dL (3.5-5.0); ALKALINE PHOSPHATASE 97 U/L (38-126); ASPARTATE AMINO TRANSFERASE 21 U/L (17-59); BILIRUBIN,DIRECT 0.6 mg/dL (0.0-0.4); BILIRUBIN,TOTAL 0.6 mg/dL (0.2-1.3); BLOOD UREA NITROGEN 76 mg/dL (7-20); CALCIUM 8.6 mg/dL (8.4-10.2); CARBON DIOXIDE 21 mmol/L (22-30); CHLORIDE 99 mmol/L (98-107); CREATINE KINASE 216 U/L (55-170); GLUCOSE 125 mg/dL (75-110); POTASSIUM 5.3 mmol/L (3.6-5.0)
[2018-07-23 14:57] LABS: SODIUM 140.4 mmol/L (137-145)
[2018-07-23 15:03] LABS: CREATINE KINASE MB 4.62 ng/mL (<4.55); TROPONIN I 0.023 ng/mL
[2018-07-23] MEDS ORDERED: VANCOMYCIN HCL INJ 1000 MG VIAL IV ONE (15:38)
[2018-07-23] MEDS ORDERED: PIPERACILLIN/TAZOBACTAM 3.375 GM VIAL IV ONE (15:39)
[2018-07-23] MEDS ORDERED: DOPAMINE HCL/DEXTROSE 5%-WATER 800 MG/250 ML RTUINJ IV PRN (15:39)
--- NOTE | 2018-07-23 15:39 | RADIOLOGY REPORT (SQ) ---
EXAM DESCRIPTION: CHEST SINGLE VIEW COMPLETED DATE/TIME: 07/23/2018 3:18 pm REASON FOR STUDY: AMS COMPARISON: 06/30/2018 NUMBER OF VIEWS: One view. TECHNIQUE: Single frontal radiographic view of the chest acquired. LIMITATIONS: None. FINDINGS: LUNGS AND PLEURA: No opacities, masses or pneumothorax. No pleural effusion. MEDIASTINUM AND HILAR STRUCTURES: No masses. Contour normal. HEART AND VASCULAR STRUCTURES: Heart enlarged without failure. Normal vasculature. BONES: No acute findings. HARDWARE: Venous access catheter tip right atrium. OTHER: No other significant finding. IMPRESSION: HEART ENLARGED WITHOUT FAILURE. NO OTHER SIGNIFICANT RADIOGRAPHIC FINDING IN THE CHEST. TECHNICAL DOCUMENTATION: JOB ID: [id number] [employer]- All Rights Reserved Reading location - IP/workstation name: [email or web address]
--- NOTE | 2018-07-23 15:44 | RADIOLOGY REPORT (SQ) ---
EXAM DESCRIPTION: CT HEAD WITHOUT COMPLETED DATE/TIME: 07/23/2018 3:25 pm REASON FOR STUDY: AMS COMPARISON: 03/09/2018 TECHNIQUE: Axial images acquired through the brain without intravenous contrast. Images reviewed wi th bone, brain and subdural windows. Additional sagittal and coronal reconstructions were generated. Images stored on PACS. All CT scanners at this facility use dose modulation, iterative reconstruction, and/or weight based d osing when appropriate to reduce radiation dose to as low as reasonably achievable (ALARA). [facility]: Dose Right [facility]: CareDose [facility]: Dose Right [facility]: Teradose 4D [facility]: Smart [employer] RADIATION DOSE: CT Rad equipment meets quality standard of care and radiation dose reduction techniq ues were employed. CTDIvol: 53.2 mGy. DLP: 1017 mGy-cm. mGy. LIMITATIONS: None. FINDINGS: VENTRICLES: Normal size and contour. CEREBRUM: No masses. No hemorrhage. No midline shift. No evidence for acute infarction. Large medical aides teacher brianne right MCA distribution infarct. CEREBELLUM: No masses. No hemorrhage. No alteration of density. No evidence for acute infarction. EXTRAAXIAL SPACES: No fluid collections. No masses. ORBITS AND GLOBE: No intra- or extraconal masses. Normal contour of globe without masses. CALVARIUM: No fracture. PARANASAL SINUSES: No fluid or mucosal thickening. SOFT TISSUES: No mass or hematoma. OTHER: No other significant finding. IMPRESSION: Chronic right MCA distribution infarct. No acute findings. EVIDENCE OF ACUTE STROKE: NO. COMMENT: Quality ID # [id number]: Final reports with documentation of one or more dose reduction techniques (e.g., Automated exposure control, adjustment of the mA and/or kV according to patient size, use of iterative reconstruction technique) TECHNICAL DOCUMENTATION: JOB ID: [id number] [employer]- All Rights Reserved Reading location - IP/workstation name: [email or web address]
[2018-07-23 16:14] LABS: APPEARANCE,URINE CLEAR; COLOR,URINE AMBER
[2018-07-23 16:15] LABS: BILIRUBIN,URINE MODERATE (NEGATIVE); GLUCOSE, URINE NEGATIVE (NEGATIVE); KETONES,URINE NEGATIVE (NEGATIVE); LEUKOCYTE ESTERASE,URINE NEGATIVE (NEGATIVE); NITRITE,URINE NEGATIVE (NEGATIVE); PROTEIN,URINE 30 mg/dL (NEGATIVE); URINE SPECIFIC GRAVITY 1.021; UROBILINOGEN,URINE NEGATIVE mg/dL (<2.0)
[2018-07-23 16:42] LABS: ABSOLUTE EOSINOPHILS # (AUTO) 0.1 10^3/uL (0.0-0.6); ABSOLUTE LYMPHOCYTES (AUTO) 1.4 10^3/uL (0.5-4.7); ABSOLUTE MONOCYTES (AUTO) 0.6 10^3/uL (0.1-1.4); ABSOLUTE NEUT (AUTO) 6.5 10^3/uL (1.7-8.2); BASOPHILS % (AUTO) 0.6 % (0-2); EOSINOPHILS % (AUTO) 0.6 % (0-6); HEMATOCRIT 31.1 % (37.9-51.0); MEAN CORPUSCULAR HEMOGLOBIN 26.5 pg (27.0-33.4); MEAN CORPUSCULAR HGB CONC 32.2 g/dL (32.0-36.0); MONOCYTES % (AUTO) 7.2 % (3-13); PLATELET COUNT 239 10^3/uL (150-450); RED BLOOD COUNT 3.78 10^6/uL (4.35-5.55); RED CELL DISTRIBUTION WIDTH 20.8 % (11.5-14.0); SEGMENTED NEUTROPHILS % (AUTO) 75.6 % (42-78); TOTAL CELLS COUNTED % (AUTO) 100 %; WHITE BLOOD COUNT 8.5 10^3/uL (4.0-10.5)
[2018-07-23 16:43] LABS: MEAN CORPUSCULAR VOLUME 82 fl (80-97)
[2018-07-23 16:43] LABS: ANION GAP 20 (5-19)
[2018-07-23] MEDS ORDERED: SODIUM POLYSTYRENE SULFONATE 15 GM/60 ML PO ONE (17:31)
[2018-07-23] MEDS ORDERED: PANTOPRAZOLE SODIUM 40 MG VIAL IV ONE (17:36)
[2018-07-23 18:34] VITALS: BP 125/71
--- NOTE | 2018-07-24 15:21 | EKG REPORT ---
SEVERITY:- ABNORMAL ECG - A-FLUTTER W/ PREDOM 2:1 AV BLOCK, A-RATE 241 REPOL ABNRM SUGGESTS ISCHEMIA, DIFFUSE LEADS : Confirmed by: Allison Andres MD 24-Jul-2018 15:20:18
== END 2018-07-23 18:56 | disposition short-term general hospital (02) ==
LOC: ER 14:01
DX: A41.9 Sepsis, unspecified organism (principal); K92.2 Gastrointestinal hemorrhage, unspecified; E11.621 Type 2 diabetes mellitus with foot ulcer; L97.423 Non-pressure chronic ulcer of left heel and midfoot with necrosis of muscle; E11.52 Type 2 diabetes mellitus with diabetic peripheral angiopathy with gangrene; I96 Gangrene, not elsewhere classified; E11.22 Type 2 diabetes mellitus with diabetic chronic kidney disease; N18.6 End stage renal disease; Z99.2 Dependence on renal dialysis; I69.354 Hemiplegia and hemiparesis following cerebral infarction affecting left non-dominant side; E87.2 Acidosis; I48.92 Unspecified atrial flutter; L89.152 Pressure ulcer of sacral region, stage 2; E87.5 Hyperkalemia; F03.90 Unspecified dementia, unspecified severity, without behavioral disturbance, psychotic disturbance, mood disturbance, and anxiety; J44.9 Chronic obstructive pulmonary disease, unspecified; R00.0 Tachycardia, unspecified; I95.9 Hypotension, unspecified
CPT/HCPCS: 93005; 36415; 87040; 82553; 82550; 83735; 85025; 85610; 85730; 82272; 87077; 80053; 81001; 84484; 87186; 83605; 83880; 71045; 70450; 93010; S0164; J3370; J2543

== ENCOUNTER 2018-10-19 19:21 | Emergency (ER) | payer OTHER, MEDICARE ==
[2018-10-19] MEDS ORDERED: ONDANSETRON 4 MG TAB.RAPDIS PO ONE (19:35)
--- NOTE | 2018-10-19 20:20 | RADIOLOGY REPORT (SQ) ---
EXAM DESCRIPTION: KUB/ABDOMEN (SINGLE VIEW) COMPLETED DATE/TIME: 10/19/2018 8:06 pm REASON FOR STUDY: constipation COMPARISON: None. NUMBER OF VIEWS: One view. TECHNIQUE: Supine radiographic image of the abdomen acquired. LIMITATIONS: None. FINDINGS: BOWEL GAS PATTERN: Normal bowel gas pattern. No dilated loops. There are large stool ball s in the distal colon. No free air in the abdomen supine radiographs. CALCIFICATIONS: No suspicious calcifications. SOFT TISSUES: No gross mass or suggestion of organomegaly. HARDWARE: None in the abdomen. BONES: No acute fracture. No worrisome bone lesions. OTHER: No other significant finding. IMPRESSION: Nonobstructive pattern of bowel gas with gas and stool present to the rectum. There are large stool balls in the distal colon. No free air in the abdomen on supine radiographs. TECHNICAL DOCUMENTATION: JOB ID: [id number] [employer]- All Rights Reserved Reading location - IP/workstation name: [email or web address]
[2018-10-19] MEDS ORDERED: LIDOCAINE 2% URO-JET 5 ML KIT MM ONE (20:41)
[2018-10-19] MEDS ORDERED: MAGNESIUM CITRATE 296 ML BOTTLE PO ONE (20:53)
[2018-10-19] MEDS ORDERED: ONDANSETRON ODT 4 MG TAB (6 TAB/ER DISP) PO PRN (20:57)
--- NOTE | 2018-10-19 21:03 | ER Document Report ---
ED General - General Chief Complaint: Abdominal Pain Stated Complaint: ABDOMINAL PAIN Time Seen by Provider: 10/19/18 19:25 TRAVEL OUTSIDE OF THE [place] IN LAST 30 DAYS: No - HPI Patient complains to provider of: Constipation Notes: Patient coming in for evaluation of constipation. Patient has a history of end- stage renal disease was at dialysis diverted from returning to his half-way to the ER for evaluation of abdominal pain. Upon my evaluation patient was to be resting currently. States abdominal pain with nausea ongoing for approximately 1 week. Patient states he has a history of constipation. Patient also has a history of CVA with diabetes patient with a recent AKA of the left leg with a wound that is dressed to the right foot the right foot is in a boot. Patient also has a contracture of the left upper extremity due to the stroke. Patient states he is on chronic pain medication patient states he has had issues with constipation in the past with the stool being very hard. Later family is at bedside states that the patient does have hard balls of stool that have to remove sometimes from his rectum. Reviewed the patient's medication list does show the morphine and Vicodin also says that the patient is only on docusate for bowel prep. Otherwise patient denies any fevers chills denies any vomiting. - Related Data Allergies/Adverse Reactions: Sulfa (Sulfonamide Antibiotics) Adverse Reaction (Verified 07/23/18 14:39) Vomiting sulfamethoxazole [From Bactrim] Adverse Reaction (Verified 07/23/18 14:39) Vomiting trimethoprim [From Bactrim] Adverse Reaction (Verified 07/23/18 14:39) Vomiting Past Medical History - Social History Smoking Status: Unknown if Ever Smoked Chew tobacco use (# tins/day): No Frequency of alcohol use: None Drug Abuse: None Family History: Reviewed & Not Pertinent Patient has suicidal ideation: No Patient has homicidal ideation: No - Past Medical History Cardiac Medical History: Reports: Hx Atrial Fibrillation Pulmonary Medical History: Reports: Hx Asthma, Hx COPD Endocrine Medical History: Reports: Hx Diabetes Mellitus Type 2 Renal/ Medical History: Denies: Hx Peritoneal Dialysis Past Surgical History: Reports: Hx Appendectomy, Hx Orthopedic Surgery - bilateral, Hx Tonsillectomy Review of Systems - Review of Systems Constitutional: No symptoms reported EENT: No symptoms reported Cardiovascular: No symptoms reported Respiratory: No symptoms reported Gastrointestinal: Abdominal pain, Constipation Genitourinary: No symptoms reported Male Genitourinary: No symptoms reported Musculoskeletal: No symptoms reported Skin: No symptoms reported Hematologic/Lymphatic: No symptoms reported Neurological/Psychological: No symptoms reported -: Yes All other systems reviewed and negative Physical Exam - Vital signs Vitals: Temp Pulse Resp BP Pulse Ox 98.0 F 94 16 153/51 H 98 10/19/18 19:26 10/19/18 19:26 10/19/18 19:26 10/19/18 19:26 10/19/18 19:26 Interpretation: Normal - General General appearance: Appears well, Alert - HEENT Head: Normocephalic, Atraumatic Eyes: Normal Pupils: PERRL - Respiratory Respiratory status: No respiratory distress Chest status: Nontender Breath sounds: Normal Chest palpation: Normal Notes: Patient with a dialysis catheter of the right upper chest with no signs of infection patient with a PICC line to the left upper chest. No signs of infection - Cardiovascular Rhythm: Regular Heart sounds: Normal auscultation Murmur: No - Abdominal Inspection: Normal Distension: No distension Bowel sounds: Normal Tenderness: Nontender Organomegaly: No organomegaly - Rectal Notes: Patient with a dressed decubitus ulcer Prior to my rectal examination patient had a sizable hard stool on my rectal examination soft stool in the rectum - Back Back: Normal, Nontender - Extremities General upper extremity: Other - Patient with a contracture of the left upper extremity is normal for the patient. Patient does have the arm in the volar cock-up splint. Patient also has decreased range of motion of this left arm due to a stroke patient denies any changes right arm otherwise normal General lower extremity: Other - Patient with a left AKA with no signs of infection of the stone. Patient does have the right leg in the boot with wounds of the second third and fourth toes that are bandaged - Neurological Neuro grossly intact: Yes Cognition: Normal Orientation: AAOx4 Marianne Coma Scale Eye Opening: Spontaneous Marianne Coma Scale Verbal: Oriented Olden Coma Scale Motor: Obeys Commands Marianne Coma Scale Total: 15 Speech: Normal Sensory: Normal - Psychological Associated symptoms: Normal affect, Normal mood - Skin Skin Temperature: Warm Skin Moisture: Dry Skin Color: Normal Course - Re-evaluation Re-evalutation: 10/19/18 22:38 X-ray shows no signs of obstruction significant amount of stool throughout the colon patient was able to pass a large hard ball of stool prior to my rectal examination rectal examination reveals soft stool. Recommend we treat the patient with next citrate also recommended to the patient and since he is on chronic opioid therapy with the patient may benefit from a medications to treat. Induced constipation this was placed in the patient's discharge instructions. Otherwise no critical findings patient was discharged home - Vital Signs Vital signs: Temp Pulse Resp BP Pulse Ox 98.0 F 94 16 153/51 H 98 10/19/18 19:26 10/19/18 19:26 10/19/18 19:26 10/19/18 19:26 10/19/18 19:26 Discharge - Discharge Clinical Impression: Constipation Qualifiers: Constipation type: unspecified constipation type Qualified Code(s): K59.00 - Constipation, unspecified Instructions: Constipation ([facility]) Additional Instructions: Your x-ray today of your abdomen does not show any signs of obstruction but does show significant amount of stool within the colon. Because of the pain medication as you are currently on I do believe the constipation is directly related to these opioids. I would highly recommend for your acute treatment to drink the entire bottle of mag citrate. I recommend to continue a bowel prep or may look into taking medication specifically for opioid-induced constipation such as Movantik Relistor. The max citrate may cause some nausea I would recommend taking the Zofran as provided. Prescriptions: Ondansetron [Zofran Odt 4 mg Tablet] 1 - 2 tab PO Q4H PRN #30 tab.rapdis PRN Reason: For Nausea/Vomiting Referrals: ANNIE GALICIA DO [Primary Care Provider] - Follow up as needed
[2018-10-20 07:03] VITALS: BP 131/67
== END 2018-10-19 22:40 ==
LOC: ER 19:21
DX: K59.00 Constipation, unspecified (principal); E11.22 Type 2 diabetes mellitus with diabetic chronic kidney disease; N18.6 End stage renal disease; Z99.2 Dependence on renal dialysis; I48.91 Unspecified atrial fibrillation; J44.9 Chronic obstructive pulmonary disease, unspecified; Z89.612 Acquired absence of left leg above knee; Z88.3 Allergy status to other anti-infective agents; Z88.2 Allergy status to sulfonamides
CPT/HCPCS: 99284; 74018; J3490 ×2; S0119

== ENCOUNTER → 2018-10-21 | Outpatient (CLI) | payer MEDICARE, OTHER ==
--- NOTE | 2018-10-22 10:30 | RADIOLOGY REPORT (SQ) ---
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 TECHNIQUE: Blood glucose level was verified. Above dose of FDG was injected intravenously. 2-D seg mented attenuation correction images were obtained through the entire body. Noncontrast CT images we re obtained for attenuation correction and fusion with emission images. CT images were performed wit hout oral or intravenous contrast and are not sensitive for parenchymal lesions. A series of overlap ping emission PET images were obtained. Images reviewed and manipulated at independent work station by the radiologist. Images stored on PACS. LIMITATIONS: None. FINDINGS: HEAD AND NECK: On axial image 80, a 1.3 cm posterior triangle lymph node is present with S UV of 2.4, nonspecific. Old surgical clips are present in the left supraclavicular region axial imag e 88. CHEST: No abnormal increased uptake over the chest. ABDOMEN AND PELVIS: No areas of abnormal metabolic activity in the abdomen or pelvis. Expected physi ologic activity is present in the genitourinary system and bowel. LOWER EXTREMITIES: No areas of abnormal metabolic activity in the soft tissues of the lower extremiti es. Post left [id number] amputation BONES: Patient has a sacral midline decubitus ulcer. There is focal increased uptake in the bones at the sacrococcygeal joint with SUV of 6.4. No soft tissue abscess is identified. ADDITIONAL CT FINDINGS: Cardiomegaly, calcified coronary arteries and aortic valve. Old right MCA in farct. Right jugular venous dialysis catheter. Small bilateral pleural effusions with bibasilar ate lectasis. Sacral decubitus ulcer without soft tissue abscess. OTHER: Liver background activity 2.0 SUV. Blood pool background activity 1.5 SUV IMPRESSION: No metabolic activity worrisome for recurrent myeloma Sacral midline decubitus ulcer is present with increased uptake at the sacrum/coccyx at the sacrococc ygeal joint suggesting osteomyelitis Nonspecific 1.3 cm left posterior triangle lymph node with mild metabolic activity TECHNICAL DOCUMENTATION: JOB ID: [id number] [employer]- All Rights Reserved Reading location - IP/workstation name: [email or web address]
== END ==
LOC: RAD 18:54
PROVIDERS: ATTEND Family Medicine
DX: C43.4 Malignant melanoma of scalp and neck (principal); C90.00 Multiple myeloma not having achieved remission
CPT/HCPCS: 78816; A9552

== ENCOUNTER → 2018-11-26 | Outpatient (CLI) | payer MEDICARE, OTHER ==
--- NOTE | 2018-11-26 16:12 | RADIOLOGY REPORT (SQ) ---
EXAM DESCRIPTION: FOOT RIGHT COMPLETE COMPLETED DATE/TIME: 11/26/2018 2:59 pm REASON FOR STUDY: L97.512 : NON-PRESSURE CHRONIC ULCER OF OTHER PART OF FOOT L97.512 NON-PRS CHRONI C ULCER OTH PRT RIGHT FOOT W FAT LAYER COMPARISON: None. NUMBER OF VIEWS: Two views. TECHNIQUE: AP and lateral radiographic images acquired of the right foot. LIMITATIONS: None. FINDINGS: MINERALIZATION: Normal. BONES: No acute fracture or dislocation. No worrisome bone lesions. JOINTS: No effusions. SOFT TISSUES: No soft tissue swelling. No foreign body. OTHER: No other significant finding. IMPRESSION: There is no evidence of osteomyelitis. TECHNICAL DOCUMENTATION: JOB ID: [id number] [employer]- All Rights Reserved Reading location - IP/workstation name: [email or web address]
--- NOTE | 2018-11-26 16:14 | RADIOLOGY REPORT (SQ) ---
EXAM DESCRIPTION: L SPINE WHOLE COMPLETED DATE/TIME: 11/26/2018 2:59 pm REASON FOR STUDY: L89.154 : PRESSURE ULCER OF SACRAL REGION, STAGE 4 L97.512 NON-PRS CHRONIC ULCER OTH PRT RIGHT FOOT W FAT LAYER COMPARISON: None. NUMBER OF VIEWS: Two views TECHNIQUE: AP and lateral radiographic images acquired of the lumbar spine. LIMITATIONS: None. FINDINGS: MINERALIZATION: Normal. SEGMENTATION: Normal. ALIGNMENT: Dextroscoliosis. VERTEBRAE: Maintained height. No fracture or worrisome bone lesion. DISCS: Preserved height. No significant osteophytes or end plate irregularity. POSTERIOR ELEMENTS: Mild hypertrophic facet changes from L4-S1. HARDWARE: None in the spine. PARASPINAL SOFT TISSUES: Normal. PELVIS: Intact as visualized. No fractures or worrisome bone lesions. SI joints intact. OTHER: No other significant finding. IMPRESSION: Scoliosis. Facet arthropathy. TECHNICAL DOCUMENTATION: JOB ID: [id number] [employer]- All Rights Reserved Reading location - IP/workstation name: [email or web address]
--- NOTE | 2018-11-29 15:05 | XCELERA REPORT ---
[address] [address] Lower Extremity Arterial Evaluation Name: VERA SPEARS Age: 62 yrs Gender: Male : 1955 Patient Status: Outpatient Patient Location: Study Date: 11/26/2018 01:53 PM Procedure: A color flow and duplex scan of the lower extremity arteries was performed on the right with velocity and waveform anaylsis. Reason For Study: RLE ULCER Ordering Physician: GERONIMO DUMONT Performed By: Siva Valles Measurements and Calculations Right Left LEARNING OPERATIONS SPECIALIST PSV 103.1 cm/sec Prox PFA PSV -72.8 cm/sec Prox Pop A PSV 46.8 cm/sec Prox MEIR PSV 39.8 cm/sec Dist MEIR PSV -16.2 cm/sec Dist INSPECTOR MATERIALS AND PROCESSES PSV 32.6 cm/sec Derian Pedis PSV 22.4 cm/sec Right Side Arterial Evaluation Normal velocity and triphasic waveforms noted in the Common Femoral artery. . Biphasic with normal velocity in the Popliteal. Biphasic in the infrageniculate vessels. Normal velocity in the Posterior Tibial, retrograde, low normal in the Anterior Tibial artery. Ankle Brachial index not obtained due to inability to tolerate compression. Interpretation Summary Moderate hemodynamically significant lesions in the right lower extremity only, on duplex imaging, at rest. Suggests compromise at the Popliteal and Anterior Tibial arteries. : GERONIMO DUMONT > Lawrence Roberts
== END ==
LOC: SP 13:30
PROVIDERS: ATTEND Nurse Practitioner
DX: L89.154 Pressure ulcer of sacral region, stage 4 (principal); L97.512 Non-pressure chronic ulcer of other part of right foot with fat layer exposed; M41.86 Other forms of scoliosis, lumbar region
CPT/HCPCS: 72110; 93926

== ENCOUNTER 2018-11-30 09:34 | Inpatient (IN) | payer OTHER, MEDICARE ==
[2018-11-30] MEDS ORDERED: MAGNESIUM SULFATE/D5W 1 GM/100 ML RTUPB IV ONE ×2 (09:53→09:54)
[2018-11-30] MEDS ORDERED: IPRATROPIUM/ALBUTEROL 0.5-2.5 MG/3 ML AMPUL NEB ONE (09:53)
--- NOTE | 2018-11-30 10:00 | ER Document Report ---
ED General - General Stated Complaint: WEAKNESS Time Seen by Provider: 11/30/18 09:42 Primary Care Provider: GERONIMO DUMONT LAUNDRY WORKER [ALLIED HEALTH PROFESSIONAL] - Follow up as needed TRAVEL OUTSIDE OF THE [place] IN LAST 30 DAYS: No - HPI Notes: Patient is a 62-year-old male with a history of BKA left side, insulin-dependent diabetic, COPD/asthma, end-stage renal disease and on dialysis (Monday, , Monday), AMikal crowley CVA in March 2018, stage IV sacral ulcer and on wound VAC who presents the emergency department with complaining of dry nonproductive cough over the last 2 weeks with increased work of breathing and hypoxia. Hypoxia was found on the ambulance ride today to his vascular provider and was found to be in the mid 80s on room air. Patient states that he is not on oxygen during the day, but does have a CPAP machine at night. Pt did have a full session of dialysis yesterday. states that he has been able to eat and drink without difficulty. She does have a urinary catheter in place and they have not noticed any hematuria. He is having normal bowel movements. No other concerns or complaints at this time. states that he is chronically altered since the stroke, but is at baseline without acute changes in mentation/behavior. Denies any headache, fever, neck pain, changes in vision/speech/mentation/hearing, URI, sore throat, chest pain, palpitations, syncope, abdominal pain, nausea/vomiting/diarrhea, or rash. - Related Data Allergies/Adverse Reactions: Sulfa (Sulfonamide Antibiotics) Adverse Reaction (Verified 07/23/18 14:39) Vomiting sulfamethoxazole [From Bactrim] Adverse Reaction (Verified 07/23/18 14:39) Vomiting trimethoprim [From Bactrim] Adverse Reaction (Verified 07/23/18 14:39) Vomiting Past Medical History - Social History Smoking Status: Former Smoker Family History: Reviewed & Not Pertinent - Past Medical History Cardiac Medical History: Reports: Hx Atrial Fibrillation Pulmonary Medical History: Reports: Hx Asthma, Hx COPD Endocrine Medical History: Reports: Hx Diabetes Mellitus Type 2 Renal/ Medical History: Denies: Hx Peritoneal Dialysis Past Surgical History: Reports: Hx Appendectomy, Hx Orthopedic Surgery - bilateral, Hx Tonsillectomy Review of Systems - Review of Systems -: Yes All other systems reviewed and negative Physical Exam - Vital signs Vitals: Pulse Ox 94 11/30/18 09:52 - Notes Notes: PHYSICAL EXAMINATION: GENERAL: No acute distress. Appears deconditioned. HEAD: Atraumatic, normocephalic. EYES: Pupils equal round and reactive to light, extraocular movements intact, sclera anicteric, conjunctiva are normal. ENT: Nares patent and without discharge. oropharynx clear without exudates. No tonsilar hypertrophy or erythema. Moist mucous membranes. NECK: Normal range of motion, supple without lymphadenopathy LUNGS: diminished b/l. No obvious retractions at this time. On a non- rebreather and o2 is 100%. HEART: Regular rate and rhythm without murmurs, rubs, gallops. ABDOMEN: Soft, nontender, nondistended abdomen. No guarding, no rebound. No masses appreciated. Normal bowel sounds present. No CVA tenderness bilaterall y. Musculoskeletal: FROM to passive/active. Strength 5+/5. Left BKA. Extremities: No cyanosis, clubbing, or edema b/l. Peripheral pulses 2+. Capillary refill less than 3 seconds. NEUROLOGICAL: alert and oriented to person, place. cranial nerves grossly intact. PSYCH: Normal mood, normal affect. SKIN: Warm, Dry, normal turgor, no rashes or lesions noted. Wound vac in place. Course - Re-evaluation Re-evalutation: 11/30/18 11:[address] Whitley for consult. Reviewed case with Dr. Daly. Pt will be placed on Bipap. We will hold on any blood transfusion at this time as pt is fluid over-loaded which is most likely the cause of his hypoxemia. Pt will need to be dialyzed. Pt currently does not have any significant tachycardia, tachypnea, hypoxia, or hypotension. 11/30/18 12:[address] Whitley who will check on nursing staff, etc for dialysis and he will let me know. 11/30/18 12:38 Dr. Whitley can do dialysis today. I spoke with Dr. Nicholson who accepted pt for admit. Pt in agreement with plan. - Vital Signs Vital signs: Temp Pulse Resp BP Pulse Ox 94 11/30/18 09:52 - Laboratory Result Diagrams: 11/30/18 10:40 11/30/18 10:40 Laboratory results interpreted by me: 11/30/18 11/30/18 11/30/18 10:40 10:40 10:40 RBC 3.00 L Hgb 7.3 L Hct 22.5 L MCV 75 L MCH 24.4 L RDW 19.5 H PT VBG pH Potassium 3.3 L Creatinine 1.63 H Est GFR ( Amer) 52 L Est GFR (Non-Af Amer) 43 L AST 12 L ALT 14 L NT-Pro-B Natriuret Pep 98432 H Total Protein 5.7 L Albumin 3.3 L Urine Protein Urine Blood Ur Leukocyte Esterase 11/30/18 11/30/18 11/30/18 10:40 10:40 10:40 RBC Hgb Hct MCV MCH RDW PT 23.8 H VBG pH 7.46 H Potassium Creatinine Est GFR ( Amer) Est GFR (Non-Af Amer) AST ALT NT-Pro-B Natriuret Pep Total Protein Albumin Urine Protein 100 H Urine Blood LARGE H Ur Leukocyte Esterase TRACE H Discharge - Discharge Clinical Impression: Hypoxia Fluid overload Qualifiers: Hypervolemia type: unspecified Qualified Code(s): E87.70 - Fluid overload, unspecified Anemia Qualifiers: Anemia type: unspecified type Qualified Code(s): D64.9 - Anemia, unspecified Condition: Stable Disposition: ADMITTED INPATIENT Admitting Provider: Hospitalist - Dr. Nicholson Unit Admitted: IMCU Referrals: GERONIMO DUMONT LAUNDRY WORKER [ALLIED HEALTH PROFESSIONAL] - Follow up as needed
--- NOTE | 2018-11-30 10:33 | RADIOLOGY REPORT (SQ) ---
EXAM DESCRIPTION: CHEST SINGLE VIEW COMPLETED DATE/TIME: 11/30/2018 10:21 am REASON FOR STUDY: hypoxia COMPARISON: AP chest 07/23/2018 PET-CT 10/21/2018 CT chest 06/30/2018 EXAM PARAMETERS: NUMBER OF VIEWS: One view. TECHNIQUE: Single frontal radiographic view of the chest acquired. RADIATION DOSE: NA LIMITATIONS: None. FINDINGS: LUNGS AND PLEURA: Mild bilateral perihilar pulmonary edema. Pulmonary congestion with Ker sabina lines. Findings are worrisome for fluid overload or congestive failure. No dense consolidation worrisome for pneumonia. No pleural effusion or pneumothorax. MEDIASTINUM AND HILAR STRUCTURES: No masses. Contour normal. HEART AND VASCULAR STRUCTURES: Stable mild cardiomegaly BONES: No acute findings. HARDWARE: Right-sided central venous dialysis catheter tip in the right atrium. Left-sided triple-barb men catheter tip superior vena cava, no pneumothorax. OTHER: No other significant finding. IMPRESSION: Left-sided triple-lumen catheter tip superior vena cava, no pneumothorax. Mild perihilar alveolar infiltrates with Nancy lines from pulmonary edema or fluid overload. TECHNICAL DOCUMENTATION: JOB ID: [id number] [employer]- All Rights Reserved Reading location - IP/workstation name: [email or web address]
[2018-11-30 11:07] LABS: VENOUS BLOOD BASE EXCESS 7.2 mmol/L; VENOUS BLOOD HCO3 31.9 mmol/L (20-32); VENOUS BLOOD PCO2 46.4 mmHg (35-63); VENOUS BLOOD PH 7.46 (7.30-7.42)
[2018-11-30 11:12] LABS: AMORPHOUS SEDIMENT,URINE TRACE /HPF; APPEARANCE,URINE CLOUDY; BILIRUBIN,URINE NEGATIVE (NEGATIVE); CALCIUM OXALATE CRYSTALS,URINE MANY /HPF; COLOR,URINE YELLOW; GLUCOSE, URINE NEGATIVE (NEGATIVE); INTERNATIONAL RATION (INR) 2.01; KETONES,URINE NEGATIVE (NEGATIVE); LEUKOCYTE ESTERASE,URINE TRACE (NEGATIVE); NITRITE,URINE NEGATIVE (NEGATIVE); PROTEIN,URINE 100 mg/dL (NEGATIVE); PROTHROMBIN TIME 23.8 SEC (11.4-15.4); URINE SPECIFIC GRAVITY 1.009; UROBILINOGEN,URINE NEGATIVE mg/dL (<2.0)
[2018-11-30 11:17] LABS: ABSOLUTE BASOPHILS # (AUTO) 0.1 10^3/uL (0.0-0.2); ABSOLUTE EOSINOPHILS # (AUTO) 0.2 10^3/uL (0.0-0.6); ABSOLUTE LYMPHOCYTES (AUTO) 1.1 10^3/uL (0.5-4.7); ABSOLUTE MONOCYTES (AUTO) 0.3 10^3/uL (0.1-1.4); ABSOLUTE NEUT (AUTO) 4.1 10^3/uL (1.7-8.2); BASOPHILS % (AUTO) 1.1 % (0-2); EOSINOPHILS % (AUTO) 2.7 % (0-6); HEMATOCRIT 22.5 % (37.9-51.0); LYMPHOCYTES % (AUTO) 18.9 % (13-45); MEAN CORPUSCULAR HEMOGLOBIN 24.4 pg (27.0-33.4); MEAN CORPUSCULAR HGB CONC 32.5 g/dL (32.0-36.0); MEAN CORPUSCULAR VOLUME 75 fl (80-97); MONOCYTES % (AUTO) 5.6 % (3-13); PLATELET COUNT 178 10^3/uL (150-450); RED CELL DISTRIBUTION WIDTH 19.5 % (11.5-14.0); SEGMENTED NEUTROPHILS % (AUTO) 71.7 % (42-78); TOTAL CELLS COUNTED % (AUTO) 100 %; WHITE BLOOD COUNT 5.6 10^3/uL (4.0-10.5)
[2018-11-30 11:23] LABS: HEMOGLOBIN 7.3 g/dL (13.5-17.0)
[2018-11-30 11:25] LABS: ALANINE AMINOTRANSFERASE 14 U/L (21-72); ALBUMIN 3.3 g/dL (3.5-5.0); ALKALINE PHOSPHATASE 70 U/L (38-126); ANION GAP 8 (5-19); ASPARTATE AMINO TRANSFERASE 12 U/L (17-59); BILIRUBIN,DIRECT 0.3 mg/dL (0.0-0.4); BILIRUBIN,TOTAL 0.7 mg/dL (0.2-1.3); BLOOD UREA NITROGEN 17 mg/dL (7-20); CALCIUM 9.3 mg/dL (8.4-10.2); CARBON DIOXIDE 30 mmol/L (22-30); CHLORIDE 103 mmol/L (98-107); GLUCOSE 106 mg/dL (75-110); POTASSIUM 3.3 mmol/L (3.6-5.0); SODIUM 141.2 mmol/L (137-145); TOTAL PROTEIN 5.7 g/dL (6.3-8.2)
[2018-11-30 11:31] LABS: NT PRO BNP 33700 pg/mL (5-900)
[2018-11-30 11:33] LABS: TROPONIN I < 0.012 ng/mL
--- NOTE | 2018-11-30 13:20 | PDOC H&P ---
History of Present Illness Admission Date[facility]PCP[facility] History of Present Illness: VERA SPEARS is a 62 year old male past medical history of A. 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 Currently residing in [facility] since June 19, 2018. Today patient was scheduled to have his left upper extremity fistula removed by vascular surgeon while being transported patient was noted to be hypoxic. Saturating in 80s. His who is at the bedside and is the primary caregiver stating that patient had been complaining of dry nonproductive cough over the last 2 weeks with worse power shortness of breath Patient is stating that he has a very low appetite and has had significant weight loss since last year. Patient has a chronic indwelling Ramon catheter and it was replaced yesterday. As per she has noticed blood in the urine when changing the bag. He also has history of chronic anemia however never been transfused. He denies any hemoptysis, hematemesis, melena, hematochezia or bright blood per rectum. Denies any fever, chills, chest pain, nausea, abdominal pain, diarrhea, constipation or any urinary symptoms except for hematuria. Past Medical History Cardiac Medical History: Reports: Atrial Fibrillation Pulmonary Medical History: Reports: Asthma, Chronic Obstructive Pulmonary Disease (COPD) Endocrine Medical History: Reports: Diabetes Mellitus Type 2 Hematology: Reports: Anemia Past Surgical History Past Surgical History: Reports: Appendectomy, Orthopedic Surgery - bilateral, Tonsillectomy Social History Smoking Status: Former Smoker Family History Family History: Reviewed & Not Pertinent Parental Family History Reviewed: Yes Children Family History Reviewed: Yes Sibling(s) Family History Reviewed.: Yes Medication/Allergy Home Medications: Albuterol Sulfate [Proair HFA Inhalation Aerosol 8.5 gm MDI] 1 puff IH Q6 11/30/18 Ascorbic Acid [Vitamin C 500 mg Tablet] 500 mg PO DAILY 11/30/18 Aspirin [Ecotrin 81 mg EC Tablet] 81 mg PO DAILY 11/30/18 Atorvastatin Calcium [Lipitor 40 mg Tablet] 40 mg PO QHS 11/30/18 Calcitriol [Rocaltrol 0.25 mcg Capsule] 0.75 mcg PO DAILY 11/30/18 Cholecalciferol (Vitamin D3) [Vitamin D3 2000 unit Tablet] 2,000 unit PO DAILY 11/30/18 Cyclobenzaprine HCl [Flexeril 10 mg Tablet] 10 mg PO Q8HP PRN 11/30/18 Docusate Sodium [Colace 100 mg Capsule] 100 mg PO BID 11/30/18 Ferrous Sulfate [Feosol 325 mg Tablet] 325 mg PO DAILY 11/30/18 Fluoxetine HCl [Prozac 20 mg Capsule] 40 mg PO DAILY 11/30/18 Folic Acid/Vitamin B Comp W-C [Nephrocaps Softgel] 1 mg PO DAILY 11/30/18 Hydrocodone/Acetaminophen [[place] 5-325 mg Tablet] 1 tab PO Q6HP PRN 11/30/18 Levothyroxine Sodium [Synthroid 0.088 mg Tablet] 88 mcg PO Q6AM 11/30/18 Loratadine [Claritin 10 mg Tablet] 10 mg PO DAILY 11/30/18 Metoprolol Tartrate [Lopressor 25 mg Tablet] 12.5 mg PO Q12 11/30/18 Morphine Sulfate [Ms-Contin Sr 15 mg Tablet] 15 mg PO Q12 11/30/18 Na Phos,M-B/Na Phos,Di-Ba [Fleet Enema (Adult) 133 ml] 133 ml [place] ASDIR PRN 11/30/18 Ondansetron [Zofran Odt 4 mg Tablet] 4 mg PO Q8HP PRN 11/30/18 Pantoprazole Sodium [Protonix] 40 mg PO DAILY 11/30/18 Polyethylene Glycol 3350 [Miralax Powder 17 gm/Packet] 1 packet PO DAILY 11/30/18 Ropinirole HCl [Requip] 0.5 mg PO QHS 11/30/18 Sennosides [Senna] 8.6 mg PO BID 11/30/18 Sevelamer Carbonate [Renvela] 1,600 mg PO MEALS 11/30/18 Trazodone HCl [Desyrel 50 mg Tablet] 25 mg PO QHS 11/30/18 Vit B Comp No.3/Folic/C/Biotin [Steph-Lou Rx Tablet] 1 each PO DAILY 11/30/18 Warfarin Sodium [Coumadin 5 mg Tablet] 5 mg PO QHS 11/30/18 Allergies/Adverse Reactions: Sulfa (Sulfonamide Antibiotics) Adverse Reaction (Verified 07/23/18 14:39) Vomiting sulfamethoxazole [From Bactrim] Adverse Reaction (Verified 07/23/18 14:39) Vomiting trimethoprim [From Bactrim] Adverse Reaction (Verified 07/23/18 14:39) Vomiting Physical Exam Vital Signs: Temp Pulse Resp BP Pulse Ox 94 11/30/18 09:52 Intake & Output 11/29/18 11/30/18 12/01/18 06:59 06:59 06:59 Intake Total 100 Balance 100 Results Laboratory Results: 11/30/18 10:40 11/30/18 10:40 11/30/18 11/30/18 11/30/18 10:40 10:40 10:40 WBC 5.6 RBC 3.00 L Hgb 7.3 L Hct 22.5 L MCV 75 L MCH 24.4 L MCHC 32.5 RDW 19.5 H Plt Count 178 Seg Neutrophils % 71.7 Lymphocytes % 18.9 Monocytes % 5.6 Eosinophils % 2.7 Basophils % 1.1 Absolute Neutrophils 4.1 Absolute Lymphocytes 1.1 Absolute Monocytes 0.3 Absolute Eosinophils 0.2 Absolute Basophils 0.1 VBG pH VBG pCO2 VBG HCO3 VBG Base Excess Sodium 141.2 Potassium 3.3 L Chloride 103 Carbon Dioxide 30 Anion Gap 8 BUN 17 Creatinine 1.63 H Est GFR ( Amer) 52 L Est GFR (Non-Af Amer) 43 L Glucose 106 Calcium 9.3 Total Bilirubin 0.7 AST 12 L ALT 14 L Alkaline Phosphatase 70 Total Protein 5.7 L Albumin 3.3 L Urine Color YELLOW Urine Appearance CLOUDY Urine pH 8.0 Ur Specific [place] 1.009 Urine Protein 100 H Urine Glucose (UA) NEGATIVE Urine Ketones NEGATIVE Urine Blood LARGE H Urine Nitrite NEGATIVE Ur Leukocyte Esterase TRACE H Urine WBC (Auto) 27 Urine RBC (Auto) >182 11/30/18 10:40 WBC RBC Hgb Hct MCV MCH MCHC RDW Plt Count Seg Neutrophils % Lymphocytes % Monocytes % Eosinophils % Basophils % Absolute Neutrophils Absolute Lymphocytes Absolute Monocytes Absolute Eosinophils Absolute Basophils VBG pH 7.46 H VBG pCO2 46.4 VBG HCO3 31.9 VBG Base Excess 7.2 Sodium Potassium Chloride Carbon Dioxide Anion Gap BUN Creatinine Est GFR ( Amer) Est GFR (Non-Af Amer) Glucose Calcium Total Bilirubin AST ALT Alkaline Phosphatase Total Protein Albumin Urine Color Urine Appearance Urine pH Ur Specific [place] Urine Protein Urine Glucose (UA) Urine Ketones Urine Blood Urine Nitrite Ur Leukocyte Esterase Urine WBC (Auto) Urine RBC (Auto) 11/30/18 10:40 Troponin I < 0.012 NT-Pro-B Natriuret Pep 44401 H Impressions: Chest X-Ray 11/30/18 09:52 IMPRESSION: Left-sided triple-lumen catheter tip superior vena cava, no pneumothorax. Mild perihilar alveolar infiltrates with Nancy lines from pulmonary edema or fluid overload. Assessment & Plan - Diagnosis (1) Acute exacerbation of CHF (congestive heart failure) Qualifiers: Heart failure type: systolic Qualified Code(s): I50.23 - Acute on chronic systolic (congestive) heart failure Is this a current diagnosis for this admission?: Yes Plan: Likely due to underlying pneumonia/end-stage renal disease. Patient is status post hemodialysis. Monitor volume status. (2) Hypoxia Is this a current diagnosis for this admission?: Yes Plan: Hypoxic respiratory failure likely caused by volume overload secondary to CHF/end-stage renal disease. Status post hemodialysis. Monitor volume status. Continue BiPAP, nebs, IV steroids, empiric antibiotics. (3) Pneumonia Is this a current diagnosis for this admission?: Yes Plan: Start on empiric antibiotics. Follow-up sputum and blood culture. (4) Anemia Qualifiers: Anemia type: unspecified type Qualified Code(s): D64.9 - Anemia, unspecified Is this a current diagnosis for this admission?: No Plan: Multifactorial including from ESRD and obviously from his relapsing multiple myeloma. We will get iron studies. Supportive transfusion. (6) Fluid overload Qualifiers: Hypervolemia type: unspecified Qualified Code(s): E87.70 - Fluid overload, unspecified Is this a current diagnosis for this admission?: Yes Plan: As per problem #1. (7) Myeloma Qualifiers: Multiple myeloma remission status: in relapse Qualified Code(s): C90.02 - Multiple myeloma in relapse Is this a current diagnosis for this admission?: Yes Plan: Outpatient oncology follow-up.
--- NOTE | 2018-11-30 13:28 | PDOC CONSULTATION ---
Consultation Consult Date: 11/30/18 Consult reason:: Acute CHF urgent hemodialysis. Background ESRD History of Present Illness Admission Date/PCP: 11/30/18 12:56 [facility] History of Present Illness: VERA SPEARS is a 62 year old male who is a resident at [facility] has significant medical history of A. 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 He has developed a cough over the last couple of weeks and has had progressive shortness of breath on exertion. No history of any chest pains or orthopnea. Today patient was scheduled to have his left upper extremity fistula removed by vascular surgeon while being transported patient was noted to be hypoxic. Saturating in 80s. Evaluations in the ER reveals that he has got congestive heart failure with possibility of added pneumonia as well. Patient has a chronic indwelling Ramon catheter and it was replaced yesterday. As per she has noticed blood in the urine when changing the bag. He also has history of chronic anemia however never been transfused. He denies any hemoptysis, hematemesis, melena, hematochezia or bright blood per rectum. Denies any fever, chills, chest pain, nausea, abdominal pain, diarrhea, constipation or any urinary symptoms except for hematuria. Currently he is being seen while undergoing dialysis. He has no specific complaints at the moment. He seems to be feeling better with the BiPAP. Labs and medications were reviewed. His last dialysis was yesterday. He is making decent amounts of urine according to his through the Ramon catheter. Past Medical History Cardiac Medical History: Reports: Atrial Fibrillation Pulmonary Medical History: Reports: Asthma, Chronic Obstructive Pulmonary Disease (COPD) Endocrine Medical History: Reports: Diabetes Mellitus Type 2 Renal/ Medical History: Reports: End Stage Renal Disease, Secondary Hyperparathyroidism Hematology Medical History: Reports Anemia of Chronic Kidney Disease Past Surgical History Past Surgical History: Reports: Appendectomy, Orthopedic Surgery - bilateral, Tonsillectomy Social History Smoking Status: Former Smoker Family History Parental Family History Reviewed: No Children Family History Reviewed: No Sibling(s) Family History Reviewed.: No Medication/Allergy Home Medications: RX: Albuterol Sulfate [Proair HFA Inhalation Aerosol 8.5 gm MDI] 1 puff IH Q6 11/30/18 RX: Ascorbic Acid [Vitamin C 500 mg Tablet] 500 mg PO DAILY 11/30/18 RX: Aspirin [Ecotrin 81 mg EC Tablet] 81 mg PO DAILY 11/30/18 RX: Atorvastatin Calcium [Lipitor 40 mg Tablet] 40 mg PO QHS 11/30/18 RX: Calcitriol [Rocaltrol 0.25 mcg Capsule] 0.75 mcg PO DAILY 11/30/18 RX: Cholecalciferol (Vitamin D3) [Vitamin D3 2000 unit Tablet] 2,000 unit PO DAILY 11/30/18 RX: Cyclobenzaprine HCl [Flexeril 10 mg Tablet] 10 mg PO Q8HP PRN 11/30/18 RX: Docusate Sodium [Colace 100 mg Capsule] 100 mg PO BID 11/30/18 RX: Ferrous Sulfate [Feosol 325 mg Tablet] 325 mg PO DAILY 11/30/18 RX: Fluoxetine HCl [Prozac 20 mg Capsule] 40 mg PO DAILY 11/30/18 RX: Folic Acid/Vitamin B Comp W-C [Nephrocaps Softgel] 1 mg PO DAILY 11/30/18 RX: Hydrocodone/Acetaminophen [[place] 5-325 mg Tablet] 1 tab PO Q6HP PRN 11/30/18 RX: Levothyroxine Sodium [Synthroid 0.088 mg Tablet] 88 mcg PO Q6AM 11/30/18 RX: Loratadine [Claritin 10 mg Tablet] 10 mg PO DAILY 11/30/18 RX: Metoprolol Tartrate [Lopressor 25 mg Tablet] 12.5 mg PO Q12 11/30/18 RX: Morphine Sulfate [Ms-Contin Sr 15 mg Tablet] 15 mg PO Q12 11/30/18 RX: Na Phos,M-B/Na Phos,Di-Ba [Fleet Enema (Adult) 133 ml] 133 ml [place] ASDIR PRN 11/30/18 RX: Ondansetron [Zofran Odt 4 mg Tablet] 4 mg PO Q8HP PRN 11/30/18 RX: Pantoprazole Sodium [Protonix] 40 mg PO DAILY 11/30/18 RX: Polyethylene Glycol 3350 [Miralax Powder 17 gm/Packet] 1 packet PO DAILY 11/30/18 RX: Ropinirole HCl [Requip] 0.5 mg PO QHS 11/30/18 RX: Sennosides [Senna] 8.6 mg PO BID 11/30/18 RX: Sevelamer Carbonate [Renvela] 1,600 mg PO MEALS 11/30/18 RX: Trazodone HCl [Desyrel 50 mg Tablet] 25 mg PO QHS 11/30/18 RX: Vit B Comp No.3/Folic/C/Biotin [Steph-Lou Rx Tablet] 1 each PO DAILY 11/30/18 RX: Warfarin Sodium [Coumadin 5 mg Tablet] 5 mg PO QHS 11/30/18 Allergies/Adverse Reactions: Sulfa (Sulfonamide Antibiotics) Adverse Reaction (Verified 07/23/18 14:39) Vomiting sulfamethoxazole [From Bactrim] Adverse Reaction (Verified 07/23/18 14:39) Vomiting trimethoprim [From Bactrim] Adverse Reaction (Verified 07/23/18 14:39) Vomiting Review of Systems Constitutional: PRESENT: fatigue. ABSENT: fever(s), headache(s), night sweats Nose, Mouth, and Throat: ABSENT: mouth pain, sore throat Cardiovascular: PRESENT: dyspnea on exertion. ABSENT: chest pain, edema, orthropnea Respiratory: PRESENT: cough, dyspnea. ABSENT: hemoptysis Gastrointestinal: ABSENT: abdominal pain, diarrhea, dysphagia, heartburn, hematemesis, hematochezia, nausea, vomiting Genitourinary: ABSENT: dysuria, hematuria Integumentary: ABSENT: erythema, lesions, pruritus, rash Neurological: ABSENT: abnormal movements, abnormal speech, focal weakness, frequent falls Hematologic/Lymphatic: ABSENT: easy bleeding, easy bruising, lymphadenopathy Physical Exam Vital Signs: Temp Pulse Resp BP Pulse Ox 94 11/30/18 09:52 Intake & Output 11/29/18 11/30/18 12/01/18 06:59 06:59 06:59 Intake Total 100 Balance 100 General appearance: PRESENT: mild distress Eye exam: PRESENT: EOMI, PERRLA. ABSENT: nystagmus Ear exam: PRESENT: normal external ear exam Mouth exam: PRESENT: moist, neck supple Neck exam: ABSENT: lymphadenopathy, meningismus, tenderness, thyromegaly, t musa deviation Respiratory exam: PRESENT: clear to auscultation mac, crackles, decreased breath sounds Cardiovascular exam: PRESENT: +S1, +S2 GI/Abdominal exam: PRESENT: normal bowel sounds, soft. ABSENT: organomegaly, te nderness Extremities exam: PRESENT: pedal edema, other - His left leg is BKA. Neurological exam: PRESENT: awake, oriented to person, oriented to place Skin exam: ABSENT: erythema, mottled, rash Results Laboratory Results: 11/30/18 10:40 11/30/18 10:40 11/30/18 11/30/18 11/30/18 10:40 10:40 10:40 WBC 5.6 RBC 3.00 L Hgb 7.3 L Hct 22.5 L MCV 75 L MCH 24.4 L MCHC 32.5 RDW 19.5 H Plt Count 178 Seg Neutrophils % 71.7 Lymphocytes % 18.9 Monocytes % 5.6 Eosinophils % 2.7 Basophils % 1.1 Absolute Neutrophils 4.1 Absolute Lymphocytes 1.1 Absolute Monocytes 0.3 Absolute Eosinophils 0.2 Absolute Basophils 0.1 VBG pH VBG pCO2 VBG HCO3 VBG Base Excess Sodium 141.2 Potassium 3.3 L Chloride 103 Carbon Dioxide 30 Anion Gap 8 BUN 17 Creatinine 1.63 H Est GFR ( Amer) 52 L Est GFR (Non-Af Amer) 43 L Glucose 106 Calcium 9.3 Total Bilirubin 0.7 AST 12 L ALT 14 L Alkaline Phosphatase 70 Total Protein 5.7 L Albumin 3.3 L Urine Color YELLOW Urine Appearance CLOUDY Urine pH 8.0 Ur Specific [place] 1.009 Urine Protein 100 H Urine Glucose (UA) NEGATIVE Urine Ketones NEGATIVE Urine Blood LARGE H Urine Nitrite NEGATIVE Ur Leukocyte Esterase TRACE H Urine WBC (Auto) 27 Urine RBC (Auto) >182 11/30/18 10:40 WBC RBC Hgb Hct MCV MCH MCHC RDW Plt Count Seg Neutrophils % Lymphocytes % Monocytes % Eosinophils % Basophils % Absolute Neutrophils Absolute Lymphocytes Absolute Monocytes Absolute Eosinophils Absolute Basophils VBG pH 7.46 H VBG pCO2 46.4 VBG HCO3 31.9 VBG Base Excess 7.2 Sodium Potassium Chloride Carbon Dioxide Anion Gap BUN Creatinine Est GFR ( Amer) Est GFR (Non-Af Amer) Glucose Calcium Total Bilirubin AST ALT Alkaline Phosphatase Total Protein Albumin Urine Color Urine Appearance Urine pH Ur Specific [place] Urine Protein Urine Glucose (UA) Urine Ketones Urine Blood Urine Nitrite Ur Leukocyte Esterase Urine WBC (Auto) Urine RBC (Auto) 11/30/18 10:40 Troponin I < 0.012 NT-Pro-B Natriuret Pep [id number] H Impressions: Chest X-Ray 11/30/18 09:52 IMPRESSION: Left-sided triple-lumen catheter tip superior vena cava, no pneumothorax. Mild perihilar alveolar infiltrates with Nancy lines from pulmonary edema or fluid overload. Assessment & Plan - Diagnosis (1) CHF (congestive heart failure) Plan: Plan to remove 2-3 L as tolerated. Discussed dialysis orders with the treating nurse Vannessa. I believe looking at his x-ray he possibly has early pneumonia. Discussed with hospitalist about his starting on IV antibiotics appropriately. (2) ESRD (end stage renal disease) on dialysis Plan: Patient is currently undergoing dialysis without any issues. Is being supervised to ensure safe and smooth procedure.Vital signs are stable. Plan to remove 3 L as tolerated. Dialysis orders were reviewed with the treating dialysis nurse. His potassium is only 3.3 and his creatinine is 1.6 though he was dialyzed yesterday. We will add a 24 urine to see if he is creatinine clearance is improving. (3) Pneumonia Plan: Early. Immune compromised patient discussed with hospitalist about initiating antibiotic coverage. (4) Myeloma Qualifiers: Multiple myeloma remission status: in relapse Qualified Code(s): C90.02 - Multiple myeloma in relapse Plan: Now has relapsed. Plans as per heme oncologist. (5) Anemia Qualifiers: Anemia type: unspecified type Qualified Code(s): D64.9 - Anemia, unspecified Plan: Multifactorial including from ESRD and obviously from his relapsing multiple myeloma. Would recommend getting iron studies after he has had his dialysis and see if he needs to be transfused over the next day or 2. His anemia should improve after ultrafiltration today.
[2018-11-30] MEDS ORDERED: ACETAMINOPHEN 325 MG TABLET PO PRN (13:43)
[2018-11-30] MEDS: LEVALBUTEROL HCL NEB 0.63 MG/3 ML AMPUL NEB SCH ×2 (15:05→20:40)
[2018-11-30] MEDS ORDERED: CYCLOBENZAPRINE HCL 10 MG TABLET PO PRN (18:44)
[2018-11-30] MEDS ORDERED: ONDANSETRON 4 MG TAB.RAPDIS PO PRN (18:44)
[2018-11-30] MEDS: MORPHINE SULFATE 10 MG/ML INJ IV PRN (20:23)
[2018-11-30 20:50] LABS: ABSOLUTE RETICS # 0.073 10^6/uL (0.028-0.122); RETICULOCYTE COUNT (AUTO) 2.46 % (0.66-2.85)
[2018-11-30 21:09] LABS: IRON(TIBC) 20.1 ug/dL (49-181)
[2018-11-30] MEDS ORDERED: WARFARIN SODIUM 5 MG TABLET PO SCH (22:00)
[2018-11-30] MEDS ORDERED: (PENDING PHARMACY ID) (Ropinirole Hcl [Requip] 0.5 MG) PO SCH (22:00)
[2018-11-30] MEDS ORDERED: (PENDING PHARMACY ID) (Warfarin Sodium 5 MG) PO SCH (22:00)
--- NOTE | 2018-11-30 22:09 | RADIOLOGY REPORT (SQ) ---
EXAM DESCRIPTION: NM LUNG VENTILATION PERFUSION COMPLETED DATE/TME: 11/30/2018 00:00 CLINICAL HISTORY: 62 years, Male, SOB, HYPOXIA (Dialysis Not till 12/04) COMPARISON: Chest x-ray from today's date RADIONUCLIDE AND DOSE: 5 mCi technetium 99m MAA and 30 mCi technetium 99m DTPA aerosol ADDITIONAL DRUGS AND DOSES: None TECHNIQUE: Following the IV administration of technetium 99m AA and inhalation of DTPA aerosol, perfusion and ventilation images over both lungs were obtained. RADIATION DOSE: Unknown LIMITATIONS: None. FINDINGS: Poor radiotracer activity on the ventilation portion of the exam likely reflecting air trapping/COPD. No focal perfusion defects. IMPRESSION: Low probability for PE copyright 2010 [employer]- All Rights Reserved
[2018-11-30 22:14] LABS: FOLATE > 20.00 ng/mL (>2.76)
[2018-11-30] MEDS: METHYLPREDNISOLONE INJ 125 MG/2 ML SDV IV SCH (22:39)
[2018-11-30] MEDS: CEFTRIAXONE 1 GM/D5W RTU 1 GM/50 ML RTUPB IV SCH (22:52)
[2018-11-30] MEDS: METOPROLOL TARTRATE 25 MG TABLET PO SCH (22:53)
[2018-11-30] MEDS: ATORVASTATIN CALCIUM 40 MG TABLET PO SCH (22:53)
[2018-11-30] MEDS: FAMOTIDINE 20 MG TABLET PO SCH (22:53)
[2018-11-30] MEDS: TRAZODONE HCL 50 MG TABLET PO SCH (22:54)
--- NOTE | 2018-11-30 22:55 | EKG REPORT ---
SEVERITY:- ABNORMAL ECG - ATRIAL FIBRILLATION VENTRICULAR PREMATURE COMPLEX REPOL ABNRM SUGGESTS ISCHEMIA, DIFFUSE LEADS : Confirmed by: Allison Andres MD 30-Nov-2018 22:54:42
[2018-11-30] MEDS: ROPINIROLE HCL 0.25 MG TABLET PO SCH (22:56)
[2018-11-30] MEDS: MORPHINE SULFATE SR 15 MG TABLET PO SCH (22:57)
[2018-11-30] MEDS: GUAIFENESIN 600 MG TABLET.SA PO SCH (23:30)
[2018-12-01] MEDS ORDERED: ALBUTEROL SULFATE HFA (90 MCG/PUFF) 200 PUFF/8.5 GM MDI IH SCH
[2018-12-01] MEDS: LEVALBUTEROL HCL NEB 0.63 MG/3 ML AMPUL NEB SCH ×4 (01:31→19:35)
[2018-12-01 05:09] LABS: HEMATOCRIT 23.8 % (37.9-51.0); MEAN CORPUSCULAR HEMOGLOBIN 24.2 pg (27.0-33.4); MEAN CORPUSCULAR HGB CONC 32.8 g/dL (32.0-36.0); MEAN CORPUSCULAR VOLUME 74 fl (80-97); PLATELET COUNT 184 10^3/uL (150-450); RED BLOOD COUNT 3.23 10^6/uL (4.35-5.55); RED CELL DISTRIBUTION WIDTH 19.8 % (11.5-14.0); WHITE BLOOD COUNT 4.7 10^3/uL (4.0-10.5)
[2018-12-01 05:15] LABS: INTERNATIONAL RATION (INR) 1.86; PROTHROMBIN TIME 22.3 SEC (11.4-15.4)
[2018-12-01 05:27] LABS: HEMOGLOBIN 7.8 g/dL (13.5-17.0)
[2018-12-01 05:31] LABS: ALANINE AMINOTRANSFERASE 17 U/L (21-72); ALBUMIN 3.7 g/dL (3.5-5.0); ALKALINE PHOSPHATASE 76 U/L (38-126); ANION GAP 7 (5-19); ASPARTATE AMINO TRANSFERASE 13 U/L (17-59); BILIRUBIN,DIRECT 0.4 mg/dL (0.0-0.4); BILIRUBIN,TOTAL 0.8 mg/dL (0.2-1.3); BLOOD UREA NITROGEN 16 mg/dL (7-20); CALCIUM 9.6 mg/dL (8.4-10.2); CARBON DIOXIDE 32 mmol/L (22-30); CHLORIDE 101 mmol/L (98-107); GLUCOSE 158 mg/dL (75-110); POTASSIUM 4.2 mmol/L (3.6-5.0); SODIUM 139.9 mmol/L (137-145); TOTAL PROTEIN 6.1 g/dL (6.3-8.2)
[2018-12-01] MEDS: LANSOPRAZOLE 30 MG TAB.RAP.DR PO SCH (06:10)
[2018-12-01] MEDS: METHYLPREDNISOLONE INJ 125 MG/2 ML SDV IV SCH ×3 (06:10→23:44)
[2018-12-01] MEDS ORDERED: LEVOTHYROXINE SODIUM 0.088 MG TABLET ONE (06:19)
[2018-12-01] MEDS: LEVOTHYROXINE SODIUM 0.088 MG TABLET PO SCH (06:39)
[2018-12-01] MEDS ORDERED: (PENDING PHARMACY ID) (Sevelamer Carbonate [Renvela] 1,600 MG) PO SCH (08:00)
[2018-12-01] MEDS: GUAIFENESIN 600 MG TABLET.SA PO SCH ×2 (09:17→23:45)
[2018-12-01] MEDS: CALCITRIOL 0.25 MCG CAPSULE PO SCH (09:17)
[2018-12-01] MEDS: DOCUSATE SODIUM 100 MG CAPSULE PO SCH ×2 (09:17→18:19)
[2018-12-01] MEDS: FERROUS SULFATE 325 MG TABLET PO SCH (09:17)
[2018-12-01] MEDS: MORPHINE SULFATE SR 15 MG TABLET PO SCH ×2 (09:17→23:43)
[2018-12-01] MEDS: CHOLECALCIFEROL (D3) 1,000 UNIT TABLET PO SCH (09:18)
[2018-12-01] MEDS: METOPROLOL TARTRATE 25 MG TABLET PO SCH ×2 (09:18→23:44)
[2018-12-01] MEDS: ASPIRIN 81 MG TABLET, ENT COATED PO SCH (09:18)
[2018-12-01] MEDS: FLUOXETINE HCL 20 MG CAPSULE PO SCH (09:18)
[2018-12-01] MEDS: FAMOTIDINE 20 MG TABLET PO SCH ×2 (09:18→23:45)
[2018-12-01] MEDS: MORPHINE SULFATE 10 MG/ML INJ IV PRN ×2 (09:19→13:28)
[2018-12-01] MEDS: SENNOSIDES/DOCUSATE 8.6-50 MG 1 EACH TABLET PO SCH ×2 (09:19→18:19)
[2018-12-01] MEDS: SEVELAMER HCL 800 MG TABLET PO SCH ×3 (09:19→16:34)
[2018-12-01] MEDS: ASCORBIC ACID 500 MG TABLET PO SCH (09:19)
[2018-12-01] MEDS ORDERED: (PENDING PHARMACY ID) (Cholecalciferol (Vitamin D3) [Vitamin D3 2000 Unit Tablet] 2,000 UN PO SCH (10:00)
[2018-12-01] MEDS ORDERED: (PENDING PHARMACY ID) (Sennosides [Senna] 8.6 MG) PO SCH (10:00)
[2018-12-01] MEDS ORDERED: (PENDING PHARMACY ID) (Vit B Comp No.3/Folic/C/Biotin [Rena-Vite Rx Tablet] 1 EACH) PO SCH (10:00)
[2018-12-01] MEDS: FOLIC ACID/VITAMIN B COMP W-C CAPSULE PO SCH (10:59)
[2018-12-01] MEDS: TIOTROPIUM BROMIDE DPI 5 CAP/KIT (18 MCG/CAP) IH SCH (11:00)
--- NOTE | 2018-12-01 13:36 | XCELERA REPORT ---
[address] [address] Transthoracic Echocardiogram Report Name: VERA SPEARS Age: 62 yrs Gender: Male : 1955 Patient Status: Inpatient Patient Location: [place] [address]^A Study Date: 12/01/2018 11:07 AM Height: 61 in Weight: 170 lb BSA: 1.8 m2 Reason For Study: CHF Ordering Physician: SHAQUILLE FUNEZ Performed By: Enrrique Jewell Interpretation Summary Study quality suboptimal with some poor images and off-axis views.Lack of contrast limits interpretation for LV thrombus/ wall motion and accurately assess LVEF. LVEF visually appears severely decreased at 25-30%. RV not well visualized but RV systolic function appears mild to moderately decreased. The transmitral spectral Doppler flow pattern is abnormal for age Eccentric MR that appears mild to moderate on color doppler. AV not well visualized but appears focally calcified. Doppler data provided not suggestive of any significant stenosis. However, subopotimal doppler sampling as well as low cardiac output can lead to low gradients across AV. If severe clinically suspected consider CLEM and/ dobutamine stress echo to determine true severity of . There is a mild amount of tricuspid regurgitation. IVC dilated with decreased respiratory variation. estimated mean RA pressure at 15 mm Hg. There is no pericardial effusion. MMode/2D Measurements & Calculations RVDd: 1.4 cm LVIDd: 5.4 cm FS: 25.4 % Ao root diam: 2.8 cm IVSd: 0.77 cm LVIDs: 4.0 cm EDV(Teich): 143.0 ml LVPWd: 1.5 cm ESV(Teich): 72.0 ml Ao root area: 6.2 cm2 EF(Teich): 49.7 % LVOT diam: 1.3 cm LVOT area: 1.3 cm2 Doppler Measurements & Calculations MV E max ayanna: MV dec slope: Ao V2 max: LV V1 max P.7 cm/sec 866.2 cm/sec2 136.9 cm/sec 6.9 mmHg MV A max ayanna: MV dec time: 0.15 secAo max PG: LV V1 max: 47.0 cm/sec 7.5 mmHg 131.3 cm/sec MV E/A: 2.8 ROCKY(V,D): 1.3 cm2 MR max ayanan: TR max ayanna: 446.1 cm/sec 327.6 cm/sec MR max P.6 mmHgTR max P.9 mmHg Left Ventricle false tendon noted in LV. Left ventricular systolic function is severely reduced. LV EF is 25-30%.%. The transmitral spectral Doppler flow pattern is abnormal for age. Right Ventricle The right ventricle is not well visualized secondary to technical limitations. The right ventricular systolic function is mild to moderately reduced. Atria The right atrium is dilated. The left atrium is not well visualized secondary to technical limitations. Mitral Valve MV leaflets appear thickend/ calcified but appear to open well. Eccentric MR that appears mild to moderate on color doppler. Aortic Valve AV not well visualized but appears focally calcified. Doppler data provided not suggestive of any significant stenosis. Howvere suboptimal doppler sampling as well as low cardiac output can lead to low gradients across AV. If severe clinically suspected consider CLEM and/ dobutamine stress echo to determine true severity of . Tricuspid Valve The tricuspid valve is not well visualized, but is grossly normal. There is a mild amount of tricuspid regurgitation. Pulmonic Valve The pulmonic valve is not well visualized. Great Vessels IVC dilated with decreased respiratory variation. estimated mean RA pressure at 15 mm Hg. Effusions There is no pericardial effusion. : SHAQUILLE FUNEZ > Miguel Angel Saunders
[2018-12-01] MEDS: HYDROCODONE/ACETAMINOPHEN 5-325 MG TABLET PO PRN (16:48)
--- NOTE | 2018-12-01 17:47 | PDOC PROGRESS REPORT ---
Subjective Progress Note for:: 12/01/18 Subjective:: VERA SPEARS is a 62 year old male past medical history of A. fib currently on Coumadin, COPD/asthma, end-stage renal disease on hemodialysis [Monday, , Monday with Right upper extremity fistula], diabetes mellitus, left above-knee BKA, left MCA ischemic stroke in 2018, stage IV sacral wound ulcer with a wound VAC, metastatic multiple myeloma, opiate dependency due to chronic pain. Currently residing in [place] half-way since June 19, 2018. Today patient was scheduled to have his left upper extremity fistula removed by vascular surgeon while being transported patient was noted to be hypoxic. Saturating in 80s. His who is at the bedside and is the primary caregiver stating that patient had been complaining of dry nonproductive cough over the last 2 weeks with worsening shortness of breath Patient is stating that he has a very low appetite and has had significant weight loss since last year. Patient has a chronic indwelling Ramon catheter and it was replaced yesterday. As per she has noticed blood in the urine when changing the bag. He also has history of chronic anemia however never been transfused. He denies any hemoptysis, hematemesis, melena, hematochezia or bright blood per rectum. Denies any fever, chills, chest pain, nausea, abdominal pain, diarrhea, constipation or any urinary symptoms except for hematuria. 12/01/2018. Patient stating that he is feeling much better since admission still complaining of generalized pain especially worse in the sacral area where he has a wound VAC because of decubitus ulcer. Patient had hemodialysis yesterday. CTA could not be done however VQ scan was negative for PE. Patient denies having any fever, chills, nausea, vomiting, diarrhea but complaining of chronic constipation likely due to opioid for his chronic pain. Reason For Visit: HYPOXIC RESPIRATORY FAILURE,VOLUME OVERLOAD Physical Exam Vital Signs: Temp Pulse Resp BP Pulse Ox 97.8 F 80 16 155/77 H 95 12/01/18 09:30 12/01/18 14:00 12/01/18 14:00 12/01/18 13:31 12/01/18 17:28 Pulse Oximeter Continuous Start: 11/30/18 13:44 Freq: RTQ4 Status: Active Protocol: Document 12/01/18 17:28 [facility] (Rec: 12/01/18 17:29 [facility] [email or web address]) Pulse Oximetry Assessment Oxygen Saturation (92-100) 95 Oxygen Delivery Method Room Air Equipment Usage Initial Set Up Continuous Pulse Oximeter 24 Hour Charge Charge Now Continuous SpO2 Machine # [id number] Intake & Output 11/30/18 12/01/18 12/02/18 06:59 06:59 06:59 Intake Total 100 50 Output Total 1500 Balance -1400 50 Weight 77.111 kg General appearance: PRESENT: no acute distress, well-developed, well-nourished Head exam: PRESENT: atraumatic, normocephalic Respiratory exam: PRESENT: clear to auscultation mac. ABSENT: rales, rhonchi, wheezes Cardiovascular exam: PRESENT: RRR. ABSENT: diastolic murmur, rubs, systolic murmur Musculoskeletal exam: PRESENT: other - Left lower extremity amputation above the knee. Neurological exam: PRESENT: alert, altered, awake, oriented to person, oriented to place, oriented to time, CN II-XII grossly intact - Left upper extremity paresis due to recent stroke. Skin exam: PRESENT: other - Which is also wound VAC in place. Results Laboratory Results: 12/01/18 04:50 12/01/18 11:31 11/30/18 11/30/18 11/30/18 10:40 10:40 10:40 WBC RBC Hgb Hct MCV MCH MCHC RDW Plt Count Retic Count (auto) 2.46 Absolute Retic 0.073 Sodium Potassium Chloride Carbon Dioxide Anion Gap BUN Creatinine Est GFR ( Amer) Est GFR (Non-Af Amer) Glucose Calcium Magnesium Iron 20.1 L TIBC 306 % Saturation 7 Ferritin 280.00 Total Bilirubin AST ALT Alkaline Phosphatase Total Protein Albumin Vitamin B12 613.0 Folate > 20.00 Ur 24 Hour Volume Blood Type Antibody Screen 11/30/18 12/01/18 12/01/18 17:08 04:50 04:50 WBC 4.7 RBC 3.23 L Hgb 7.8 L Hct 23.8 L MCV 74 L MCH 24.2 L MCHC 32.8 RDW 19.8 H Plt Count 184 Retic Count (auto) Absolute Retic Sodium 139.9 Potassium 4.2 Chloride 101 Carbon Dioxide 32 H Anion Gap 7 BUN 16 Creatinine 1.54 H Est GFR ( Amer) 55 L Est GFR (Non-Af Amer) 46 L Glucose 158 H Calcium 9.6 Magnesium 2.1 Iron TIBC % Saturation Ferritin Total Bilirubin 0.8 AST 13 L ALT 17 L Alkaline Phosphatase 76 Total Protein 6.1 L Albumin 3.7 Vitamin B12 Folate Ur 24 Hour Volume Blood Type A POSITIVE Antibody Screen NEGATIVE 12/01/18 11:31 WBC RBC Hgb Hct MCV MCH MCHC RDW Plt Count Retic Count (auto) Absolute Retic Sodium Potassium Chloride Carbon Dioxide Anion Gap BUN Creatinine Cancelled Est GFR ( Amer) Est GFR (Non-Af Amer) Glucose Calcium Magnesium Iron TIBC % Saturation Ferritin Total Bilirubin AST ALT Alkaline Phosphatase Total Protein Albumin Vitamin B12 Folate Ur 24 Hour Volume Cancelled Blood Type Antibody Screen 11/30/18 10:40 Troponin I < 0.012 NT-Pro-B Natriuret Pep 69487 H Impressions: Lung Scan-VQ NM 11/30/18 00:00 IMPRESSION: Low probability for PE copyright 2010 [employer]- All Rights Reserved Chest X-Ray 11/30/18 09:52 IMPRESSION: Left-sided triple-lumen catheter tip superior vena cava, no pneu mothorax. Mild perihilar alveolar infiltrates with Nancy lines from pulmonary edema or fluid overload. Assessment & Plan - Diagnosis (1) Acute exacerbation of CHF (congestive heart failure) Qualifiers: Heart failure type: systolic Qualified Code(s): I50.23 - Acute on chronic systolic (congestive) heart failure Is this a current diagnosis for this admission?: Yes Plan: Likely due to underlying pneumonia/end-stage renal disease. 2D echo on 12/01/2018 showed ejection fraction of 25-30%. Patient is status post hemodialysis. Monitor volume status. (2) Hypoxia Is this a current diagnosis for this admission?: Yes Plan: Improving. Saturating 96% on 1 L. Hypoxic respiratory failure likely caused by volume overload secondary to CHF/end-stage renal disease. Status post hemodialysis. Monitor volume status. Continue BiPAP, nebs, IV steroids, empiric antibiotics. (3) Pneumonia Is this a current diagnosis for this admission?: Yes Plan: Day 2 of IV ceftriaxone. Prelim cultures negative. (4) Anemia Qualifiers: Anemia type: unspecified type Qualified Code(s): D64.9 - Anemia, unspecified Is this a current diagnosis for this admission?: No Plan: Multifactorial including from ESRD/anemia of chronic disease, multiple myeloma iron deficiency anemia. Iron studies suggestive of iron deficiency anemia. Start on ferrous sulfate. Hemoglobin 7.8 today. H&H tomorrow. Supportive transfusion. (5) ESRD (end stage renal disease) on dialysis Is this a current diagnosis for this admission?: No Plan: On hemodialysis. Nephrology following. Hemodialysis Monday. Right upper extremity fistula. (6) Fluid overload Qualifiers: Hypervolemia type: unspecified Qualified Code(s): E87.70 - Fluid overload, unspecified Is this a current diagnosis for this admission?: Yes Plan: As per problem #1. (7) Myeloma Qualifiers: Multiple myeloma remission status: in relapse Qualified Code(s): C90.02 - Multiple myeloma in relapse Is this a current diagnosis for this admission?: Yes Plan: Outpatient oncology follow-up. Followed by oncology at [facility]. Last visit November 2018. Another follow-up in 6 months. [place] not receiving any treatment for multiple myeloma per . (8) Hematuria Is this a current diagnosis for this admission?: Yes Plan: UA positive for blood. Pending renal and bladder ultrasound. Outpatient urology follow-up. Unfortunately urology consult not available.
--- NOTE | 2018-12-01 17:51 | RADIOLOGY REPORT (SQ) ---
EXAM DESCRIPTION: U/S RETROPERITON (RENAL/AORTA) COMPLETED DATE/TIME: 12/01/2018 5:42 pm REASON FOR STUDY: Hematuria COMPARISON: None. TECHNIQUE: Dynamic and static grayscale images acquired of the kidneys and bladder and recorded on P ACS. Additional selected color Doppler and spectral images recorded. LIMITATIONS: Patient did not will have the exam performed. Limited study. FINDINGS: RIGHT KIDNEY: No hydronephrosis. Nonobstructing 1 cm calculus. LEFT KIDNEY: Not visualized. BLADDER: No masses. OTHER FINDINGS: No other significant finding. IMPRESSION: Limited study. No right-sided hydronephrosis. Left kidney not visualized. TECHNICAL DOCUMENTATION: JOB ID: [id number] [employer]- All Rights Reserved Reading location - IP/workstation name: [email or web address]
[2018-12-01] MEDS ORDERED: WARFARIN SODIUM 5 MG TABLET PO SCH (22:00)
[2018-12-01] MEDS: CEFTRIAXONE 1 GM/D5W RTU 1 GM/50 ML RTUPB IV SCH (23:43)
[2018-12-01] MEDS: TRAZODONE HCL 50 MG TABLET PO SCH (23:44)
[2018-12-01] MEDS: ATORVASTATIN CALCIUM 40 MG TABLET PO SCH (23:45)
[2018-12-01] MEDS: ROPINIROLE HCL 0.25 MG TABLET PO SCH (23:46)
[2018-12-02] MEDS: LEVALBUTEROL HCL NEB 0.63 MG/3 ML AMPUL NEB SCH ×4 (02:16→19:35)
[2018-12-02] MEDS: LEVOTHYROXINE SODIUM 0.088 MG TABLET PO SCH (05:34)
[2018-12-02] MEDS: LANSOPRAZOLE 30 MG TAB.RAP.DR PO SCH (05:34)
[2018-12-02] MEDS: METHYLPREDNISOLONE INJ 125 MG/2 ML SDV IV SCH ×3 (05:34→22:58)
[2018-12-02 05:58] LABS: HEMATOCRIT 24.5 % (37.9-51.0); INTERNATIONAL RATION (INR) 2.07; MEAN CORPUSCULAR HEMOGLOBIN 23.9 pg (27.0-33.4); MEAN CORPUSCULAR HGB CONC 31.7 g/dL (32.0-36.0); MEAN CORPUSCULAR VOLUME 75 fl (80-97); PLATELET COUNT 216 10^3/uL (150-450); PROTHROMBIN TIME 24.3 SEC (11.4-15.4); RED BLOOD COUNT 3.25 10^6/uL (4.35-5.55); WHITE BLOOD COUNT 4.7 10^3/uL (4.0-10.5)
[2018-12-02 06:04] LABS: HEMOGLOBIN 7.8 g/dL (13.5-17.0)
[2018-12-02 07:11] LABS: ALANINE AMINOTRANSFERASE 14 U/L (21-72); ALBUMIN 3.8 g/dL (3.5-5.0); ALKALINE PHOSPHATASE 69 U/L (38-126); ANION GAP 11 (5-19); ASPARTATE AMINO TRANSFERASE 10 U/L (17-59); BILIRUBIN,DIRECT 0.5 mg/dL (0.0-0.4); BILIRUBIN,TOTAL 0.5 mg/dL (0.2-1.3); BLOOD UREA NITROGEN 31 mg/dL (7-20); CALCIUM 9.8 mg/dL (8.4-10.2); CARBON DIOXIDE 28 mmol/L (22-30); CHLORIDE 100 mmol/L (98-107); GLUCOSE 228 mg/dL (75-110); POTASSIUM 4.3 mmol/L (3.6-5.0); SODIUM 139.4 mmol/L (137-145); TOTAL PROTEIN 6.2 g/dL (6.3-8.2)
[2018-12-02] MEDS ORDERED: DEXTROSE 40% GEL 15 GM TUBE X 2 PO PRN (11:00)
[2018-12-02] MEDS ORDERED: DEXTROSE 50%-WATER SYRINGE 12.5 GM/25 ML DOSE IV PRN (11:00)
[2018-12-02] MEDS ORDERED: DEXTROSE 40% GEL 15 GM TUBE PO PRN (11:00)
[2018-12-02] MEDS ORDERED: DEXTROSE 50%-WATER SYRINGE 25 GM/50 ML DOSE IV PRN (11:00)
[2018-12-02] MEDS ORDERED: GLUCAGON,HUMAN RECOMB 1 MG INJ IM PRN (11:00)
[2018-12-02] MEDS ORDERED: VANCOMYCIN HCL 0 MG in DEXTROSE 5%-WATER 250 ML IV NR (11:00)
[2018-12-02] MEDS: CALCITRIOL 0.25 MCG CAPSULE PO SCH (11:23)
[2018-12-02] MEDS: SEVELAMER HCL 800 MG TABLET PO SCH ×3 (11:23→17:39)
[2018-12-02] MEDS: AMLODIPINE BESYLATE 2.5 MG TABLET PO SCH (11:23)
[2018-12-02] MEDS: FLUOXETINE HCL 20 MG CAPSULE PO SCH (11:24)
[2018-12-02] MEDS: FOLIC ACID/VITAMIN B COMP W-C CAPSULE PO SCH (11:24)
[2018-12-02] MEDS: CHOLECALCIFEROL (D3) 1,000 UNIT TABLET PO SCH (11:24)
[2018-12-02] MEDS: DOCUSATE SODIUM 100 MG CAPSULE PO SCH ×2 (11:24→17:40)
[2018-12-02] MEDS: MORPHINE SULFATE SR 15 MG TABLET PO SCH ×2 (11:24→22:59)
[2018-12-02] MEDS: FAMOTIDINE 20 MG TABLET PO SCH ×2 (11:24→22:58)
[2018-12-02] MEDS: FERROUS SULFATE 325 MG TABLET PO SCH (11:25)
[2018-12-02] MEDS: ASCORBIC ACID 500 MG TABLET PO SCH (11:25)
[2018-12-02] MEDS: GUAIFENESIN 600 MG TABLET.SA PO SCH ×2 (11:25→22:58)
[2018-12-02] MEDS: ASPIRIN 81 MG TABLET, ENT COATED PO SCH (11:25)
[2018-12-02] MEDS: SENNOSIDES/DOCUSATE 8.6-50 MG 1 EACH TABLET PO SCH ×2 (11:26→17:40)
[2018-12-02] MEDS: TIOTROPIUM BROMIDE DPI 5 CAP/KIT (18 MCG/CAP) IH SCH (11:26)
[2018-12-02] MEDS: METOPROLOL TARTRATE 25 MG TABLET PO SCH ×2 (11:27→22:59)
[2018-12-02] MEDS: INSULIN LISPRO 100 UNIT/ML 3 ML VIAL SUBCUT PRN ×3 (12:35→23:15)
[2018-12-02] MEDS ORDERED: VANCOMYCIN HCL 1,500 MG in DEXTROSE 5%-WATER 250 ML IV ONE (14:00)
[2018-12-02] MEDS: HYDROCODONE/ACETAMINOPHEN 5-325 MG TABLET PO PRN (14:40)
--- NOTE | 2018-12-02 15:00 | RADIOLOGY REPORT (SQ) ---
EXAM DESCRIPTION: U/S RETROPERITON (RENAL/AORTA) COMPLETED DATE/TIME: 12/02/2018 2:23 pm REASON FOR STUDY: Hematuria COMPARISON: PET-CT [id number] Bilateral renal ultrasound 11/30/2018 TECHNIQUE: Dynamic and static grayscale images acquired of the kidneys and bladder and recorded on P ACS. Additional selected color Doppler and spectral images recorded. LIMITATIONS: Very limited patient cooperation. FINDINGS: Very limited patient cooperation. Right kidney 12 cm in length. No right-sided hydronephrosis or hydroureter. No gross cysts or sonja s. Patient would not roll over to allow us to evaluate the left kidney. Urinary bladder unremarkable IMPRESSION: No right-sided hydronephrosis. Urinary bladder unremarkable. Very limited patient cooperation, patient would not allow us to visualize the left kidney TECHNICAL DOCUMENTATION: JOB ID: [id number] [employer]- All Rights Reserved Reading location - IP/workstation name: [email or web address]
--- NOTE | 2018-12-02 15:03 | PDOC PROGRESS REPORT ---
Subjective Progress Note for:: 12/02/18 Subjective:: VERA SPEARS is a 62 year old male past medical history of A. 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 Currently residing in [facility] since June 19, 2018. Today patient was scheduled to have his left upper extremity fistula removed by vascular surgeon while being transported patient was noted to be hypoxic. Saturating in 80s. His who is at the bedside and is the primary caregiver stating that patient had been complaining of dry nonproductive cough over the last 2 weeks with worsening shortness of breath Patient is stating that he has a very low appetite and has had significant weight loss since last year. Patient has a chronic indwelling Ramon catheter and it was replaced yesterday. As per she has noticed blood in the urine when changing the bag. He also has history of chronic anemia however never been transfused. He denies any hemoptysis, hematemesis, melena, hematochezia or bright blood per rectum. Denies any fever, chills, chest pain, nausea, abdominal pain, diarrhea, constipation or any urinary symptoms except for hematuria. 12/01/2018. Patient stating that he is feeling much better since admission still complaining of generalized pain especially worse in the sacral area where he has a wound VAC because of decubitus ulcer. Patient had hemodialysis yesterday. CTA could not be done however VQ scan was negative for PE. Patient denies having any fever, chills, nausea, vomiting, diarrhea but complaining of chronic constipation likely due to opioid for his chronic pain. 12/02/2018. Acute events overnight. Patient is saturating 97% on room air. Stating that he is feeling much better since admission. Pain especially worse in his sacrum where he has a wound VAC for decubitus ulcer. Denies having any fever, shortness of breath, chest pain, nausea, vomiting patient is chronically constipated due to opiate use for his chronic pain. Reason For Visit: HYPOXIC RESPIRATORY FAILURE,VOLUME OVERLOAD Physical Exam Vital Signs: Temp Pulse Resp BP Pulse Ox 97.8 F 77 16 165/92 H 97 01/27/19 11:38 12/02/18 13:42 12/02/18 13:42 12/02/18 11:38 12/02/18 13:42 Pulse Oximeter Continuous Start: 11/30/18 13:44 Freq: RTQ4 Status: Active Protocol: Document 12/02/18 12:00 [facility] (Rec: 12/02/18 13:21 [facility] [id number]) Pulse Oximetry Assessment Oxygen Saturation (92-100) 97 Oxygen Delivery Method Room Air Equipment Usage Equipment in Use Continuous SpO2 Machine # 1 Intake & Output 12/01/18 12/02/18 12/03/18 06:59 06:59 06:59 Intake Total 366 450 Output Total 1500 400 Balance -1134 50 Weight 77.111 kg 74.2 kg Results Laboratory Results: 12/02/18 05:30 12/02/18 05:30 12/01/18 12/02/18 12/02/18 11:31 05:30 05:30 WBC 4.7 RBC 3.25 L Hgb 7.8 L Hct 24.5 L MCV 75 L MCH 23.9 L MCHC 31.7 L RDW 20.0 H Plt Count 216 Sodium Potassium Chloride Carbon Dioxide Anion Gap BUN Creatinine Cancelled Est GFR ( Amer) Est GFR (Non-Af Amer) Glucose Calcium Magnesium 2.1 Total Bilirubin AST ALT Alkaline Phosphatase Total Protein Albumin Ur 24 Hour Volume Cancelled 12/02/18 05:30 WBC RBC Hgb Hct MCV MCH MCHC RDW Plt Count Sodium 139.4 Potassium 4.3 Chloride 100 Carbon Dioxide 28 Anion Gap 11 BUN 31 H Creatinine 2.10 H Est GFR ( Amer) 39 L Est GFR (Non-Af Amer) 32 L Glucose 228 H Calcium 9.8 Magnesium Total Bilirubin 0.5 AST 10 L ALT 14 L Alkaline Phosphatase 69 Total Protein 6.2 L Albumin 3.8 Ur 24 Hour Volume 11/30/18 10:40 Troponin I < 0.012 NT-Pro-B Natriuret Pep 49442 H Impressions: Lung Scan-VQ NM 11/30/18 00:00 IMPRESSION: Low probability for PE copyright 2011 [employer]- All Rights Reserved Chest X-Ray 11/30/18 09:52 IMPRESSION: Left-sided triple-lumen catheter tip superior vena cava, no pneumothorax. Mild perihilar alveolar infiltrates with Nancy lines from pulmonary edema or fluid overload. Assessment & Plan - Diagnosis (1) Acute exacerbation of CHF (congestive heart failure) Qualifiers: Heart failure type: systolic Qualified Code(s): I50.23 - Acute on chronic systolic (congestive) heart failure Is this a current diagnosis for this admission?: Yes Plan: Likely due to underlying pneumonia/end-stage renal disease. 2D echo on 12/01/2018 showed ejection fraction of 25-30%. Patient is status post hemodialysis. Monitor volume status. (2) Hypoxia Is this a current diagnosis for this admission?: Yes Plan: Resolved. Saturating 97% on room air. Hypoxic respiratory failure likely caused by volume overload secondary to CHF/end-stage renal disease. Continue hemodialysis. Monitor volume status. Continue BiPAP, nebs, IV steroids, empiric antibiotics. (3) Pneumonia Is this a current diagnosis for this admission?: Yes Plan: Day 3 of IV ceftriaxone. Blood cultures from admission +1/2 gram-positive cocci in clusters. No sensitivity available. Likely contamination. Follow-up cultures. (4) Anemia Qualifiers: Anemia type: unspecified type Qualified Code(s): D64.9 - Anemia, unspecified Is this a current diagnosis for this admission?: No Plan: Multifactorial including from ESRD/anemia of chronic disease, multiple myeloma iron deficiency anemia. Iron studies suggestive of iron deficiency anemia. Start on ferrous sulfate. Hemoglobin 7.8 today. H&H tomorrow. Supportive transfusion. (5) ESRD (end stage renal disease) on dialysis Is this a current diagnosis for this admission?: No Plan: On hemodialysis. Nephrology following. Hemodialysis Monday. Right upper extremity fistula. (6) Fluid overload Qualifiers: Hypervolemia type: unspecified Qualified Code(s): E87.70 - Fluid overload, unspecified Is this a current diagnosis for this admission?: Yes Plan: As per problem #1. (7) Myeloma Qualifiers: Multiple myeloma remission status: in relapse Qualified Code(s): C90.02 - Multiple myeloma in relapse Is this a current diagnosis for this admission?: Yes Plan: History of multiple myeloma. Followed by oncology at [facility]. Last visit November 2018. Another follow-up in 6 months. Currently not receiving any treatment for multiple myeloma per . (8) Hematuria Is this a current diagnosis for this admission?: Yes Plan: UA positive for blood. Outpatient urology follow-up. Unfortunately urology consult not available. Pending bladder ultrasound (9) Atrial fibrillation Qualifiers: Atrial fibrillation type: permanent Qualified Code(s): I48.2 - Chronic atrial fibrillation Is this a current diagnosis for this admission?: No Plan: Rate controlled. Continue beta-blockers. Anticoagulated. INR 2.07. Continue Coumadin. Daily INR. INR goal 2-2.5.
[2018-12-02] MEDS: MORPHINE SULFATE 10 MG/ML INJ IV PRN (17:48)
[2018-12-02 22:22] LABS: CREATININE 2.08 mg/dL (0.52-1.25)
[2018-12-02] MEDS: ATORVASTATIN CALCIUM 40 MG TABLET PO SCH (22:58)
[2018-12-02] MEDS: CEFTRIAXONE 1 GM/D5W RTU 1 GM/50 ML RTUPB IV SCH (22:58)
[2018-12-02] MEDS: TRAZODONE HCL 50 MG TABLET PO SCH (22:59)
[2018-12-02] MEDS: ROPINIROLE HCL 0.25 MG TABLET PO SCH (23:00)
[2018-12-02] MEDS: WARFARIN SODIUM 5 MG TABLET PO SCH (23:00)
[2018-12-03] MEDS: LEVALBUTEROL HCL NEB 0.63 MG/3 ML AMPUL NEB SCH ×4 (01:53→20:37)
[2018-12-03] MEDS: METHYLPREDNISOLONE INJ 125 MG/2 ML SDV IV SCH ×3 (05:03→22:41)
[2018-12-03] MEDS: LEVOTHYROXINE SODIUM 0.088 MG TABLET PO SCH (05:03)
[2018-12-03] MEDS: LANSOPRAZOLE 30 MG TAB.RAP.DR PO SCH (05:03)
[2018-12-03 05:54] LABS: ANION GAP 12 (5-19); BLOOD UREA NITROGEN 46 mg/dL (7-20); CALCIUM 9.9 mg/dL (8.4-10.2); CARBON DIOXIDE 27 mmol/L (22-30); CHLORIDE 100 mmol/L (98-107); SODIUM 139.3 mmol/L (137-145)
[2018-12-03 05:55] LABS: GLUCOSE 170 mg/dL (75-110)
[2018-12-03 06:01] LABS: POTASSIUM 4.3 mmol/L (3.6-5.0)
[2018-12-03] MEDS ORDERED: ACETAMINOPHEN 325 MG TABLET PO PRN (07:43)
[2018-12-03] MEDS: FOLIC ACID/VITAMIN B COMP W-C CAPSULE PO SCH (10:32)
[2018-12-03] MEDS: ASPIRIN 81 MG TABLET, ENT COATED PO SCH (10:33)
[2018-12-03] MEDS: SEVELAMER HCL 800 MG TABLET PO SCH ×3 (10:33→16:11)
[2018-12-03] MEDS: FERROUS SULFATE 325 MG TABLET PO SCH (10:33)
[2018-12-03] MEDS: MORPHINE SULFATE SR 15 MG TABLET PO SCH ×2 (10:33→22:47)
[2018-12-03] MEDS: METOPROLOL TARTRATE 25 MG TABLET PO SCH ×2 (10:33→22:45)
[2018-12-03] MEDS: DOCUSATE SODIUM 100 MG CAPSULE PO SCH ×2 (10:33→17:51)
[2018-12-03] MEDS: AMLODIPINE BESYLATE 2.5 MG TABLET PO SCH (10:34)
[2018-12-03] MEDS: FLUOXETINE HCL 20 MG CAPSULE PO SCH (10:34)
[2018-12-03] MEDS: GUAIFENESIN 600 MG TABLET.SA PO SCH ×2 (10:34→22:48)
[2018-12-03] MEDS: SENNOSIDES/DOCUSATE 8.6-50 MG 1 EACH TABLET PO SCH ×2 (10:35→17:51)
[2018-12-03] MEDS: ASCORBIC ACID 500 MG TABLET PO SCH (10:35)
[2018-12-03] MEDS: CHOLECALCIFEROL (D3) 1,000 UNIT TABLET PO SCH (10:35)
[2018-12-03] MEDS: CALCITRIOL 0.25 MCG CAPSULE PO SCH (10:35)
[2018-12-03] MEDS: INSULIN LISPRO 100 UNIT/ML 3 ML VIAL SUBCUT PRN (10:39)
[2018-12-03 12:29] LABS: ABSOLUTE LYMPHOCYTES (AUTO) 0.7 10^3/uL (0.5-4.7); MEAN CORPUSCULAR HEMOGLOBIN 24.6 pg (27.0-33.4); MEAN CORPUSCULAR HGB CONC 32.7 g/dL (32.0-36.0); MEAN CORPUSCULAR VOLUME 75 fl (80-97); TOTAL CELLS COUNTED % (AUTO) 100 %
[2018-12-03 12:35] LABS: ABSOLUTE MONOCYTES (AUTO) 0.3 10^3/uL (0.1-1.4); ABSOLUTE NEUT (AUTO) 7.3 10^3/uL (1.7-8.2); HEMATOCRIT 25.1 % (37.9-51.0); HEMOGLOBIN 8.2 g/dL (13.5-17.0); MONOCYTES % (AUTO) 4.1 % (3-13); PLATELET COUNT 260 10^3/uL (150-450); RED BLOOD COUNT 3.33 10^6/uL (4.35-5.55); RED CELL DISTRIBUTION WIDTH 20.3 % (11.5-14.0); SEGMENTED NEUTROPHILS % (AUTO) 87.9 % (42-78); WHITE BLOOD COUNT 8.3 10^3/uL (4.0-10.5)
[2018-12-03 12:36] LABS: INTERNATIONAL RATION (INR) 2.21; PROTHROMBIN TIME 25.6 SEC (11.4-15.4)
[2018-12-03 12:49] LABS: ALANINE AMINOTRANSFERASE 15 U/L (21-72); ALBUMIN 3.9 g/dL (3.5-5.0); ALKALINE PHOSPHATASE 64 U/L (38-126); ANION GAP 14 (5-19); ASPARTATE AMINO TRANSFERASE 9 U/L (17-59); BILIRUBIN,DIRECT 0.5 mg/dL (0.0-0.4); BILIRUBIN,TOTAL 0.5 mg/dL (0.2-1.3); BLOOD UREA NITROGEN 49 mg/dL (7-20); CALCIUM 10.1 mg/dL (8.4-10.2); CARBON DIOXIDE 27 mmol/L (22-30); CHLORIDE 98 mmol/L (98-107); GLUCOSE 179 mg/dL (75-110); POTASSIUM 4.3 mmol/L (3.6-5.0); SODIUM 138.9 mmol/L (137-145); TOTAL PROTEIN 6.3 g/dL (6.3-8.2)
[2018-12-03] MEDS ORDERED: NORMAL SALINE 1000 ML 1,000 ML IV PRN (14:15)
[2018-12-03] MEDS ORDERED: EPOETIN ALFA INJ 20000 UNIT/1 ML VIAL (RENAL) IV PRN (14:15)
--- NOTE | 2018-12-03 14:28 | PDOC PROGRESS REPORT ---
Subjective Progress Note for:: 12/03/18 Subjective:: I am seeing the patient on dialysis this afternoon. He is tolerating dialysis very well without any problems and he does not really have much complaints. He denies any more shortness of breath and tells me he is feeling much better than when he came in. He denies any chest pains. Reason For Visit: HYPOXIC RESPIRATORY FAILURE,VOLUME OVERLOAD Physical Exam Vital Signs: Temp Pulse Resp BP Pulse Ox 98.4 F 81 16 140/74 H 99 12/03/18 11:34 12/03/18 11:34 12/03/18 11:34 12/03/18 11:34 12/03/18 11:34 Pulse Oximeter Continuous Start: 11/30/18 13:44 Freq: RTQ4 Status: Active Protocol: Document 12/03/18 08:42 [facility] (Rec: 12/03/18 09:44 [facility] [id number]) Pulse Oximetry Assessment Oxygen Saturation (92-100) 98 Oxygen Delivery Method Room Air Fraction of Inspired Oxygen (FIO2) 21 Equipment Usage Equipment in Use Continuous SpO2 Machine # N 1 Intake & Output 12/02/18 12/03/18 12/04/18 06:59 06:59 06:59 Intake Total 450 942 Output Total 400 200 Balance 50 742 Weight 74.2 kg 78.1 kg Vitals during dialysis: Blood pressure 115/70, heart rate of 72, blood flow rate of 350 mL/min and dialysate flow rate of 800 mL/min. Exam: General appearance: PRESENT: no acute distress, cooperative, well-developed, well-nourished Head exam: PRESENT: atraumatic, normocephalic Eye exam: PRESENT: conjunctiva pale, PERRLA. ABSENT: scleral icterus Neck exam: ABSENT: JVD Respiratory exam: PRESENT: Diminished breath sounds. ABSENT: crackles, rales, rhonchi, unlabored, wheezes Cardiovascular exam: PRESENT: Irregular rate rhythm -+S1, +S2. Grade 2/6 systolic murmur GI/Abdominal exam: PRESENT: normal bowel sounds, soft. ABSENT: guarding, mass, tenderness Extremities exam: Trace edema on the right lower extremity but on the left AKA stump there was no edema Neurological exam: PRESENT: alert, awake, oriented to person, place and time. Baseline left hemiplegia Skin exam: PRESENT: dry, warm, Results Laboratory Results: 12/03/18 12:20 12/03/18 12:20 12/01/18 12/03/18 12/03/18 21:30 05:00 12:20 WBC 8.3 RBC 3.33 L Hgb 8.2 L Hct 25.1 L MCV 75 L MCH 24.6 L MCHC 32.7 RDW 20.3 H Plt Count 260 Seg Neutrophils % 87.9 H Lymphocytes % 8.0 L Monocytes % 4.1 Eosinophils % 0.0 Basophils % 0.0 Absolute Neutrophils 7.3 Absolute Lymphocytes 0.7 Absolute Monocytes 0.3 Absolute Eosinophils 0.0 Absolute Basophils 0.0 Sodium 139.3 Potassium 4.3 Chloride 100 Carbon Dioxide 27 Anion Gap 12 BUN 46 H Creatinine 2.08 H 2.47 H Est GFR ( Amer) 32 L Est GFR (Non-Af Amer) 26 L Glucose 170 H Calcium 9.9 Magnesium Total Bilirubin AST ALT Alkaline Phosphatase Total Protein Albumin Ur 24 Hour Volume 340 12/03/18 12:20 WBC RBC Hgb Hct MCV MCH MCHC RDW Plt Count Seg Neutrophils % Lymphocytes % Monocytes % Eosinophils % Basophils % Absolute Neutrophils Absolute Lymphocytes Absolute Monocytes Absolute Eosinophils Absolute Basophils Sodium 138.9 Potassium 4.3 Chloride 98 Carbon Dioxide 27 Anion Gap 14 BUN 49 H Creatinine 2.78 H Est GFR ( Amer) 28 L Est GFR (Non-Af Amer) 23 L Glucose 179 H Calcium 10.1 Magnesium 2.2 Total Bilirubin 0.5 AST 9 L ALT 15 L Alkaline Phosphatase 64 Total Protein 6.3 Albumin 3.9 Ur 24 Hour Volume 11/30/18 10:40 Troponin I < 0.012 NT-Pro-B Natriuret Pep 31604 H Impressions: Lung Scan-VQ NM 11/30/18 00:00 IMPRESSION: Low probability for PE copyright 2011 [employer]- All Rights Reserved Chest X-Ray 11/30/18 09:52 IMPRESSION: Left-sided triple-lumen catheter tip superior vena cava, no pneumothorax. Mild perihilar alveolar infiltrates with Nancy lines from pulmonary edema or fluid overload. Renal Ultrasound 12/02/18 11:00 IMPRESSION: No right-sided hydronephrosis. Urinary bladder unremarkable. Very limited patient cooperation, patient would not allow us to visualize the left kidney Assessment & Plan - Diagnosis (1) ESRD (end stage renal disease) on dialysis Is this a current diagnosis for this admission?: Yes Plan: We will do dialysis today for 3 hours, using the patient's right IJ PermCath, with 2 potassium bath, blood flow rate of 350 mL per minute, dialysate flow rate of 800 mL per minute, ultrafiltration 2-3 L as tolerated, no heparin and Procrit with 20,000 units during dialysis intravenously. Patient will be monitored toward closely during dialysis treatment. Once discharged patient will resume his outpatient scheduled hemodialysis at [facility] [place]. (2) Acute exacerbation of CHF (congestive heart failure) Is this a current diagnosis for this admission?: Yes Plan: Much improved with ultrafiltration during dialysis. (3) Anemia Qualifiers: Anemia type: unspecified type Qualified Code(s): D64.9 - Anemia, unspecified Is this a current diagnosis for this admission?: Yes Plan: Procrit 20,000 units IV during the be given today. (4) Pneumonia Is this a current diagnosis for this admission?: Yes Plan: On antibiotics. (5) Myeloma Qualifiers: Multiple myeloma remission status: in relapse Qualified Code(s): C90.02 - Multiple myeloma in relapse Is this a current diagnosis for this admission?: Yes (6) Atrial fibrillation Qualifiers: Atrial fibrillation type: permanent Qualified Code(s): I48.2 - Chronic atrial fibrillation Is this a current diagnosis for this admission?: Yes - Notes Notes: From nephrology standpoint patient can be discharged today. - Time Time with patient: 15-25 minutes
[2018-12-03] MEDS: HYDROCODONE/ACETAMINOPHEN 5-325 MG TABLET PO PRN (17:51)
[2018-12-03] MEDS: TIOTROPIUM BROMIDE DPI 5 CAP/KIT (18 MCG/CAP) IH SCH (17:56)
[2018-12-03] MEDS ORDERED: VANCOMYCIN HCL 750 MG in DEXTROSE 5%-WATER 250 ML IV SCH (18:00)
--- NOTE | 2018-12-03 18:08 | PDOC DISCHARGE SUMMARY ---
General - Admit/Disc Date/PCP Admission Date/Primary Care Provider: 11/30/18 12:[facility] Discharge Date: 12/03/18 - Discharge Diagnosis (1) Acute exacerbation of CHF (congestive heart failure) Is this a current diagnosis for this admission?: Yes (2) Hypoxia Is this a current diagnosis for this admission?: Yes (3) Pneumonia Is this a current diagnosis for this admission?: Yes (4) Anemia Is this a current diagnosis for this admission?: Yes (5) ESRD (end stage renal disease) on dialysis Is this a current diagnosis for this admission?: Yes (6) Fluid overload Is this a current diagnosis for this admission?: Yes (7) Myeloma Is this a current diagnosis for this admission?: Yes (8) Hematuria Is this a current diagnosis for this admission?: Yes (9) Atrial fibrillation Is this a current diagnosis for this admission?: Yes - Additional Information Discharge Diet: As Tolerated, Diabetic Discharge Activity: Activity As Tolerated, Weigh Daily Home Medications: Albuterol Sulfate [Proair HFA Inhalation Aerosol 8.5 gm MDI] 1 puff IH Q6 11/30/18 Ascorbic Acid [Vitamin C 500 mg Tablet] 500 mg PO DAILY 11/30/18 Aspirin [Ecotrin 81 mg EC Tablet] 81 mg PO DAILY 11/30/18 Atorvastatin Calcium [Lipitor 40 mg Tablet] 40 mg PO QHS 11/30/18 Calcitriol [Rocaltrol 0.25 mcg Capsule] 0.75 mcg PO DAILY 11/30/18 Cholecalciferol (Vitamin D3) [Vitamin D3 2000 unit Tablet] 2,000 unit PO DAILY 11/30/18 Cyclobenzaprine HCl [Flexeril 10 mg Tablet] 10 mg PO Q8HP PRN 11/30/18 Docusate Sodium [Colace 100 mg Capsule] 100 mg PO BID 11/30/18 Ferrous Sulfate [Feosol 325 mg Tablet] 325 mg PO DAILY 11/30/18 Fluoxetine HCl [Prozac 20 mg Capsule] 40 mg PO DAILY 11/30/18 Folic Acid/Vitamin B Comp W-C [Nephrocaps Softgel] 1 mg PO DAILY 11/30/18 Hydrocodone/Acetaminophen [[place] 5-325 mg Tablet] 1 tab PO Q6HP PRN 11/30/18 Levothyroxine Sodium [Synthroid 0.088 mg Tablet] 88 mcg PO Q6AM 11/30/18 Loratadine [Claritin 10 mg Tablet] 10 mg PO DAILY 11/30/18 Metoprolol Tartrate [Lopressor 25 mg Tablet] 12.5 mg PO Q12 11/30/18 Morphine Sulfate [Ms-Contin Sr 15 mg Tablet] 15 mg PO Q12 11/30/18 Na Phos,M-B/Na Phos,Di-Ba [Fleet Enema (Adult) 133 ml] 133 ml FL ASDIR PRN 11/30/18 Ondansetron [Zofran Odt 4 mg Tablet] 4 mg PO Q8HP PRN 11/30/18 Pantoprazole Sodium [Protonix] 40 mg PO DAILY 11/30/18 Polyethylene Glycol 3350 [Miralax Powder 17 gm/Packet] 1 packet PO DAILY 11/30/18 Ropinirole HCl [Requip] 0.5 mg PO QHS 11/30/18 Sennosides [Senna] 8.6 mg PO BID 11/30/18 Sevelamer Carbonate [Renvela] 1,600 mg PO MEALS 11/30/18 Trazodone HCl [Desyrel 50 mg Tablet] 25 mg PO QHS 11/30/18 Vit B Comp No.3/Folic/C/Biotin [Steph-Lou Rx Tablet] 1 each PO DAILY 11/30/18 Warfarin Sodium [Coumadin 5 mg Tablet] 5 mg PO QHS 11/30/18 History of Present Illness History of Present Illness: VERA SPEARS is a 62 year old male past medical history of A. fib currently on Coumadin, COPD/asthma, end-stage renal disease on hemodialysis [Monday, , Monday with Right upper extremity fistula], diabetes mellitus, left above- knee BKA, left MCA ischemic stroke in 2018, stage IV sacral wound ulcer with a wound VAC, metastatic multiple myeloma, opiate dependency due to chronic pain. Currently residing in [place] [facility] since June 19, 2018. Today patient was scheduled to have his left upper extremity fistula removed by vascular surgeon while being transported patient was noted to be hypoxic. Saturating in 80s. His who is at the bedside and is the primary caregiver stating that patient had been complaining of dry nonproductive cough over the last 2 weeks with worsening shortness of breath Patient is stating that he has a very low appetite and has had significant weight loss since last year. Patient has a chronic indwelling Ramon catheter and it was replaced yesterday. As per she has noticed blood in the urine when changing the bag. He also has history of chronic anemia however never been transfused. He denies any hemoptysis, hematemesis, melena, hematochezia or bright blood per rectum. Denies any fever, chills, chest pain, nausea, abdominal pain, diarrhea, constipation or any urinary symptoms except for hematuria. 12/01/2018. Patient stating that he is feeling much better since admission still complaining of generalized pain especially worse in the sacral area where he has a wound VAC because of decubitus ulcer. Patient had hemodialysis yesterday. CTA could not be done however VQ scan was negative for PE. Patient denies having any fever, chills, nausea, vomiting, diarrhea but complaining of chronic constipation likely due to opioid for his chronic pain. 12/02/2018. Acute events overnight. Patient is saturating 97% on room air. Stating that he is feeling much better since admission. Pain especially worse in his sacrum where he has a wound VAC for decubitus ulcer. Denies having any fever, shortness of breath, chest pain, nausea, vomiting patient is chronically constipated due to opiate use for his chronic pain. Hospital Course Hospital Course: Assessment & Plan (1) Acute exacerbation of CHF (congestive heart failure) Likely due to underlying pneumonia/end-stage renal disease. 2D echo on 12/01/2018 showed ejection fraction of 25-30%. Patient is status post hemodialysis. Monitor volume status. (2) Hypoxia Resolved. Saturating 97% on room air. Hypoxic respiratory failure likely caused by volume overload secondary to CHF/end-stage renal disease. Continue hemodialysis. Monitor volume status. Continue BiPAP, nebs, IV steroids, empiric antibiotics. (3) Pneumonia Received 4 days of total IV antibiotics. Blood cultures from admission +1/2 gram-positive cocci in clusters likely contamination. Repeat blood cultures remain negative. (4) Anemia Multifactorial including from ESRD/anemia of chronic disease, multiple myeloma iron deficiency anemia. Iron studies suggestive of iron deficiency anemia. Start on ferrous sulfate. Hemoglobin 7.8 today. H&H tomorrow. Supportive transfusion. (5) ESRD (end stage renal disease) on dialysis On hemodialysis. Nephrology following. Hemodialysis Monday. (6) Fluid overload As per problem #1. (7) Myeloma History of multiple myeloma. Followed by oncology at [facility]. Last visit November 2018. Another follow-up in 6 months. Currently not receiving any treat ment for multiple myeloma per . (8) Hematuria UA positive for blood. Outpatient urology follow-up. Unfortunately urology consult not available. Pending bladder ultrasound (9) Atrial fibrillation Rate controlled. Continue beta-blockers. Anticoagulated. INR 2.07. Continue Coumadin. Daily INR. INR goal 2-2.5. Physical Exam Vital Signs: Temp Pulse Resp BP Pulse Ox 98.4 F 72 14 140/74 H 97 12/03/18 11:34 12/03/18 14:13 12/03/18 14:13 12/03/18 11:34 12/03/18 16:00 Pulse Oximeter Continuous Start: 11/30/18 13:44 Freq: RTQ4 Status: Active Protocol: Document 12/03/18 16:00 NSM (Rec: 12/03/18 16:42 NSM [id number]) Pulse Oximetry Assessment Oxygen Saturation (92-100) 97 Oxygen Delivery Method Room Air Equipment Usage Equipment Standby Continuous SpO2 Machine # [id number] Intake & Output 12/02/18 12/03/18 12/04/18 06:59 06:59 06:59 Intake Total 450 942 Output Total 261 370 3816 Balance 50 742 -1900 Weight 74.2 kg 78.1 kg General appearance: PRESENT: no acute distress, well-developed, well-nourished Respiratory exam: PRESENT: clear to auscultation mac. ABSENT: rales, rhonchi, wheezes GI/Abdominal exam: PRESENT: normal bowel sounds, soft. ABSENT: distended, guarding, mass, organolmegaly, rebound, tenderness Neurological exam: PRESENT: alert, awake, oriented to person, oriented to place, oriented to time, oriented to situation, CN II-XII grossly intact, motor sensory deficit Results Laboratory Results: 12/03/18 12:20 12/03/18 12:20 12/01/18 12/03/18 12/03/18 21:30 05:00 12:20 WBC 8.3 RBC 3.33 L Hgb 8.2 L Hct 25.1 L MCV 75 L MCH 24.6 L MCHC 32.7 RDW 20.3 H Plt Count 260 Seg Neutrophils % 87.9 H Lymphocytes % 8.0 L Monocytes % 4.1 Eosinophils % 0.0 Basophils % 0.0 Absolute Neutrophils 7.3 Absolute Lymphocytes 0.7 Absolute Monocytes 0.3 Absolute Eosinophils 0.0 Absolute Basophils 0.0 Sodium 139.3 Potassium 4.3 Chloride 100 Carbon Dioxide 27 Anion Gap 12 BUN 46 H Creatinine 2.08 H 2.47 H Est GFR ( Amer) 32 L Est GFR (Non-Af Amer) 26 L Glucose 170 H Calcium 9.9 Magnesium Total Bilirubin AST ALT Alkaline Phosphatase Total Protein Albumin Ur 24 Hour Volume 340 12/03/18 12:20 WBC RBC Hgb Hct MCV MCH MCHC RDW Plt Count Seg Neutrophils % Lymphocytes % Monocytes % Eosinophils % Basophils % Absolute Neutrophils Absolute Lymphocytes Absolute Monocytes Absolute Eosinophils Absolute Basophils Sodium 138.9 Potassium 4.3 Chloride 98 Carbon Dioxide 27 Anion Gap 14 BUN 49 H Creatinine 2.78 H Est GFR ( Amer) 28 L Est GFR (Non-Af Amer) 23 L Glucose 179 H Calcium 10.1 Magnesium 2.2 Total Bilirubin 0.5 AST 9 L ALT 15 L Alkaline Phosphatase 64 Total Protein 6.3 Albumin 3.9 Ur 24 Hour Volume 11/30/18 10:40 Troponin I < 0.012 NT-Pro-B Natriuret Pep 18522 H Impressions: Lung Scan-VQ NM 11/30/18 00:00 IMPRESSION: Low probability for PE copyright 2011 [employer]- All Rights Reserved Chest X-Ray 11/30/18 09:52 IMPRESSION: Left-sided triple-lumen catheter tip superior vena cava, no pneumothorax. Mild perihilar alveolar infiltrates with Nancy lines from pulmonary edema or fluid overload. Renal Ultrasound 12/02/18 11:00 IMPRESSION: No right-sided hydronephrosis. Urinary bladder unremarkable. Very limited patient cooperation, patient would not allow us to visualize the left kidney Qualifiers - * PATIENT BEING DISCHARGED WITH ANY OF THE FOLLOWING DIAGNOSIS: No
--- NOTE | 2018-12-03 18:54 | PDOC PROGRESS REPORT ---
Subjective Progress Note for:: 12/03/18 Subjective:: VERA SPEARS is a 62 year old male past medical history of A. 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 Currently residing in [facility] since June 19, 2018. Today patient was scheduled to have his left upper extremity fistula removed by vascular surgeon while being transported patient was noted to be hypoxic. Saturating in 80s. His who is at the bedside and is the primary caregiver stating that patient had been complaining of dry nonproductive cough over the last 2 weeks with worsening shortness of breath Patient is stating that he has a very low appetite and has had significant weight loss since last year. Patient has a chronic indwelling Ramon catheter and it was replaced yesterday. As per she has noticed blood in the urine when changing the bag. He also has history of chronic anemia however never been transfused. He denies any hemoptysis, hematemesis, melena, hematochezia or bright blood per rectum. Denies any fever, chills, chest pain, nausea, abdominal pain, diarrhea, constipation or any urinary symptoms except for hematuria. 12/01/2018. Patient stating that he is feeling much better since admission still complaining of generalized pain especially worse in the sacral area where he has a wound VAC because of decubitus ulcer. Patient had hemodialysis yesterday. CTA could not be done however VQ scan was negative for PE. Patient denies having any fever, chills, nausea, vomiting, diarrhea but complaining of chronic constipation likely due to opioid for his chronic pain. 12/02/2018. Acute events overnight. Patient is saturating 97% on room air. Stating that he is feeling much better since admission. Pain especially worse in his sacrum where he has a wound VAC for decubitus ulcer. Denies having any fever, shortness of breath, chest pain, nausea, vomiting patient is chronically constipated due to opiate use for his chronic pain. 11/25/2018. No acute events overnight. Patient saturating in high 90s on room air. Cultures are still negative. Patient stating that he is feeling much better. Patient is status post hemodialysis today. Reason For Visit: HYPOXIC RESPIRATORY FAILURE,VOLUME OVERLOAD Physical Exam Vital Signs: Temp Pulse Resp BP Pulse Ox 98.4 F 72 14 140/74 H 97 12/03/18 11:34 12/03/18 14:13 12/03/18 14:13 12/03/18 11:34 12/03/18 16:00 Pulse Oximeter Continuous Start: 11/30/18 13:44 Freq: RTQ4 Status: Active Protocol: Document 12/03/18 16:00 NSM (Rec: 12/03/18 16:42 NSM [id number]) Pulse Oximetry Assessment Oxygen Saturation (92-100) 97 Oxygen Delivery Method Room Air Equipment Usage Equipment Standby Continuous SpO2 Machine # [id number] Intake & Output 12/02/18 12/03/18 12/04/18 06:59 06:59 06:59 Intake Total 643 789 0873 Output Total 772 856 2582 Balance 50 742 -526 Weight 74.2 kg 78.1 kg General appearance: PRESENT: no acute distress, well-developed, well-nourished Head exam: PRESENT: atraumatic, normocephalic Respiratory exam: PRESENT: clear to auscultation mac. ABSENT: rales, rhonchi, wheezes GI/Abdominal exam: PRESENT: normal bowel sounds, soft. ABSENT: distended, guarding, mass, organolmegaly, rebound, tenderness Neurological exam: PRESENT: alert, awake, oriented to person, oriented to time, CN II-XII grossly intact, motor sensory deficit Results Laboratory Results: 12/03/18 12:20 12/03/18 12:20 12/01/18 12/03/18 12/03/18 21:30 05:00 12:20 WBC 8.3 RBC 3.33 L Hgb 8.2 L Hct 25.1 L MCV 75 L MCH 24.6 L MCHC 32.7 RDW 20.3 H Plt Count 260 Seg Neutrophils % 87.9 H Lymphocytes % 8.0 L Monocytes % 4.1 Eosinophils % 0.0 Basophils % 0.0 Absolute Neutrophils 7.3 Absolute Lymphocytes 0.7 Absolute Monocytes 0.3 Absolute Eosinophils 0.0 Absolute Basophils 0.0 Sodium 139.3 Potassium 4.3 Chloride 100 Carbon Dioxide 27 Anion Gap 12 BUN 46 H Creatinine 2.08 H 2.47 H Est GFR ( Amer) 32 L Est GFR (Non-Af Amer) 26 L Glucose 170 H Calcium 9.9 Magnesium Total Bilirubin AST ALT Alkaline Phosphatase Total Protein Albumin Ur 24 Hour Volume 340 12/03/18 12:20 WBC RBC Hgb Hct MCV MCH MCHC RDW Plt Count Seg Neutrophils % Lymphocytes % Monocytes % Eosinophils % Basophils % Absolute Neutrophils Absolute Lymphocytes Absolute Monocytes Absolute Eosinophils Absolute Basophils Sodium 138.9 Potassium 4.3 Chloride 98 Carbon Dioxide 27 Anion Gap 14 BUN 49 H Creatinine 2.78 H Est GFR ( Amer) 28 L Est GFR (Non-Af Amer) 23 L Glucose 179 H Calcium 10.1 Magnesium 2.2 Total Bilirubin 0.5 AST 9 L ALT 15 L Alkaline Phosphatase 64 Total Protein 6.3 Albumin 3.9 Ur 24 Hour Volume 11/30/18 10:40 Troponin I < 0.012 NT-Pro-B Natriuret Pep 03761 H Impressions: Lung Scan-VQ NM 11/30/18 00:00 IMPRESSION: Low probability for PE copyright 2011 [employer]- All Rights Reserved Chest X-Ray 11/30/18 09:52 IMPRESSION: Left-sided triple-lumen catheter tip superior vena cava, no pneumothorax. Mild perihilar alveolar infiltrates with Nancy lines from pulmonary edema or fluid overload. Renal Ultrasound 12/02/18 11:00 IMPRESSION: No right-sided hydronephrosis. Urinary bladder unremarkable. Very limited patient cooperation, patient would not allow us to visualize the left kidney Assessment & Plan - Diagnosis (1) Acute exacerbation of CHF (congestive heart failure) Qualifiers: Heart failure type: systolic Qualified Code(s): I50.23 - Acute on chronic systolic (congestive) heart failure Is this a current diagnosis for this admission?: Yes Plan: Likely due to underlying pneumonia/end-stage renal disease. 2D echo on 12/01/2018 showed ejection fraction of 25-30%. Patient is status post hemodialysis. Monitor volume status. (2) Hypoxia Is this a current diagnosis for this admission?: Yes Plan: Resolved. Saturating 97% on room air. Hypoxic respiratory failure likely caused by volume overload secondary to CHF/end-stage renal disease. Continue hemodialysis. Monitor volume status. Continue BiPAP, nebs, IV steroids, empiric antibiotics. (3) Pneumonia Is this a current diagnosis for this admission?: Yes Plan: Day 4 of IV ceftriaxone. Blood cultures from admission +1/2 gram-positive cocci in clusters. No sensitivity available. Likely contamination. Follow-up cultures. (4) Anemia Qualifiers: Anemia type: unspecified type Qualified Code(s): D64.9 - Anemia, unspecified Is this a current diagnosis for this admission?: Yes Plan: Multifactorial including from ESRD/anemia of chronic disease, multiple myeloma iron deficiency anemia. Iron studies suggestive of iron deficiency anemia. Start on ferrous sulfate. Hemoglobin 8.2 today. H&H tomorrow. Supportive transfusion. (5) ESRD (end stage renal disease) on dialysis Is this a current diagnosis for this admission?: Yes Plan: On hemodialysis. Nephrology following. Hemodialysis Monday. Right upper extremity fistula. (6) Fluid overload Qualifiers: Hypervolemia type: unspecified Qualified Code(s): E87.70 - Fluid overload, unspecified Is this a current diagnosis for this admission?: Yes Plan: As per problem #1. (7) Myeloma Qualifiers: Multiple myeloma remission status: in relapse Qualified Code(s): C90.02 - Multiple myeloma in relapse Is this a current diagnosis for this admission?: Yes Plan: History of multiple myeloma. Followed by oncology at [facility]. Last visit November 2018. Another follow-up in 6 months. Currently not receiving any treat ment for multiple myeloma per . (8) Hematuria Is this a current diagnosis for this admission?: Yes Plan: UA positive for blood. Outpatient urology follow-up. Unfortunately urology consult not available. Pending bladder ultrasound (9) Atrial fibrillation Qualifiers: Atrial fibrillation type: permanent Qualified Code(s): I48.2 - Chronic atrial fibrillation Is this a current diagnosis for this admission?: Yes Plan: Rate controlled. Continue beta-blockers. Anticoagulated. INR 2.21. Continue Coumadin. Daily INR. INR goal 2-2.5.
[2018-12-03] MEDS ORDERED: FAMOTIDINE 20 MG TABLET PO SCH (22:00)
[2018-12-03] MEDS: WARFARIN SODIUM 5 MG TABLET PO SCH (22:40)
[2018-12-03] MEDS: CEFTRIAXONE 1 GM/D5W RTU 1 GM/50 ML RTUPB IV SCH (22:42)
[2018-12-03] MEDS: TRAZODONE HCL 50 MG TABLET PO SCH (22:42)
[2018-12-03] MEDS: NYSTATIN TOPICAL POWDER 15 GM TP SCH ×2 (22:43→22:48)
[2018-12-03] MEDS: ATORVASTATIN CALCIUM 40 MG TABLET PO SCH (22:44)
[2018-12-03] MEDS: ROPINIROLE HCL 0.25 MG TABLET PO SCH (22:49)
[2018-12-04] MEDS: LEVALBUTEROL HCL NEB 0.63 MG/3 ML AMPUL NEB SCH ×3 (02:32→14:03)
[2018-12-04] MEDS: NYSTATIN TOPICAL POWDER 15 GM TP SCH ×2 (06:28→13:07)
[2018-12-04] MEDS: LEVOTHYROXINE SODIUM 0.088 MG TABLET PO SCH (06:28)
[2018-12-04] MEDS: LANSOPRAZOLE 30 MG TAB.RAP.DR PO SCH (06:28)
[2018-12-04] MEDS: METHYLPREDNISOLONE INJ 125 MG/2 ML SDV IV SCH (06:29)
[2018-12-04 06:45] LABS: ABSOLUTE LYMPHOCYTES (AUTO) 0.6 10^3/uL (0.5-4.7); ABSOLUTE MONOCYTES (AUTO) 0.2 10^3/uL (0.1-1.4); HEMATOCRIT 24.8 % (37.9-51.0); HEMOGLOBIN 8.1 g/dL (13.5-17.0); LYMPHOCYTES % (AUTO) 10.2 % (13-45); MEAN CORPUSCULAR HEMOGLOBIN 24.6 pg (27.0-33.4); MEAN CORPUSCULAR HGB CONC 32.6 g/dL (32.0-36.0); MEAN CORPUSCULAR VOLUME 75 fl (80-97); MONOCYTES % (AUTO) 2.6 % (3-13); PLATELET COUNT 201 10^3/uL (150-450); RED BLOOD COUNT 3.29 10^6/uL (4.35-5.55); RED CELL DISTRIBUTION WIDTH 20.8 % (11.5-14.0); SEGMENTED NEUTROPHILS % (AUTO) 87.2 % (42-78); TOTAL CELLS COUNTED % (AUTO) 100 %; WHITE BLOOD COUNT 5.8 10^3/uL (4.0-10.5)
[2018-12-04 06:51] LABS: INTERNATIONAL RATION (INR) 2.23; PROTHROMBIN TIME 25.8 SEC (11.4-15.4)
[2018-12-04 07:05] LABS: ALANINE AMINOTRANSFERASE 14 U/L (21-72); ALBUMIN 3.6 g/dL (3.5-5.0); ALKALINE PHOSPHATASE 63 U/L (38-126); ANION GAP 13 (5-19); ASPARTATE AMINO TRANSFERASE 9 U/L (17-59); BILIRUBIN,DIRECT 0.4 mg/dL (0.0-0.4); BILIRUBIN,TOTAL 0.4 mg/dL (0.2-1.3); BLOOD UREA NITROGEN 37 mg/dL (7-20); CALCIUM 9.7 mg/dL (8.4-10.2); CARBON DIOXIDE 29 mmol/L (22-30); CHLORIDE 99 mmol/L (98-107); GLUCOSE 222 mg/dL (75-110); POTASSIUM 3.6 mmol/L (3.6-5.0); SODIUM 140.7 mmol/L (137-145); TOTAL PROTEIN 5.9 g/dL (6.3-8.2)
[2018-12-04] MEDS: SEVELAMER HCL 800 MG TABLET PO SCH ×3 (08:09→18:08)
[2018-12-04] MEDS ORDERED: CEFTRIAXONE 1 GM/D5W RTU 1 GM/50 ML RTUPB IV SCH (10:00)
[2018-12-04] MEDS ORDERED: NYSTATIN TOPICAL POWDER 15 GM TP SCH (10:00)
[2018-12-04] MEDS: FOLIC ACID/VITAMIN B COMP W-C CAPSULE PO SCH (10:41)
[2018-12-04] MEDS: ASPIRIN 81 MG TABLET, ENT COATED PO SCH (10:42)
[2018-12-04] MEDS: FERROUS SULFATE 325 MG TABLET PO SCH (10:42)
[2018-12-04] MEDS: SENNOSIDES/DOCUSATE 8.6-50 MG 1 EACH TABLET PO SCH ×2 (10:42→18:08)
[2018-12-04] MEDS: MORPHINE SULFATE SR 15 MG TABLET PO SCH (10:43)
[2018-12-04] MEDS: METOPROLOL TARTRATE 25 MG TABLET PO SCH (10:43)
[2018-12-04] MEDS: ASCORBIC ACID 500 MG TABLET PO SCH (10:43)
[2018-12-04] MEDS: DOCUSATE SODIUM 100 MG CAPSULE PO SCH ×2 (10:44→18:08)
[2018-12-04] MEDS: CALCITRIOL 0.25 MCG CAPSULE PO SCH (10:44)
[2018-12-04] MEDS: FLUOXETINE HCL 20 MG CAPSULE PO SCH (10:45)
[2018-12-04] MEDS: GUAIFENESIN 600 MG TABLET.SA PO SCH (10:45)
[2018-12-04] MEDS: AMLODIPINE BESYLATE 2.5 MG TABLET PO SCH (10:45)
[2018-12-04] MEDS: TIOTROPIUM BROMIDE DPI 5 CAP/KIT (18 MCG/CAP) IH SCH (10:46)
[2018-12-04] MEDS: INSULIN LISPRO 100 UNIT/ML 3 ML VIAL SUBCUT SCH ×2 (10:46→18:08)
[2018-12-04] MEDS: CHOLECALCIFEROL (D3) 1,000 UNIT TABLET PO SCH (10:48)
[2018-12-04] MEDS: HYDROCODONE/ACETAMINOPHEN 5-325 MG TABLET PO PRN (11:56)
--- NOTE | 2018-12-04 14:15 | Progress Note ---
Provider Note Provider Note: ID Consult Note Asked to review patient's chart by Dr Nicholson; spoke with him briefly via telephone. Pt not seen or examined. Mr Mendez is a 62 year old man with ESRD on HD, AF on coumadin, COPD/asthma, DM, and L BKA, L MCA ischemic stroke, sacral wound, chronic pain and MM who p/w SOB and dry cough for two weeks. He had no fever, and was hypoxic with decreased breath sounds and crackles on exam, which was felt most likely to be due to pulmonary edema in setting of CHF exacerbation. He had no leukocytosis. [place] [address]. However, community acquired pneumonia was also considered a possibility, and he was given Rocephin (today is day 5). He The patient has improved to the point that he is deemed ready for discharge. His admission blood cultures grew Staphylococcus epidermidis from the set drawn off of a line on admission. The other set drawn peripherally had no growth. He had repeat blood cultures drawn off of the line and also peripherally on 12/02/18 that appears to be before he was given vancomycin IV, which have shown no growth. impression/recommendations 1. Pulmonary edema from CHF exacerbation, less likely CAP. Today is day 5 of Rocephin. Typically 5-7 days duration should be sufficient. Consider stopping after today's dose of Rocephin. 2. Staphylococcus epidermidis pseudobacteremia - pt has had this isolated from a line draw with no corresponding peripheral blood culture positivity or clinical context where Staphylococcus epidermidis would be expected to be a pathogen. Staph epi is a common skin contaminant and generally repeated isolation or, in the setting of a line, isolation from both the peripherally drawn set and the line would be needed to demonstrate this as a true bacteremia. I am not aware of any other patient history (e.g. no prosthetic heart valve or ICD/PPM) that might predispose the patient to a true coagulase negative Staph endovascular infection, and it is reassuring that repeat blood cultures (from the line and peripherally) are negative x48h that appear to have been drawn prior to IV vancomycin. For this, no further antimicrobial therapy appears to be indicated. Recommend discontinuing IV vancomycin. Roel Islas MD [facility] Infectious Diseases pager [phone]
--- NOTE | 2018-12-04 14:28 | PDOC TRANSFER SUMMARY ---
General Admission Date/PCP: 11/30/18 12:56 [facility] - Transfer Diagnosis (1) Acute exacerbation of CHF (congestive heart failure) Is this a current diagnosis for this admission?: Yes (2) Hypoxia Is this a current diagnosis for this admission?: Yes (3) Pneumonia Is this a current diagnosis for this admission?: Yes (4) Anemia Is this a current diagnosis for this admission?: Yes (5) ESRD (end stage renal disease) on dialysis Is this a current diagnosis for this admission?: Yes (6) Fluid overload Is this a current diagnosis for this admission?: Yes (7) Myeloma Is this a current diagnosis for this admission?: Yes (8) Hematuria Is this a current diagnosis for this admission?: Yes (9) Atrial fibrillation Is this a current diagnosis for this admission?: Yes (10) Staphylococcus epidermidis bacteremia Is this a current diagnosis for this admission?: Yes - Transfer Medications Home Medications: Albuterol Sulfate [Proair HFA Inhalation Aerosol 8.5 gm MDI] 1 puff IH Q6 11/30/18 Ascorbic Acid [Vitamin C 500 mg Tablet] 500 mg PO DAILY 11/30/18 Aspirin [Ecotrin 81 mg EC Tablet] 81 mg PO DAILY 11/30/18 Atorvastatin Calcium [Lipitor 40 mg Tablet] 40 mg PO QHS 11/30/18 Calcitriol [Rocaltrol 0.25 mcg Capsule] 0.75 mcg PO DAILY 11/30/18 Cholecalciferol (Vitamin D3) [Vitamin D3 2000 unit Tablet] 2,000 unit PO DAILY 11/30/18 Cyclobenzaprine HCl [Flexeril 10 mg Tablet] 10 mg PO Q8HP PRN 11/30/18 Docusate Sodium [Colace 100 mg Capsule] 100 mg PO BID 11/30/18 Ferrous Sulfate [Feosol 325 mg Tablet] 325 mg PO DAILY 11/30/18 Fluoxetine HCl [Prozac 20 mg Capsule] 40 mg PO DAILY 11/30/18 Folic Acid/Vitamin B Comp W-C [Nephrocaps Softgel] 1 mg PO DAILY 11/30/18 Hydrocodone/Acetaminophen [[place] 5-325 mg Tablet] 1 tab PO Q6HP PRN 11/30/18 Levothyroxine Sodium [Synthroid 0.088 mg Tablet] 88 mcg PO Q6AM 11/30/18 Loratadine [Claritin 10 mg Tablet] 10 mg PO DAILY 11/30/18 Metoprolol Tartrate [Lopressor 25 mg Tablet] 12.5 mg PO Q12 11/30/18 Morphine Sulfate [Ms-Contin Sr 15 mg Tablet] 15 mg PO Q12 11/30/18 Na Phos,M-B/Na Phos,Di-Ba [Fleet Enema (Adult) 133 ml] 133 ml TN ASDIR PRN 11/30/18 Ondansetron [Zofran Odt 4 mg Tablet] 4 mg PO Q8HP PRN 11/30/18 Pantoprazole Sodium [Protonix] 40 mg PO DAILY 11/30/18 Polyethylene Glycol 3350 [Miralax Powder 17 gm/Packet] 1 packet PO DAILY 11/30/18 Ropinirole HCl [Requip] 0.5 mg PO QHS 11/30/18 Sennosides [Senna] 8.6 mg PO BID 11/30/18 Sevelamer Carbonate [Renvela] 1,600 mg PO MEALS 11/30/18 Trazodone HCl [Desyrel 50 mg Tablet] 25 mg PO QHS 11/30/18 Vit B Comp No.3/Folic/C/Biotin [Steph-Lou Rx Tablet] 1 each PO DAILY 11/30/18 Warfarin Sodium [Coumadin 5 mg Tablet] 5 mg PO QHS 11/30/18 Transfer Medications: Current Medications Acetaminophen (Tylenol 325 Mg Tablet) 650 mg PO Q6HP PRN PRN Reason: pain or temp greater than 101F Stop: 01/02/19 07:42 Hydrocodone Bitart/Acetaminophen ([place] 5-325 Mg Tablet) 1 tab PO Q6HP PRN PRN Reason: FOR PAIN Stop: 12/07/18 18:43 Last Admin: 12/04/18 11:56 Dose: 1 tab Documented by: Amlodipine Besylate (Norvasc 2.5 Mg Tablet) 2.5 mg PO DAILY [facility] Stop: 01/01/19 09:59 Last Admin: 12/04/18 10:45 Dose: 2.5 mg Documented by: Ascorbic Acid (Vitamin C 500 Mg Tablet) 500 mg PO DAILY [facility] Stop: 12/31/18 09:59 Last Admin: 12/04/18 10:43 Dose: 500 mg Documented by: Aspirin (Ecotrin 81 Mg Ec Tablet) 81 mg PO DAILY [facility] Stop: 12/31/18 09:59 Last Admin: 12/04/18 10:42 Dose: 81 mg Documented by: Atorvastatin Calcium (Lipitor 40 Mg Tablet) 40 mg PO QHS [facility] Stop: 12/30/18 21:59 Last Admin: 12/03/18 22:44 Dose: 40 mg Documented by: Calcitriol (Rocaltrol 0.25 Mcg Capsule) 0.75 mcg PO DAILY TERRE[facility] Stop: 12/31/18 09:59 Last Admin: 12/04/18 10:44 Dose: 0.75 mcg Documented by: Cholecalciferol (Vitamin D3 1000 Unit Tablet) 2,000 unit PO DAILY TERRELL Stop: 12/31/18 09:59 Last Admin: 12/04/18 10:48 Dose: 2,000 unit Documented by: Cyclobenzaprine HCl (Flexeril 10 Mg Tablet) 10 mg PO Q8HP PRN PRN Reason: MUSCLE SPASMS Stop: 12/30/18 18:43 Last Admin: 12/02/18 14:40 Dose: 10 mg Documented by: Dextrose (Dextrose Inj 50% Syringe (25 Gm/50 Ml)) 12.5 gm IV PRN PRN; Protocol PRN Reason: FOR BG 50-69 IN ALERT PATIENT Stop: 01/01/19 10:59 Dextrose (Dextrose Inj 50% Syringe (25 Gm/50 Ml)) 25 gm IV PRN PRN; Protocol Stop: 01/01/19 10:59 Docusate Sodium (Colace 100 Mg Capsule) 100 mg PO BID [facility] Stop: 12/31/18 09:59 Last Admin: 12/04/18 10:44 Dose: 100 mg Documented by: Famotidine (Pepcid 20 Mg Tablet) 20 mg PO QHS TERRELL Stop: 01/02/19 21:59 Last Admin: 12/03/18 22:49 Dose: 20 mg Documented by: Ferrous Sulfate (Feosol 325 Mg Tablet) 325 mg PO DAILY [facility] Stop: 12/31/18 09:59 Last Admin: 12/04/18 10:42 Dose: 325 mg Documented by: Fluoxetine HCl (Prozac 20 Mg Capsule) 40 mg PO DAILY [facility] Stop: 12/31/18 09:59 Last Admin: 12/04/18 10:45 Dose: 40 mg Documented by: Glucagon (Glucagen Inj 1 Mg Vial) 1 mg IM PRN PRN; Protocol PRN Reason: EVALUATE FOR BG < 70 Stop: 01/01/19 10:59 Glucose (Glutose 40% Gel 15 Gm Tube) 15 gm PO PRN PRN; Protocol PRN Reason: FOR BG 50-69 IN ALERT PATIENT Stop: 01/01/19 10:59 Glucose (Glutose 40% Gel 15 Gm Tube) 30 gm PO PRN PRN; Protocol PRN Reason: FOR BG < 50 IN ALERT PATIENT Stop: 01/01/19 10:59 Guaifenesin (Mucinex Sr 600 Mg Tablet.Sa) 1,200 mg PO Q12 [facility] Stop: 12/30/18 21:59 Last Admin: 12/04/18 10:45 Dose: 1,200 mg Documented by: Vancomycin HCl 750 mg/ (Dextrose) 250 mls @ 166.667 mls/hr IV PDIA [facility] Stop: 12/10/18 17:59 Last Infusion: 12/03/18 19:15 Dose: Infused Documented by: Ceftriaxone Sodium/Dextrose (Rocephin Rtu 1 Gm/D5w 50 Ml Premix) 1 gm in 50 mls @ 100 mls/hr IV DAILY [facility] Stop: 12/11/18 09:59 Last Infusion: 12/04/18 11:51 Dose: Infused Documented by: Influenza Virus Vaccine Quadrival (Fluarix Adlt Quad Vac 0.5 Ml Syr) 0.5 ml IM .DISCHARGE PRN PRN Reason: THIS MED IS NOT "PRN" Stop: 12/31/18 21:43 Insulin Human Lispro (Humalog Insulin 100 Unit/1 Ml 3 Ml Vial) 0 - 12 unit [facility]BCUT [facility]; Protocol Stop: 01/01/19 10:59 Last Admin: 12/04/18 10:46 Dose: 4 unit Documented by: Lansoprazole (Prevacid 30 Mg Odt Tablet) 30 mg PO Q6AM [facility] Stop: 12/31/18 05:59 Last Admin: 12/04/18 06:28 Dose: 30 mg Documented by: Levalbuterol HCl (Xopenex Neb 0.63 Mg/3 Ml Ampul) 0.63 mg NEB RTQ6 [facility] Stop: 12/30/18 13:59 Last Admin: 12/04/18 14:03 Dose: 0.63 mg Documented by: Levothyroxine Sodium (Synthroid 0.088 Mg Tablet) 0.088 mg PO Q6AM [facility] Stop: 12/31/18 05:59 Last Admin: 12/04/18 06:28 Dose: 0.088 mg Documented by: Metoprolol Tartrate (Lopressor 25 Mg Tablet) 25 mg PO Q12 TERRE[facility] Stop: 12/31/18 21:59 Last Admin: 12/04/18 10:43 Dose: 25 mg Documented by: Morphine Sulfate (Ms-Contin Sr 15 Mg Tablet) 15 mg PO Q12 [facility] Stop: 12/07/18 21:59 Last Admin: 12/04/18 10:43 Dose: 15 mg Documented by: Morphine Sulfate (Morphine 10 Mg/Ml Inj) 2 mg IV Q4HP PRN PRN Reason: FOR PAIN SCALE 3-4 Stop: 12/07/18 18:45 Last Admin: 12/02/18 17:48 Dose: 2 mg Documented by: Multivit/Ca Carb/B Cmplx/FA/Prenat (Nephrocaps Multiple Vitamin Capsule) 1 cap PO DAILY [facility] Stop: 12/31/18 09:59 Last Admin: 12/04/18 10:41 Dose: 1 cap Documented by: Nystatin (Mycostatin Topical Powder 15 Gm) 1 applic TP Q8 [facility] Stop: 12/10/18 19:29 Last Admin: 12/04/18 13:07 Dose: 1 applic Documented by: Ondansetron HCl (Zofran Odt 4 Mg Tablet) 4 mg PO Q8HP PRN PRN Reason: FOR NAUSEA/VOMITING Stop: 12/30/18 18:43 Ropinirole HCl (Requip 0.25 Mg Tablet) 0.5 mg PO QHS [facility] Stop: 12/30/18 21:59 Last Admin: 12/03/18 22:49 Dose: 0.5 mg Documented by: Senna/Docusate Sodium (Senna Plus Tablet) 1 each PO BID [facility] Stop: 12/31/18 09:59 Last Admin: 12/04/18 10:42 Dose: 1 each Documented by: Sevelamer HCl (Renagel 800 Mg Tablet) 1,600 mg PO MEALS [facility] Stop: 12/31/18 07:59 Last Admin: 12/04/18 11:56 Dose: 1,600 mg Documented by: Sodium Chloride (Saline Flush 2.5 Ml Monoject Prefil Syrin) 2.5 ml IV Q8 [facility] Stop: 12/30/18 13:59 Last Admin: 12/04/18 13:07 Dose: Not Given Documented by: Tiotropium [place] (Spiriva Handihaler 5 Cap/Kit (18 Mcg/Cap)) 1 cap IH DAILY [facility] Stop: 12/31/18 09:59 Last Admin: 12/04/18 10:46 Dose: 1 cap Documented by: Trazodone HCl (Desyrel 50 Mg Tablet) 25 mg PO QHS TER[facility] Stop: 12/30/18 21:59 Last Admin: 12/03/18 22:42 Dose: 25 mg Documented by: Warfarin Sodium (Coumadin 5 Mg Tablet) 5 mg PO QHS TERRE[facility] Stop: 01/01/19 21:59 Last Admin: 12/03/18 22:40 Dose: 5 mg Documented by: - Allergies Allergies/Adverse Reactions: Sulfa (Sulfonamide Antibiotics) Adverse Reaction (Verified 07/23/18 14:39) Vomiting sulfamethoxazole [From Bactrim] Adverse Reaction (Verified 07/23/18 14:39) Vomiting trimethoprim [From Bactrim] Adverse Reaction (Verified 07/23/18 14:39) Vomiting - Diet/Activity Discharge Diet: As Tolerated, Diabetic Hospital Course Hospital Course: VERA SPEARS is a 62 year old male past medical history of A. 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 Currently residing in [place] [facility] since June 19, 2018. Today patient was scheduled to have his left upper extremity fistula removed by vascular surgeon while being transported patient was noted to be hypoxic. Saturating in 80s. His who is at the bedside and is the primary caregiver stating that patient had been complaining of dry nonproductive cough over the last 2 weeks with w orsening shortness of breath Patient is stating that he has a very low appetite and has had significant weight loss since last year. Patient has a chronic indwelling Ramon catheter and it was replaced yesterday. As per she has noticed blood in the urine when changing the bag. He also has history of chronic anemia however never been transfused. He denies any hemoptysis, hematemesis, melena, hematochezia or bright blood per rectum. Denies any fever, chills, chest pain, nausea, abdominal pain, diarrhea, constipation or any urinary symptoms except for hematuria. Diagnosis (1) Acute exacerbation of CHF (congestive heart failure) Acute exacerbation of chronic systolic congestive heart failure Likely due to underlying pneumonia/end-stage renal disease. 2D echo on 12/01/2018 showed ejection fraction of 25-30%. Continue BB. Pt will benefit from ADAM therapy, but will differ initiation to Nephrology/Cardiology as pt is ESRD oh HD. Pt has established Nephrology care. Patient received HD while in patient. (2) Hypoxia Resolved. Saturating 97% on room air. Hypoxic respiratory failure likely caused by volume overload secondary to CHF/end-stage renal disease. Continued hemodialysis. Monitor volume status. Continue BiPAP, nebs, IV steroids, see if 5 days of IV antibiotics. Received 5 days of IV antibiotics. (3) Pneumonia Received 5 days of IV antibiotics. Blood cultures remain negative except for one blood culture from 11/30/2018. Positive for staph epidermidis. To repeat blood cultures came back negative. ID specialist from [facility] Dr. Islas was consulted about recommendation of IV antibiotics. Patient was patient did not need to continue IV antibiotics as outpatient. Family was made aware of positive blood cultures and advised to come back to ED if patient develops fever or chills or any symptoms. (4) Anemia Multifactorial including from ESRD/anemia of chronic disease, multiple myeloma iron deficiency anemia. Iron studies suggestive of iron deficiency anemia. Starte on ferrous sulfate. Patient received Procrit during hemodialysis. Did not receive any blood transfusion during this hospitalization. Hemoglobin is stated above 7. (5) ESRD (end stage renal disease) on dialysis Received scheduled hemodialysis during hospitalization by nephrology. Hemodialysis Monday. (6) Fluid overload As per problem #1. (7) Myeloma History of multiple myeloma. Followed by oncology at [facility]. Last visit November 2018. Another follow-up in 6 months. Currently not receiving any treatment for multiple myeloma per . (8) Hematuria UA positive for blood. Renal and bladder ultrasound did not show any masses. Outpatient urology follow-up. Unfortunately urology consult not available. (9) Atrial fibrillation Rate controlled. Continue beta-blockers. Anticoagulated. INR 2.21. Continue Coumadin. Daily INR. INR goal 2-2.5. (9) Staph epidermidis bacteremia. Received 5 days of IV vancomycin and ceftriaxone. Blood cultures remain negative except for one blood culture from 11/30/2018. Positive for staph epidermidis. Repeat blood culture from 12/01/2018 and 12/02/2018 came back negative. ID specialist from [facility] Dr. Islas was consulted about recommendation of IV antibiotics. As per her recommendation patient did not need to continue IV antibiotics as outpatient. Family was made aware of positive blood cultures and advised to come back to ED if patient develops fever or chills or any symptoms. Please refer to ID specialist report. Physical Exam Vital Signs: Temp Pulse Resp BP Pulse Ox 98.2 F 71 14 134/72 H 96 12/04/18 12:00 12/04/18 14:05 12/04/18 14:05 12/04/18 12:00 12/04/18 14:05 Pulse Oximeter Continuous Start: 11/30/18 13:44 Freq: RTQ4 Status: Active Protocol: Document 12/04/18 12:00 LDA (Rec: 12/04/18 12:23 LDA [id number]) Pulse Oximetry Assessment Equipment Usage Equipment Discontinued Continuous SpO2 Machine # 1 Intake & Output 12/03/18 12/04/18 12/05/18 06:59 06:59 06:59 Intake Total 942 1674 50 Output Total 200 1900 Balance 742 -226 50 Weight 78.1 kg 73.2 kg General appearance: PRESENT: no acute distress, well-developed, well-nourished Respiratory exam: PRESENT: clear to auscultation mac. ABSENT: rales, rhonchi, wheezes Cardiovascular exam: PRESENT: RRR. ABSENT: diastolic murmur, rubs, systolic murmur GI/Abdominal exam: PRESENT: normal bowel sounds, soft. ABSENT: distended, guarding, mass, organolmegaly, rebound, tenderness Results Laboratory Results: 12/04/18 05:40 12/04/18 05:40 12/04/18 12/04/18 05:40 05:40 WBC 5.8 RBC 3.29 L Hgb 8.1 L Hct 24.8 L MCV 75 L MCH 24.6 L MCHC 32.6 RDW 20.8 H Plt Count 201 Seg Neutrophils % 87.2 H Lymphocytes % 10.2 L Monocytes % 2.6 L Eosinophils % 0.0 Basophils % 0.0 Absolute Neutrophils 5.0 Absolute Lymphocytes 0.6 Absolute Monocytes 0.2 Absolute Eosinophils 0.0 Absolute Basophils 0.0 Sodium 140.7 Potassium 3.6 Chloride 99 Carbon Dioxide 29 Anion Gap 13 BUN 37 H Creatinine 2.21 H Est GFR ( Amer) 36 L Est GFR (Non-Af Amer) 30 L Glucose 222 H Calcium 9.7 Total Bilirubin 0.4 AST 9 L ALT 14 L Alkaline Phosphatase 63 Total Protein 5.9 L Albumin 3.6 11/30/18 22:45 Blood Blood Culture - Final Staphylococcus Epidermidis 11/30/18 10:40 Troponin I < 0.012 NT-Pro-B Natriuret Pep 29672 H Impressions: Lung Scan-VQ NM 11/30/18 00:00 IMPRESSION: Low probability for PE copyright 2011 [employer]- All Rights Reserved Chest X-Ray 11/30/18 09:52 IMPRESSION: Left-sided triple-lumen catheter tip superior vena cava, no pneumothorax. Mild perihilar alveolar infiltrates with Nancy lines from pulmonary edema or fluid overload. Renal Ultrasound 12/02/18 11:00 IMPRESSION: No right-sided hydronephrosis. Urinary bladder unremarkable. Very limited patient cooperation, patient would not allow us to visualize the left kidney
[2018-12-04 16:52] VITALS: BP 101/63
== END 2018-12-04 19:54 | DRG 698 ==
LOC: ER 09:34 → EH 12:56 → UNDOADMIN 12:56 → 4N 12-01 14:46
PROVIDERS: ADMIT Internal Medicine; ATTEND Internal Medicine
PROC: 5A1D70Z Performance of Urinary Filtration, Intermittent, Less than 6 Hours Per Day (ICD-10-PCS; principal; 2018-11-30)
PROC: 5A09457 Assistance with Respiratory Ventilation, 24-96 Consecutive Hours, Continuous Positive Airway Pressure (ICD-10-PCS; 2018-11-30)
PROC: 3E0F73Z Introduction of Anti-inflammatory into Respiratory Tract, Via Natural or Artificial Opening (ICD-10-PCS; 2018-11-30)
PROC: 5A1D70Z Performance of Urinary Filtration, Intermittent, Less than 6 Hours Per Day (ICD-10-PCS; 2018-12-03)
DX: E11.22 Type 2 diabetes mellitus with diabetic chronic kidney disease (principal); L89.154 Pressure ulcer of sacral region, stage 4; J18.9 Pneumonia, unspecified organism; I50.23 Acute on chronic systolic (congestive) heart failure; C90.00 Multiple myeloma not having achieved remission; R78.81 Bacteremia; J44.0 Chronic obstructive pulmonary disease with (acute) lower respiratory infection; N18.6 End stage renal disease; N25.81 Secondary hyperparathyroidism of renal origin; D63.1 Anemia in chronic kidney disease; I48.2 Chronic atrial fibrillation; B95.8 Unspecified staphylococcus as the cause of diseases classified elsewhere; Z79.899 Other long term (current) drug therapy; Z79.01 Long term (current) use of anticoagulants; R09.02 Hypoxemia; E87.70 Fluid overload, unspecified; R31.9 Hematuria, unspecified; Z79.82 Long term (current) use of aspirin; Z88.3 Allergy status to other anti-infective agents; Z88.2 Allergy status to sulfonamides; Z89.612 Acquired absence of left leg above knee; Z86.73 Personal history of transient ischemic attack (TIA), and cerebral infarction without residual deficits; Z79.4 Long term (current) use of insulin; Z79.891 Long term (current) use of opiate analgesic; Z99.2 Dependence on renal dialysis; Z87.891 Personal history of nicotine dependence
CPT/HCPCS: 36415; 71045; 76770; 78582; 80048; 80053; 81001; 82575; 82607; 82728; 82746; 82803; 82962; 83540; 83550; 83735; 83880; 84484; 85025; 85027; 85045; 85610; 86850; 86900; 86901; 87040; 87077; 87186; 93005; 93010; 93306; 94640; 94660; 94762; 96365; 99285; A9540; A9567; G0257; J0696; J1815; J2270; J2930; J3370; J3475; J3490; J7060; J7614; J7620; Q4081; Q9969

== ENCOUNTER 2018-12-24 00:46 | Emergency (ER) | payer OTHER, MEDICARE ==
--- NOTE | 2018-12-24 01:05 | ER Document Report ---
ED General - General Stated Complaint: PENIAL PROBLEM Time Seen by Provider: 12/24/18 00:52 Notes: She is a pleasant 63-year-old male who has a history of multiple myeloma. He is bedbound. He stays at the assisted. His history of chronic anemia. He presents because of continued hematuria. His hematuria is been ongoing for several weeks. He was admitted to the hospital the end of November and had at that time and is continued since then. He says his symptoms have not changed. He says he has had the exact seems blood in his urine. He said today the [facility] decided to send him here because he was still having blood in his urine analysis been ongoing for weeks. He does not think he seen urologist. We will get through his records he had ultrasound performed here. No concerning findings on ultrasound. They were unable to fully visualize one kidney. Patient denies fevers. Denies vomiting. He is a dialysis patient. His dialysis Monday. He is on Coumadin for atrial fibrillation. He says they have not held his Coumadin at all despite ongoing bleeding in his urine. He did have a condom cath on. There is an excoriation along the scrotal area. He says he is unsure what is there. He thinks it may be from where the head condom cath or adhesive against that area. TRAVEL OUTSIDE OF THE [place] IN LAST 30 DAYS: No - Related Data Allergies/Adverse Reactions: Sulfa (Sulfonamide Antibiotics) Adverse Reaction (Verified 07/23/18 14:39) Vomiting sulfamethoxazole [From Bactrim] Adverse Reaction (Verified 07/23/18 14:39) Vomiting trimethoprim [From Bactrim] Adverse Reaction (Verified 07/23/18 14:39) Vomiting Past Medical History - Social History Smoking Status: Never Smoker Frequency of alcohol use: None Drug Abuse: None Family History: Reviewed & Not Pertinent - Past Medical History Cardiac Medical History: Reports: Hx Atrial Fibrillation Pulmonary Medical History: Reports: Hx Asthma, Hx COPD Endocrine Medical History: Reports: Hx Diabetes Mellitus Type 2 Renal/ Medical History: Reports: Hx End Stage Renal Disease. Denies: Hx Peritoneal Dialysis Past Surgical History: Reports: Hx Appendectomy, Hx Orthopedic Surgery - bilateral, Hx Tonsillectomy Review of Systems - Review of Systems Notes: My Normal Review Basic REVIEW OF SYSTEMS: CONSTITUTIONAL : Denies fever, chills, or sweats. Denies recent illness. RESPIRATORY: Denies cough, cold, or chest congestion. Denies shortness of breath, difficulty breathing, or wheezing. GASTROINTESTINAL: Denies abdominal pain. Denies nausea, vomiting, or diarrhea. Denies constipation. GENITOURINARY: Hematuria MUSCULOSKELETAL: Denies neck or back pain or joint pain or swelling. SKIN: Denies rash or skin lesions. HEMATOLOGIC : On Coumadin NEUROLOGICAL: Denies altered mental status or loss of consciousness. Denies headache. Denies weakness or paralysis or loss of use of either side. Denies problems with gait or speech. Denies sensory or motor loss. ALL OTHER SYSTEMS REVIEWED AND NEGATIVE. Physical Exam - Vital signs Vitals: Resp 17 12/24/18 00:50 - Notes Notes: General Appearance: Well nourished, alert, cooperative, no acute distress, no obvious discomfort. Vitals: reviewed, See vital signs table. Head: no swelling or tenderness to the head Eyes: PERRL, EOMI, Conjuctiva clear Mouth: No decreasd moisture Lungs: No wheezing, No rales, No rhonci, No accessory muscle use, good air exchange bilaterally. Heart: Normal rate, Regular rythm, No murmur, no rub Chest wall: Patient has dialysis catheter right upper chest wall. Abdomen: Normal BS, soft, No rigidity, no abdominal pain to palpation. Genitalia: There is a thin superficial linear area of acute abrasion on the scrotal region that is a semicircular shape. This is consistent with what appears to be where the patient had a condom cath on and it was probably adhesive tape to the scrotum and he developed an abrasion from that. Extremities: Patient has a wound VAC on the right hip. The area around the wound VAC is normal-appearing without any spreading redness or swelling. Patient has fistula right upper arm. Skin: warm, dry, appropriate color, no rash Neuro: speech clear, oriented x 3, normal affect, responds appropriately to ques tions. Course - Re-evaluation Re-evalutation: 12/24/18 05:03 Patient did have some blood in his urine. Is not a large amount. I suspect most of blood that they have been seeing right external genitalia is actually from the abrasion on his scrotal region that has a slow venous leak. This abrasion is from where a condom cath was placed. The is at bedside and says that they actually applied an adhesive of some form to the skin to hold the candy, catheter in place and then taped it down. When they removed it the skin tore cause a abrasion around the scrotal region. I did apply some Dermabond. He still has just a very slow leak of blood from around the Dermabond area. This will likely not completely stop until his Coumadin has been reversed. I did give him a dose of vitamin K. I did call from the assisted and informed them to hold the Coumadin for 4 days. Also wrote this in his discharge instructions. I did explain this to the patient and and informed him that with A. fib there is a small risk of stroke holding the Coumadin however the bleeding would not stop without holding the Coumadin and therefore they are agreeable to go forward with this. I wrote a discharge instructions never to apply condom cath or adhesive to the scrotal area again. This way we can avoid further abrasions and recurrent bleeding. He was given 1 unit of blood. His hemoglobin is 7.2. His electrolytes are okay.. He gets dialysis again on Monday. At this time if the patient safe to be discharged back to assisted. I informed him to return to ER immediately if he has fevers, heavy blood per the catheter, difficulty breathing, or if he appears unwell. Patient and agree with plan and patient will be discharged back to assisted. Dictation of this chart was performed using voice recognition software; therefore, there may be some unintended grammatical errors. - Vital Signs Vital signs: Temp Pulse Resp BP Pulse Ox 98.0 F 40 L 15 119/63 98 12/24/18 04:31 12/24/18 04:30 12/24/18 04:31 12/24/18 04:31 12/24/18 04:31 - Laboratory Result Diagrams: 12/24/18 01:10 12/24/18 01:10 Laboratory results interpreted by me: 12/24/18 12/24/18 12/24/18 01:10 01:10 01:10 RBC 2.83 L Hgb 7.2 L Hct 21.5 L MCV 76 L MCH 25.3 L RDW 19.0 H Eosinophils % 7.1 H PT 21.4 H BUN 30 H Creatinine 2.41 H Est GFR ( Amer) 33 L Est GFR (Non-Af Amer) 27 L Urine Protein Urine Blood Ur Leukocyte Esterase Urine Ascorbic Acid Crossmatch 12/24/18 12/24/18 01:10 02:06 RBC Hgb Hct MCV MCH RDW Eosinophils % PT BUN Creatinine Est GFR ( Amer) Est GFR (Non-Af Amer) Urine Protein 30 H Urine Blood MODERATE H Ur Leukocyte Esterase TRACE H Urine Ascorbic Acid 40 H Crossmatch See Detail Discharge - Discharge Clinical Impression: Hematuria Qualifiers: Hematuria type: unspecified type Qualified Code(s): R31.9 - Hematuria, unspecified Abrasion of scrotum Qualifiers: Encounter type: initial encounter Qualified Code(s): S30.813A - Abrasion of scrotum and testes, initial encounter Anemia Qualifiers: Anemia type: unspecified type Qualified Code(s): D64.9 - Anemia, unspecified Condition: Good Disposition: HOME, SELF-CARE Additional Instructions: PLease do not give coumadin again until 12/28/18. Please follow up with the urologist. The catheter needs to be changed in one week. He tolerates catheter exchange well if he is given urojet prior to placing a new catheter. please avoid applying condom caths or any adhesive to the scrotal area. Please return t o the ER if Mr. Xie has fevers, difficulty breathing, obstruction of his catheter, or appears unwell.
[2018-12-24 01:17] LABS: ABSOLUTE BASOPHILS # (AUTO) 0.1 10^3/uL (0.0-0.2); ABSOLUTE EOSINOPHILS # (AUTO) 0.3 10^3/uL (0.0-0.6); ABSOLUTE LYMPHOCYTES (AUTO) 1.3 10^3/uL (0.5-4.7); ABSOLUTE MONOCYTES (AUTO) 0.3 10^3/uL (0.1-1.4); BASOPHILS % (AUTO) 1.4 % (0-2); EOSINOPHILS % (AUTO) 7.1 % (0-6); HEMATOCRIT 21.5 % (37.9-51.0); LYMPHOCYTES % (AUTO) 33.3 % (13-45); MEAN CORPUSCULAR HEMOGLOBIN 25.3 pg (27.0-33.4); MEAN CORPUSCULAR HGB CONC 33.3 g/dL (32.0-36.0); MEAN CORPUSCULAR VOLUME 76 fl (80-97); MONOCYTES % (AUTO) 7.9 % (3-13); PLATELET COUNT 175 10^3/uL (150-450); RED BLOOD COUNT 2.83 10^6/uL (4.35-5.55); SEGMENTED NEUTROPHILS % (AUTO) 50.3 % (42-78); TOTAL CELLS COUNTED % (AUTO) 100 %
[2018-12-24 01:19] LABS: HEMOGLOBIN 7.2 g/dL (13.5-17.0)
[2018-12-24] MEDS ORDERED: NORMAL SALINE 250 ML IV PRN (01:20)
[2018-12-24 01:22] LABS: INTERNATIONAL RATION (INR) 1.76; PROTHROMBIN TIME 21.4 SEC (11.4-15.4)
[2018-12-24 01:28] LABS: ANION GAP 9 (5-19); BLOOD UREA NITROGEN 30 mg/dL (7-20); CALCIUM 9.6 mg/dL (8.4-10.2); CARBON DIOXIDE 29 mmol/L (22-30); CHLORIDE 101 mmol/L (98-107); GLUCOSE 104 mg/dL (75-110); POTASSIUM 3.7 mmol/L (3.6-5.0); SODIUM 139.4 mmol/L (137-145)
[2018-12-24] MEDS ORDERED: LIDOCAINE 2% URO-JET 5 ML KIT MM ONE (01:36)
[2018-12-24] MEDS ORDERED: PHYTONADIONE INJ 10 MG/1 ML AMPULE SUBCUT ONE ×2 (02:43→03:52)
[2018-12-24 03:41] LABS: APPEARANCE,URINE SLIGHTLY-CLOUDY; BILIRUBIN,URINE NEGATIVE (NEGATIVE); CALCIUM OXALATE CRYSTALS,URINE TOO NUMEROUS TO CNT /HPF; COLOR,URINE YELLOW; GLUCOSE, URINE NEGATIVE (NEGATIVE); KETONES,URINE NEGATIVE (NEGATIVE); LEUKOCYTE ESTERASE,URINE TRACE (NEGATIVE); NITRITE,URINE NEGATIVE (NEGATIVE); PROTEIN,URINE 30 mg/dL (NEGATIVE); URINE SPECIFIC GRAVITY 1.014; UROBILINOGEN,URINE NEGATIVE mg/dL (<2.0)
[2018-12-24 05:39] VITALS: BP 108/64
== END 2018-12-24 05:39 | disposition home or self-care (01) ==
LOC: EDBD → ER 00:46
DX: R31.9 Hematuria, unspecified (principal); S30.813A Abrasion of scrotum and testes, initial encounter; X58.XXXA Exposure to other specified factors, initial encounter; E11.22 Type 2 diabetes mellitus with diabetic chronic kidney disease; N18.6 End stage renal disease; Z99.2 Dependence on renal dialysis; D63.1 Anemia in chronic kidney disease; I48.91 Unspecified atrial fibrillation; Z79.01 Long term (current) use of anticoagulants; Z74.01 Bed confinement status; Z85.79 Personal history of other malignant neoplasms of lymphoid, hematopoietic and related tissues
CPT/HCPCS: 99284; 96372; 86900; 86901; 36415; 36430; 86850; 85025; 85610; 80048; 81001; 86920; 12001; C1758 ×2; P9016; J3430; J3490

== ENCOUNTER 2019-02-09 15:41 | Emergency (ER) | payer OTHER, MEDICARE ==
--- NOTE | 2019-02-09 17:15 | ER Document Report ---
ED General - General Chief Complaint: Abnormal Lab Results Stated Complaint: GENERAL WEAKNESS Time Seen by Provider: 02/09/19 17:13 Primary Care Provider: ADAM TRAORE MD [Primary Care Provider] - Follow up as needed Notes: This is a 63-year-old male presents emergency department from a local nursing facility for evaluation of abnormal lab results. Patient is a chronic renal failure patient on dialysis. Followed by nephrology. Dialysis Monday. Had blood work done at dialysis today and hemoglobin was noted to be 6.9. Sent to the ER for possible transfusion. Patient has chronic pain in his penis due to indwelling Ramon catheter. Patient had a large stroke. Developed sepsis. Had subsequent limb loss and nonhealing ulcers to the sacrum, right foot. 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 Currently at this time denies any other major symptoms other than his chronic issues. Followed by nephrology. No reported black tarry stools. No reported bright red blood in stool. No prior history of GI bleed. TRAVEL OUTSIDE OF THE [place] IN LAST 30 DAYS: No - HPI Onset/Duration: Gradual Severity: Mild Pain Level: Denies Associated symptoms: None - Related Data Allergies/Adverse Reactions: Sulfa (Sulfonamide Antibiotics) Adverse Reaction (Verified 07/23/18 14:39) Vomiting sulfamethoxazole [From Bactrim] Adverse Reaction (Verified 07/23/18 14:39) Vomiting trimethoprim [From Bactrim] Adverse Reaction (Verified 07/23/18 14:39) Vomiting Past Medical History - General Information source: Relative, [facility] Records - Social History Smoking Status: Unknown if Ever Smoked Frequency of alcohol use: None Drug Abuse: None Lives with: Care Home Family History: Reviewed & Not Pertinent Patient has suicidal ideation: No Patient has homicidal ideation: No - Past Medical History Cardiac Medical History: Reports: Hx Atrial Fibrillation Pulmonary Medical History: Reports: Hx Asthma, Hx COPD Endocrine Medical History: Reports: Hx Diabetes Mellitus Type 2 Renal/ Medical History: Reports: Hx End Stage Renal Disease. Denies: Hx Peritoneal Dialysis Past Surgical History: Reports: Hx Appendectomy, Hx Orthopedic Surgery - bilateral, Hx Tonsillectomy Review of Systems - Review of Systems Notes: Constitutional: denies: Chills, Diaphoresis, Fever, Malaise, Weakness EENT: denies: Eye discharge, Blurred vision, Tearing, Double vision, Nose congestion, Nose discharge, Throat swelling, Mouth pain Cardiovascular: denies: Palpitations, Heart racing, Orthopnea, Dyspnea, Chest pain Respiratory: denies: Cough, Hurts to breathe, Wheezing, Shortness of breath Gastrointestinal: denies: Abdominal pain, Diarrhea, Nausea, Vomiting, Black stools, bright red blood in stool Genitourinary: denies: Burning, Dysuria, Discharge, Frequency, Flank pain, Hematuria Musculoskeletal: denies: Joint pain, Joint swelling, Muscle pain, Muscle stiffness, back pain Hematologic/Lymphatic: denies: Easy bleeding, Easy bruising, Blood clots. Worsening anemia due to chronic kidney failure Neurological/Psychological: denies: Confusion, Dementia, Depression, Loss of consciousness Skin: No lesions, no masses, no skin breakdown, no abscesses Physical Exam - Vital signs Vitals: Temp 98.5 F 02/09/19 18:06 Interpretation: Normal - General General appearance: Appears well, Alert - HEENT Head: Normocephalic, Atraumatic Eyes: Normal Pupils: PERRL - Respiratory Respiratory status: No respiratory distress Chest status: Nontender Breath sounds: Normal Chest palpation: Normal - Cardiovascular Rhythm: Regular Heart sounds: Normal auscultation Murmur: No - Abdominal Inspection: Normal Distension: No distension Bowel sounds: Normal Tenderness: Nontender Organomegaly: No organomegaly - Back Back: Normal, Nontender - Extremities General upper extremity: Normal inspection, Nontender, Normal color, Normal ROM, Normal temperature General lower extremity: Other - Patient has left BKA. Patient has the right lower extremity and a supportive boot with chronic ulcer.. No: Sal's sign - Neurological Neuro grossly intact: Yes Cognition: Normal Orientation: AAOx4 [place] Coma Scale Eye Opening: Spontaneous [place] Coma Scale Verbal: Oriented [place] Coma Scale Motor: Obeys Commands [place] Coma Scale Total: 15 - Psychological Associated symptoms: Normal affect, Normal mood - Skin Skin Temperature: Warm Skin Moisture: Dry Skin Color: Other - Sore on the right foot. There is a wound VAC present on the sacrum. Course - Re-evaluation Re-evalutation: 02/09/19 20:41 Laboratory 02/09/19 02/09/19 02/09/19 17:21 17:21 17:21 WBC 5.4 RBC 2.67 L Hgb 6.9 L Hct 20.8 L MCV 78 L MCH 26.0 L MCHC 33.4 RDW 18.3 H Plt Count 168 Seg Neutrophils % 73.6 Lymphocytes % 16.8 Monocytes % 6.7 Eosinophils % 2.3 Basophils % 0.6 Absolute Neutrophils 4.0 Absolute Lymphocytes 0.9 Absolute Monocytes 0.4 Absolute Eosinophils 0.1 Absolute Basophils 0.0 PT 24.9 H INR 2.14 APTT 59.1 H Sodium 137.3 Potassium 3.2 L Chloride 101 Carbon Dioxide 30 Anion Gap 6 BUN 18 Creatinine 1.77 H Est GFR ( Amer) 47 L Est GFR (Non-Af Amer) 39 L Glucose 100 Calcium 9.7 Total Bilirubin 0.4 Direct Bilirubin 0.4 Neonat Total Bilirubin Not Reportable Neonat Direct Bilirubin Not Reportable Neonat Indirect Bili Not Reportable AST 13 L ALT 23 Alkaline Phosphatase 92 Total Protein 5.9 L Albumin 3.3 L Urine Color Urine Appearance Urine pH Ur Specific [place] Urine Protein Urine Glucose (UA) Urine Ketones Urine Blood Urine Nitrite Urine Bilirubin Urine Urobilinogen Ur Leukocyte Esterase Urine WBC (Auto) Urine RBC (Auto) Urine Bacteria (Auto) Urine WBC Clumps Urine Ascorbic Acid Blood Type Antibody Screen Crossmatch 02/09/19 02/09/19 17:30 17:30 WBC RBC Hgb Hct MCV MCH MCHC RDW Plt Count Seg Neutrophils % Lymphocytes % Monocytes % Eosinophils % Basophils % Absolute Neutrophils Absolute Lymphocytes Absolute Monocytes Absolute Eosinophils Absolute Basophils PT INR APTT Sodium Potassium Chloride Carbon Dioxide Anion Gap BUN Creatinine Est GFR ( Amer) Est GFR (Non-Af Amer) Glucose Calcium Total Bilirubin Direct Bilirubin Neonat Total Bilirubin Neonat Direct Bilirubin Neonat Indirect Bili AST ALT Alkaline Phosphatase Total Protein Albumin Urine Color DARK YELLOW Urine Appearance TURBID Urine pH 7.0 Ur Specific [place] 1.013 Urine Protein 100 H Urine Glucose (UA) NEGATIVE Urine Ketones NEGATIVE Urine Blood LARGE H Urine Nitrite NEGATIVE Urine Bilirubin NEGATIVE Urine Urobilinogen NEGATIVE Ur Leukocyte Esterase LARGE H Urine WBC (Auto) >182 Urine RBC (Auto) 64 Urine Bacteria (Auto) 2+ Urine WBC Clumps MANY Urine Ascorbic Acid 40 H Blood Type A POSITIVE Antibody Screen NEGATIVE Crossmatch See Detail Patient's hemoglobin is less than 7 symptoms meet criteria for transfusion. I do not want to fluid overload this patient who is a renal failure patient on dialysis and not scheduled for dialysis until Monday. Will proceed with transfusion of 1 unit of PRBCs. Patient's other labs are fairly unremarkable. His urinalysis does show significant amount of WBCs with clumping the patient has had an indwelling Ramon catheter for several months which has not been removed. I do not want to treat this at this time as patient is asymptomatic. I am going to replace the Ramon and Ramon bag collection supplies. Will write for routine changing at the nursing facility. I anticipate the patient will likely be able to be discharged. I did do a CT scan of the abdomen and pelvis to mid due to the fact that it appeared to have some blood in the urine. There does not appear to be any obvious abnormality seen in the kidneys consistent with kidney stone. Vital signs within normal limits. Culture of the urine obtained and I have advised the family members to contact the hospital for culture results. I have advised against treating without consultation with urology due to the fact the patient is currently on blood thinners and this could definitely effect his INR. This is a complex medical patient with multiple medical problems. Disposition at this time appears appropriate to go back home after transfusion. 02/09/19 22:28 - Vital Signs Vital signs: Temp Pulse Resp BP Pulse Ox 98.7 F 71 16 138/75 H 97 02/09/19 21:01 02/09/19 21:10 02/09/19 21:10 02/09/19 21:01 02/09/19 21:10 - Laboratory Result Diagrams: 02/09/19 17:21 02/09/19 17:21 Laboratory results interpreted by me: 02/09/19 02/09/19 02/09/19 17:21 17:21 17:21 RBC 2.67 L Hgb 6.9 L Hct 20.8 L MCV 78 L MCH 26.0 L RDW 18.3 H PT 24.9 H APTT 59.1 H Potassium 3.2 L Creatinine 1.77 H Est GFR ( Amer) 47 L Est GFR (Non-Af Amer) 39 L AST 13 L Total Protein 5.9 L Albumin 3.3 L Urine Protein Urine Blood Ur Leukocyte Esterase Urine Ascorbic Acid Crossmatch 02/09/19 02/09/19 17:30 17:30 RBC Hgb Hct MCV MCH RDW PT APTT Potassium Creatinine Est GFR ( Amer) Est GFR (Non-Af Amer) AST Total Protein Albumin Urine Protein 100 H Urine Blood LARGE H Ur Leukocyte Esterase LARGE H Urine Ascorbic Acid 40 H Crossmatch See Detail Discharge - Discharge Clinical Impression: Chronic anemia Condition: Good Disposition: REHAB FACILITY Instructions: Anemia ([facility]) Additional Instructions: Please notify the nursing facility to change the catheter every 2 weeks. Please make an appointment to follow-up with a urologist to discuss treatment options for your long-term Ramon catheter care. Did receive a blood transfusion today. Please notify your medical providers. In the event that you develop any worsening symptoms or concerns please return immediately for repeat evaluation and treatment. Prescriptions: Catheter Accessories,External [Cath-Secure Tube George] 1 each MC [id number] Days #6 each Referrals: ADAM TRAORE MD [Primary Care Provider] - Follow up as needed
[2019-02-09] MEDS ORDERED: FENTANYL CITRATE INJ/PF 100 MCG/2 ML AMPUL IV ONE (17:27)
[2019-02-09 17:49] LABS: ABSOLUTE EOSINOPHILS # (AUTO) 0.1 10^3/uL (0.0-0.6); ABSOLUTE LYMPHOCYTES (AUTO) 0.9 10^3/uL (0.5-4.7); ABSOLUTE MONOCYTES (AUTO) 0.4 10^3/uL (0.1-1.4); BASOPHILS % (AUTO) 0.6 % (0-2); EOSINOPHILS % (AUTO) 2.3 % (0-6); HEMATOCRIT 20.8 % (37.9-51.0); LYMPHOCYTES % (AUTO) 16.8 % (13-45); MEAN CORPUSCULAR HGB CONC 33.4 g/dL (32.0-36.0); MEAN CORPUSCULAR VOLUME 78 fl (80-97); MONOCYTES % (AUTO) 6.7 % (3-13); PLATELET COUNT 168 10^3/uL (150-450); RED BLOOD COUNT 2.67 10^6/uL (4.35-5.55); RED CELL DISTRIBUTION WIDTH 18.3 % (11.5-14.0); SEGMENTED NEUTROPHILS % (AUTO) 73.6 % (42-78); TOTAL CELLS COUNTED % (AUTO) 100 %; WHITE BLOOD COUNT 5.4 10^3/uL (4.0-10.5)
[2019-02-09 17:51] LABS: HEMOGLOBIN 6.9 g/dL (13.5-17.0)
[2019-02-09] MEDS ORDERED: NORMAL SALINE 250 ML IV PRN (17:54)
[2019-02-09 17:57] LABS: INTERNATIONAL RATION (INR) 2.14; PROTHROMBIN TIME 24.9 SEC (11.4-15.4)
[2019-02-09 17:58] LABS: PARTIAL THROMBOPLASTIN TIME 59.1 SEC (23.5-35.8)
[2019-02-09 18:12] LABS: APPEARANCE,URINE TURBID; BILIRUBIN,URINE NEGATIVE (NEGATIVE); GLUCOSE, URINE NEGATIVE (NEGATIVE); KETONES,URINE NEGATIVE (NEGATIVE); LEUKOCYTE ESTERASE,URINE LARGE (NEGATIVE); NITRITE,URINE NEGATIVE (NEGATIVE); PROTEIN,URINE 100 mg/dL (NEGATIVE); URINE SPECIFIC GRAVITY 1.013; UROBILINOGEN,URINE NEGATIVE mg/dL (<2.0)
[2019-02-09 18:14] LABS: COLOR,URINE DARK YELLOW
[2019-02-09 18:25] LABS: ALANINE AMINOTRANSFERASE 23 U/L (21-72); ALBUMIN 3.3 g/dL (3.5-5.0); ALKALINE PHOSPHATASE 92 U/L (38-126); ANION GAP 6 (5-19); ASPARTATE AMINO TRANSFERASE 13 U/L (17-59); BILIRUBIN,DIRECT 0.4 mg/dL (0.0-0.4); BILIRUBIN,TOTAL 0.4 mg/dL (0.2-1.3); BLOOD UREA NITROGEN 18 mg/dL (7-20); CALCIUM 9.7 mg/dL (8.4-10.2); CARBON DIOXIDE 30 mmol/L (22-30); CHLORIDE 101 mmol/L (98-107); GLUCOSE 100 mg/dL (75-110); POTASSIUM 3.2 mmol/L (3.6-5.0); SODIUM 137.3 mmol/L (137-145); TOTAL PROTEIN 5.9 g/dL (6.3-8.2)
--- NOTE | 2019-02-09 18:34 | RADIOLOGY REPORT (SQ) ---
EXAM DESCRIPTION: CT ABD/PELVIS NO ORAL OR IV COMPLETED DATE/TIME: 02/09/2019 6:21 pm REASON FOR STUDY: blood in urine COMPARISON: None. TECHNIQUE: CT scan of the abdomen and pelvis performed without intravenous or oral contrast. Images reviewed with lung, soft tissue, and bone windows. Reconstructed coronal and sagittal MPR images revi ewed. All images stored on PACS. All CT scanners at this facility use dose modulation, iterative reconstruction, and/or weight based d osing when appropriate to reduce radiation dose to as low as reasonably achievable (ALARA). [facility]: Dose Right [facility]: CareDose [facility]: Dose Right [facility]: Teradose 4D [facility]: [employer] RADIATION DOSE: CT Rad equipment meets quality standard of care and radiation dose reduction techniq ues were employed. CTDIvol: 10.6 mGy. DLP: 602 mGy-cm.mGy. LIMITATIONS: None. FINDINGS: LOWER CHEST: Scarring in the lung bases. No significant nodules. No effusions. NON-CONTRASTED LIVER, SPLEEN, ADRENALS: Evaluation limited by lack of IV contrast. No identified sign ificant masses. PANCREAS: No masses. No peripancreatic inflammatory changes. GALLBLADDER: No identified stones by CT criteria. No inflammatory changes to suggest cholecystitis. RIGHT KIDNEY AND URETER: No suspicious masses. Assessment limited by lack of IV contrast. There are diffuse vascular calcifications in the right kidney. No nephrolithiasis appreciated. No hydroneph rosis or hydroureter. LEFT KIDNEY AND URETER: There is a slightly exophytic hypoattenuating lesion near the superior pole o f the left kidney that may represent a cyst but is incompletely evaluated on this exam. Multiple va scular calcifications are present. There may be some nephroliths present, however is difficult to di stinguish between nephroliths and vascular calcifications in this kidney. No hydronephrosis or hydr oureter. AORTA AND RETROPERITONEUM: Diffuse aortoiliac calcifications. No aneurysm. No adenopathy. BOWEL AND PERITONEAL CAVITY: There is a large stool burden present, particular within the rectum. Th e bowel is otherwise grossly unremarkable. No free fluid or masses appreciated within the abdomen. APPENDIX: Not visualized. PELVIS, BLADDER, AND ABDOMINAL WALL:Limited evaluation the bladder secondary to an indwelling cathete r. There is edema noted throughout the superficial soft tissues. BONES: No significant findings. OTHER: No other significant finding. IMPRESSION: No definite evidence of urolithiasis. There are multiple calcifications in the kidneys bilaterally however these likely represent vascular calcifications. No evidence of hydronephrosis. Limited evaluation of bladder due to indwelling Ramon catheter. COMMENT: Quality ID # [id number]: Final reports with documentation of one or more dose reduction techniques (e.g., Automated exposure control, adjustment of the mA and/or kV according to patient size, use of iterative reconstruction technique) TECHNICAL DOCUMENTATION: JOB ID: [id number] [employer]- All Rights Reserved Reading location - IP/workstation name: [email or web address]
[2019-02-09] MEDS ORDERED: LIDOCAINE 2% URO-JET 5 ML KIT MM ONE (20:36)
[2019-02-09] MEDS ORDERED: FENTANYL CITRATE INJ/PF 100 MCG/2 ML AMPUL IV PRN (22:29)
[2019-02-09] MEDS ORDERED: DIPHENHYDRAMINE HCL 25 MG CAPSULE PO ONE (22:30)
[2019-02-09] MEDS ORDERED: ACETAMINOPHEN 325 MG TABLET PO ONE (22:30)
[2019-02-09 23:52] VITALS: BP 141/67
== END 2019-02-09 23:30 ==
LOC: ER 15:41
DX: D64.9 Anemia, unspecified (principal); R31.9 Hematuria, unspecified; R53.1 Weakness; J44.9 Chronic obstructive pulmonary disease, unspecified; E11.22 Type 2 diabetes mellitus with diabetic chronic kidney disease; N18.6 End stage renal disease; G89.29 Other chronic pain; I48.91 Unspecified atrial fibrillation; Z99.2 Dependence on renal dialysis; Z88.3 Allergy status to other anti-infective agents; Z88.2 Allergy status to sulfonamides; L89.159 Pressure ulcer of sacral region, unspecified stage; Z86.73 Personal history of transient ischemic attack (TIA), and cerebral infarction without residual deficits; Z89.512 Acquired absence of left leg below knee
CPT/HCPCS: 96376; 99284; 51702; 96374; 86900; 86901; 36415; 87086; 36430; 86850; 85025; 85610; 85730; 87088; 80053; 81001; 87186; 86920; 74176; P9016; J3010

== ENCOUNTER 2019-02-26 16:52 | Emergency (ER) | payer MEDICARE, OTHER ==
[2019-02-26] MEDS ORDERED: NORMAL SALINE 250 ML IV PRN ×2 (17:53)
[2019-02-26 18:11] LABS: ABSOLUTE BASOPHILS # (AUTO) 0.1 10^3/uL (0.0-0.2); ABSOLUTE EOSINOPHILS # (AUTO) 0.1 10^3/uL (0.0-0.6); ABSOLUTE LYMPHOCYTES (AUTO) 0.9 10^3/uL (0.5-4.7); ABSOLUTE MONOCYTES (AUTO) 0.3 10^3/uL (0.1-1.4); BASOPHILS % (AUTO) 1.1 % (0-2); EOSINOPHILS % (AUTO) 2.4 % (0-6); HEMATOCRIT 21.9 % (37.9-51.0); LYMPHOCYTES % (AUTO) 17.2 % (13-45); MEAN CORPUSCULAR HEMOGLOBIN 26.3 pg (27.0-33.4); MEAN CORPUSCULAR VOLUME 77 fl (80-97); MONOCYTES % (AUTO) 6.1 % (3-13); PLATELET COUNT 189 10^3/uL (150-450); RED BLOOD COUNT 2.83 10^6/uL (4.35-5.55); RED CELL DISTRIBUTION WIDTH 17.3 % (11.5-14.0); SEGMENTED NEUTROPHILS % (AUTO) 73.2 % (42-78); TOTAL CELLS COUNTED % (AUTO) 100 %; WHITE BLOOD COUNT 5.5 10^3/uL (4.0-10.5)
[2019-02-26 18:14] LABS: HEMOGLOBIN 7.4 g/dL (13.5-17.0)
[2019-02-26 18:23] LABS: ALANINE AMINOTRANSFERASE 15 U/L (21-72); ALBUMIN 3.3 g/dL (3.5-5.0); ALKALINE PHOSPHATASE 94 U/L (38-126); ANION GAP 7 (5-19); ASPARTATE AMINO TRANSFERASE 9 U/L (17-59); BILIRUBIN,DIRECT 0.3 mg/dL (0.0-0.4); BILIRUBIN,TOTAL 0.3 mg/dL (0.2-1.3); BLOOD UREA NITROGEN 14 mg/dL (7-20); CALCIUM 9.1 mg/dL (8.4-10.2); CARBON DIOXIDE 30 mmol/L (22-30); CHLORIDE 103 mmol/L (98-107); GLUCOSE 128 mg/dL (75-110); POTASSIUM 3.1 mmol/L (3.6-5.0); SODIUM 139.6 mmol/L (137-145); TOTAL PROTEIN 5.9 g/dL (6.3-8.2)
--- NOTE | 2019-02-26 18:51 | ER Document Report ---
ED General - General Chief Complaint: Abnormal Lab Results Stated Complaint: WEAKNESS Time Seen by Provider: 02/26/19 17:52 Primary Care Provider: ADAM TRAORE MD [Primary Care Provider] - Follow up as needed TRAVEL OUTSIDE OF THE [place] IN LAST 30 DAYS: Yes - HPI Notes: Patient is a 63-year-old male that presents to the emergency department for chief complaint of anemia. Patient has history of anemia of chronic disease and is on dialysis. He did receive a full dialysis treatment today. Patient has routine blood work performed at his alf facility today which showed a hemoglobin of 6.9. Patient states his last blood transfusion was about 2 weeks ago. He de nies any symptoms of shortness of breath, lightheadedness, palpitations, chest pain, nausea/vomiting, abdominal pain. He denies any black or bloody stools. He denies any active bleeding. Past Medical History: End-stage renal disease Past Surgical History: Left AKA Social History: Tobacco, alcohol and drug use Family History: Reviewed and noncontributory for presenting illness Allergies: Reviewed, see documented allergy list. REVIEW OF SYSTEMS: CONSTITUTIONAL : No fever No chills No diaphoresis No recent illness EENT: No vision changes No congestion No sore throat CARDIOVASCULAR: No chest pain No palpitations RESPIRATORY: No shortness of breath No cough No difficulty breathing GASTROINTESTINAL: No abdominal pain No nausea No vomiting No diarrhea GENITOURINARY: No dysuria No hematuria No difficulty urinating MUSCULOSKELETAL: No back pain No leg pain No arm pain SKIN: No rashes Sacral lesions LYMPHATIC: No swollen, enlarged glands. NEUROLOGICAL: No lightheadedness No headache No weakness No paresthesias PSYCHIATRIC: No anxiety No depression PHYSICAL EXAMINATION: Vital signs reviewed, nursing noted reviewed. GENERAL: Well-appearing, well-nourished and in no acute distress. HEAD: Atraumatic, normocephalic. EYES: Eyes appear normal, extraocular movements intact, sclera anicteric, conjunctiva are normal. ENT: nares patent, oropharynx clear without exudates. Moist mucous membranes. NECK: Normal range of motion, supple without lymphadenopathy LUNGS: Breath sounds clear to auscultation bilaterally and equal. No wheezes rales or rhonchi. HEART: Regular rate and rhythm without murmurs ABDOMEN: Soft, nontender, normoactive bowel sounds. No rebound, guarding, or rigidity. No masses appreciated. EXTREMITIES: Left AKA, extremity tenderness diffusely with no long bone deformity, right leg pitting edema NEUROLOGICAL: No focal neurological deficits. Moves all extremities spontaneously Motor and sensory grossly intact on exam. PSYCH: Normal mood, normal affect. SKIN: Warm, Dry, normal turgor, ulceration to right third toe laterally with wound dressing in place. Large sacral decubitus ulcer with wound packing and dressing over top dated 02/26/2019. - Related Data Allergies/Adverse Reactions: Sulfa (Sulfonamide Antibiotics) Adverse Reaction (Verified 07/23/18 14:39) Vomiting sulfamethoxazole [From Bactrim] Adverse Reaction (Verified 07/23/18 14:39) Vomiting trimethoprim [From Bactrim] Adverse Reaction (Verified 07/23/18 14:39) Vomiting Past Medical History - Social History Smoking Status: Never Smoker Family History: Reviewed & Not Pertinent - Past Medical History Cardiac Medical History: Reports: Hx Atrial Fibrillation Pulmonary Medical History: Reports: Hx Asthma, Hx COPD Endocrine Medical History: Reports: Hx Diabetes Mellitus Type 2 Renal/ Medical History: Reports: Hx End Stage Renal Disease. Denies: Hx Peritoneal Dialysis Past Surgical History: Reports: Hx Appendectomy, Hx Orthopedic Surgery - bilateral, Hx Tonsillectomy Physical Exam - Vital signs Vitals: Temp Resp BP Pulse Ox 98.5 F 21 H 141/88 H 95 02/26/19 17:18 02/26/19 17:18 02/26/19 17:18 02/26/19 17:18 Course - Re-evaluation Re-evalutation: 02/26/19 18:50 Vitals reviewed. Nursing notes reviewed. Patient's repeat hemoglobin here is 7.4. He was 6.9 at this facility earlier in the day. His anemia is from chronic renal insufficiency. Patient is otherwise hemodynamically stable with no signs of acute bleeding. He will be given 1 unit packed red blood cells and discharged back to alf facility. Laboratory 02/26/19 02/26/19 02/26/19 17:40 17:40 17:40 WBC 5.5 RBC 2.83 L Hgb 7.4 L Hct 21.9 L MCV 77 L MCH 26.3 L MCHC 34.0 RDW 17.3 H Plt Count 189 Seg Neutrophils % 73.2 Lymphocytes % 17.2 Monocytes % 6.1 Eosinophils % 2.4 Basophils % 1.1 Absolute Neutrophils 4.0 Absolute Lymphocytes 0.9 Absolute Monocytes 0.3 Absolute Eosinophils 0.1 Absolute Basophils 0.1 Sodium 139.6 Potassium 3.1 L Chloride 103 Carbon Dioxide 30 Anion Gap 7 BUN 14 Creatinine 1.44 H Est GFR ( Amer) > 60 Est GFR (Non-Af Amer) 49 L Glucose 128 H Calcium 9.1 Total Bilirubin 0.3 Direct Bilirubin 0.3 Neonat Total Bilirubin Not Reportable Neonat Direct Bilirubin Not Reportable Neonat Indirect Bili Not Reportable AST 9 L ALT 15 L Alkaline Phosphatase 94 Total Protein 5.9 L Albumin 3.3 L Crossmatch See Detail - Vital Signs Vital signs: Temp Pulse Resp BP Pulse Ox 98.5 F 16 141/76 H 99 02/26/19 17:18 02/26/19 18:01 02/26/19 18:01 02/26/19 18:01 - Laboratory Result Diagrams: 02/26/19 17:40 02/26/19 17:40 Laboratory results interpreted by me: 02/26/19 02/26/19 02/26/19 17:40 17:40 17:40 RBC 2.83 L Hgb 7.4 L Hct 21.9 L MCV 77 L MCH 26.3 L RDW 17.3 H Potassium 3.1 L Creatinine 1.44 H Est GFR (Non-Af Amer) 49 L Glucose 128 H AST 9 L ALT 15 L Total Protein 5.9 L Albumin 3.3 L Crossmatch See Detail Discharge - Discharge Clinical Impression: Anemia Qualifiers: Anemia type: other cause Other causes of anemia: other cause, not classified Qualified Code(s): D64.89 - Other specified anemias Condition: Stable Disposition: HOME, SELF-CARE Instructions: Anemia ([facility]) Additional Instructions: Please return to the emergency department if you have any worsening, or concern of your symptoms. Please return to the emergency department if you develop chest pain, difficulty breathing, severe abdominal pain, or ongoing vomiting. Please follow-up with your primary care physician in 2-3 days and any other recommended physicians. If prescribed, take all medications as directed. If you have any questions or concerns do not hesitate to return the emergency department for evaluation. Referrals: ADAM TRAORE MD [Primary Care Provider] - Follow up tomorrow
[2019-02-26] MEDS ORDERED: OXYCODONE-ACETAMINOPHEN 5-325 MG TABLET PO ONE (19:17)
[2019-02-26 23:45] VITALS: BP 147/95
== END 2019-02-26 23:46 ==
LOC: ER 16:52
DX: D64.89 Other specified anemias (principal); R53.1 Weakness; N18.6 End stage renal disease; Z99.2 Dependence on renal dialysis; J44.9 Chronic obstructive pulmonary disease, unspecified
CPT/HCPCS: 99283; 86900; 86901; 36415; 36430; 86850; 85025; 80053; 86920; P9016; A9270